=== PATIENT | female | born 1940 | race Caucasian/White ===

== ENCOUNTER 2023-06-13 03:48 | Inpatient (IN) | payer OTHER, SELFPAY ==
[2023-06-12 20:32] VITALS: BMI 25.7
[2023-06-12 20:34] VITALS: BP 147/79
[2023-06-12 20:51] LABS: % Basophils 0.3 % (0-2); % Eosinophils 1.3 % (0-6); % Immature Granulocytes 0.2 % (0-0.5); % Lymphocytes 9.2 % (20.5-51.1); % Monocytes 7.3 % (1.7-9.3); % Neutrophils 81.7 % (42.2-75.2); Absolute Eosinophils 0.1 10^3/uL (0-0.7); Absolute Lymphocytes 0.9 10^3/uL (1.2-3.4); Absolute Monocytes 0.7 10^3/uL (0.1-0.6); Hematocrit 37.9 % (37.0-47.0); Mean Corp Hgb Conc. 34.3 g/dL (33.0-37.0); Mean Corpuscular Hgb 33.5 pg (27.0-31.0); Mean Corpuscular Volume 97.7 fL (81.0-99.0); Mean Platelet Volume 9.1 fL (7.4-10.4); Nucleated Red Blood Cells % 0 %; Platelet Count 308 10^3/uL (130-400); Red Blood Cell Count 3.88 10^6/uL (4.20-5.40); Red Cell Dist. Width 12.4 % (11.5-14.5); White Blood Cell Count 9.8 10^3/uL (4.8-10.8)
[2023-06-12 21:00] VITALS: BP 136/70
[2023-06-12 21:01] LABS: ALT (SGPT) 20 U/L (0-35); AST (SGOT) 23 U/L (14-36); Albumin 4.3 g/dl (3.5-5.0); Alkaline Phosphatase 85 U/L (38-126); Blood Urea Nitrogen 34 mg/dl (7-17); Calcium 9.4 mg/dl (8.4-10.2); Carbon Dioxide 25 mmol/L (22-30); Chloride 106 mmol/L (98-107); Estimated Creatinine Clearance 24 ml/min; Glucose 109 mg/dl (70-99); Potassium 4.4 mmol/L (3.5-5.1); Sodium 137 mmol/L (135-145); Total Bilirubin 0.4 mg/dl (0.2-1.3); Total Protein 7.1 g/dl (6.3-8.2); eGFR 40.55
--- NOTE | 2023-06-12 21:01 | ED.GENMED ---
History of Present Illness
General
Chief Complaint: Rectal Bleeding
Source: patient and records
Time Seen by Provider: 06/12/23 20:31
Nursing documentation reviewed up to this point in time: agreed with
Travel History
Have you had any contact with someone who has COVID-19?: No
Do you have any symptoms of coronavirus? Fever > 100 degrees, chills, cough, shortness of breath, sore throat, loss of taste or smell, muscle aches, or headache?: No
History of Present Illness
History of Present Illness:
83-year-old female presents with rectal bleeding onset earlier today she had intermittent bleeding previously from hemorrhoids told she was not a surgical candidate she takes Eliquis twice a day she had a prior stroke apparently has had A-fib, she
has no abdominal pain no hematuria, feels scared but no weakness no syncope
Past History
Past History
ED Past Medical History: CVA, HTN, Hypercholesterolemia, Psychiatric (Depression/anxiety) and Other (DVT, spinal stenosis)
ED Past Surgical History: None
Social History
Tobacco: Non-smoker
Alcohol: Occasional
Drug: None
Personal:
Living: other (Independent living [place])
Employment: Retired
Family History
Family History: CAD and Other (Stroke)
Review of Systems
Review of Systems
All Other Systems: Not applicable
Constitutional: Denies fatigue
EENT: Reports no symptoms
Respiratory: Reports no symptoms
Cardiac: Reports no symptoms
ABD/GI: Reports bloody stools (Blood clots); Denies pain
Musculoskeletal: Reports no symptoms
Skin: Reports no symptoms
Hematologic/Lymphatic: Reports no symptoms
Psychiatric: Reports no symptoms
Phy Exam
Physical Exam
Physical Exam:
Physical Exam
General: no apparent distress, not acutely ill
Neck: No jaundice
Heart: Regular
Lungs: no acute respiratory distress.
Abdomen: Nontender
Rectal, excoriated red external hemorrhoids no obvious active bleeding
Neuro: alert and oriented. Left arm greater than leg weakness
Skin: no rash
Psychiatric: cooperative
Extremities: no edema.
Course
Orders/Labs/Results
Orders:
Orders
06/12/23 20:31
IV Insert/Care/Rem.- Treatment PRN
06/12/23 20:37
Comprehensive Metabolic Panel Urgent
PTT Urgent
Prothrombin Time Urgent
06/12/23 20:38
Type+Screen Urgent
Complete Blood Count/With Diff Urgent
06/12/23 20:52
Electrocardiogram (*1) Urgent
Reason for Study: Atrial Fibrillation
EKG- Treatment ONCE
06/12/23 21:03
Phenyleph/Pramoxin/Glycr/W.pet [Preparation H Max Strength Pain Relief Cream] See Dose Instructions RECTAL NOW STA
06/12/23 22:18
CT Abd/pelvis W Iv Cont Urgent
Comment:
Reason For Exam: pain bloody stools
06/12/23 22:19
STOOL [C difficile Antigen & Toxins] Urgent
ECDRIC Source: Feces/Stool
Specimen Description:
Stool Culture Urgent
CEDRIC Source: Feces/Stool
Specimen Description:
0.9% Sodium Chloride 1000 ml [Nss] 1,000 ml IV BOLUS
Morphine Sulfate 2 mg IV NOW STA
06/12/23 23:40
Urinalysis Reflex To Culture Urgent
Date Specimen was Collected: 06/13/23
Time Specimen was Collected: 00:31
06/13/23 00:08
Straight cath- Treatment ONCE
Morphine Sulfate 2 mg IV NOW STA
06/13/23 01:02
Urine Microscopic Reflex Cult Urgent
Urine Culture Urgent
CEDRIC Source: U
Specimen Description:
Date Specimen was Collected: 06/13/23
Time Specimen was Collected: 00:31
01/17/24 01:48
Aztreonam [Azactam] 2,000 mg IV NOW STA
Abnormal Lab Results
06/12/23 06/12/23 06/13/23
20:37 20:38 01:02
RBC 3.88 L 10^6/uL
(4.20-5.40)
MCH 33.5 H pg
(27.0-31.0)
Absolute Neuts (auto) 8.0 H 10^3/uL
(1.4-6.5)
Absolute Lymphs (auto) 0.9 L 10^3/uL
(1.2-3.4)
Absolute Monos (auto) 0.7 H 10^3/uL
(0.1-0.6)
Neutrophils % 81.7 H %
(42.2-75.2)
Lymphocytes % 9.2 L %
(20.5-51.1)
BUN 34 H mg/dl
(7-17)
Creatinine 1.3 H mg/dL
(0.6-1.0)
Glucose 109 H mg/dl
(70-99)
Ur Occult Blood Reflex 4+ A
(Negative)
Urine Nitrite (Reflex) Positive A
(Negative)
Leukocyte Esterase Rfl 2+ A
(Negative)
Urine RBC >100 A /HPF
(0-2)
Urine WBC (Reflex) >100 A /HPF
(0-5)
Urine Bacteria (Reflex) Many A
(Negative)
06/12/23 20:38
06/12/23 20:37
Vital Signs
Initial and Last Documented VS:
Initial Vital Signs
Temp Pulse Resp Pulse Ox
98.2 F 87 16 97
06/12/23 20:32 06/12/23 20:32 06/12/23 20:32 06/12/23 20:32
Last Documented Vital Signs
Temp Pulse Resp BP Pulse Ox
98.6 F 90 22 149/71 96
06/13/23 00:50 06/13/23 01:15 06/13/23 01:15 06/13/23 01:00 06/13/23 01:15
MDM/Problems Addressed
Differential Diagnosis Includes:
Hemorrhoidal bleeding anemia diverticulosis malignancy
MDM/Problems Addressed:
Rectal bleeding
Chronic conditions affecting care:
A-fib anticoagulated
Acute Exacerbation and/or Progression of Chronic Illness:
A-fib anticoagulated
*Pulse Oximetry
Patient hypoxic: no
*Critical Care Note
Total Time (30-74mins, 75-104mins- exclusive of procedures): Not Applicable
Update Note
Update Note:
9:10 PM bleeding appears to have slowed down to my exam but she did have a lot of blood on her garment vital signs are stable however situation she has had a stroke not a great candidate to stop her anticoagulant
Will check H&H start some local therapies that her hemorrhoids check EKG
9:57 PM H&H noted
10:15 PM patient has lower abdominal cramping we will check stool studies CT scan prior CT noted start on fluids
1150pm---Ct noted, will check Ua
1:49 AM urinalysis noted culture pending allergies noted patient requiring multiple doses of pain meds, also has some painless rectal bleeding earlier we will admit
ED Attending Note
-
Portions of this chart may have been created with voice recognition software.� Occasional wrong word or��sound alike� substitutions may have occurred due to the inherent limitations of voice recognition software.
Discharge Plan
Departure
Patient Disposition: Admit
Date of Disposition: 06/13/23
Time of Disposition: 01:49
Admit to: Med/Surg
Presentation/result/management discussed w/ accepting MD/DO: Hospitalist
Patient with high blood pressure during this ER visit?: No
Condition: Fair
Discharge Problem:
Painless rectal bleeding, Urinary tract infection
Prescriptions:
No Action
tramadol 50 mg Tablet
50 mg PO DAILY PRN (Reason: mild pain)
lorazepam 0.5 mg Tablet
0.5 mg PO [id number] MDD 2 tab/24 hr PRN (Reason: Anxiety)
bisacodyl 10 mg Suppository
10 mg CA DAILY PRN (Reason: constipation)
polyethylene glycol 3350 [Miralax] 17 gram/dose Powder
25.5 g PO DAILY
olopatadine 0.2 % Drops
1 drp BOTH EYES DAILYPRN PRN (Reason: conjunctivitis)
Repatha SureClick 140 mg/mL Pen Injector
140 mg SC MONTHLY@2200
Rx Instructions:
06/12/2023, administer on the 1st of every month.
acetaminophen 325 MG tablet
650 mg PO BIDPRN PRN (Reason: mild pain)
citalopram 10 MG tablet
10 mg PO HS
Rx Instructions:
06/12/2023, take with 40 mg for a total of 50 mg.
citalopram 40 mg Tablet
40 mg PO HS
Rx Instructions:
06/12/2023, take with 10 mg for a total of 50 mg.
docusate sodium 100 MG capsule
100 mg PO HS
Metamucil Packet
1 packet PO DAILY
acetaminophen 500 mg Tablet
1,000 mg PO Q8HPRN PRN (Reason: mild pain)
pantoprazole [Protonix] 40 mg Tablet,Delayed Release (Dr/Ec)
40 mg PO DAILY
Biofreeze 0.2-3.5 % Gel
1 applic TOPICAL QIDPRN PRN (Reason: mild pain)
Myrbetriq 25 mg Tablet Extended Release 24 Hr
25 mg PO QPM
sennosides [senna] 8.6 mg Tablet
8.6 mg PO HS PRN (Reason: constipation)
Preparation H Suppository
1 supp CA DAILYPRN PRN (Reason: pruritis)
nystatin 100,000 unit/gram Powder
1 applic TOPICAL BID PRN (Reason: vulvovaginal candidiasis/yeast infection)
fluticasone propionate 50 mcg/actuation [place],Suspension
2 spray INTRANASAL DAILY PRN (Reason: allergic rhinitis)
Centrum Silver Tablet
1 tab PO DAILY
Salonpas Adhesive Patch,Medicated
1 patch TOPICAL [id number] PRN (Reason: apply to back and/or knees)
Preparation H Cream
1 applic topical DAILYPRN PRN (Reason: inflamed hemorrhoids)
Balmex (petrolatum) 51.1 % Ointment
1 applic TOPICAL DAILY PRN (Reason: skin irritation)
Desitin Daily Defense 13 % Cream
1 applic TOPICAL TIDPRN PRN (Reason: rectal area pain)
Calmol-4 76-10 % Suppository
1 supp CA HS
Boost 0.04 gram- 1 kcal/mL Liquid
1 ea PO DAILY
Benadryl Itch Stopping Cream
1 applic topical Q8HPRN PRN (Reason: skin rash)
Eliquis 2.5 MG tablet
2.5 mg PO BID Qty: 60 0RF
Referrals:
Dorothea Asencio CRNP [Family Provider] -
Interventions
Interventions:
*Risk Screen - Suicide Last Done: 06/12/23 20:32
*General Assessment Last Done: 06/12/23 20:32
*Neglect/Abuse Screening Last Done: 06/12/23 20:32
ED- Fall Risk Assessment Last Done: 06/12/23 20:32
*ED COVID-19 Vaccine History Last Done: 06/12/23 20:32
FT-Jsyois-Oznjnvcqpd Assessment Last Done: 06/12/23 20:32
ED- Cardiac Assessment Last Done: 06/12/23 20:32
ED- Pulmonary Assessment Last Done: 06/12/23 20:32
[2023-06-12 21:02] LABS: APTT 29.3 Sec (23.4-35.0); INR 1.09; PT 14.4 Sec (11.4-14.6)
[2023-06-12] MEDS: PREPARATION H MAX STRENGTH PAIN RELIEF CREAM 1 APPLIC RECTAL (21:29)
[2023-06-12 22:00] VITALS: BP 133/68
[2023-06-12] MEDS: NSS 1000 IV (22:30)
[2023-06-12] MEDS: MORPHINE SULFATE 2 MG IV (22:31)
[2023-06-13] VITALS (30 sets, daily range): BP systolic 82–149; BP diastolic 47–103; PULSE 79–80; O2SAT 96–97
[2023-06-13 01:13] LABS: Urine Albumin Trace (Neg - Trace); Urine Bilirubin Negative (Negative); Urine Color Yellow; Urine Glucose Negative (Negative); Urine Ketone Negative (Negative); Urine Leukocyte 2+ (Negative); Urine Nitrite Positive (Negative); Urine Occult Blood 4+ (Negative); Urine Specific Gravity 1.005 (<1.030); Urine Urobilinogen Negative (Neg - 1+)
[2023-06-13 01:14] LABS: Urine Character Cloudy (Clear)
[2023-06-13] MEDS: MORPHINE SULFATE 2 MG IV (01:16)
[2023-06-13 01:28] LABS: Urine Amorphous Seen; Urine Bacteria Many (Negative); Urine Red Blood Cell >100 /HPF (0-2); Urine Squamous Cell >30 /LPF (Few); Urine Urothelial Cell >30 /LPF (FEW); Urine White Cell >100 /HPF (0-5)
[2023-06-13] MEDS: AZACTAM 2000 MG IV (02:06)
[2023-06-13] MEDS: ZOFRAN 4 MG IV (02:14)
[2023-06-13] MEDS: OFIRMEV 100 IV (02:15)
--- NOTE | 2023-06-13 03:18 | HPS.HSE ---
Family Physician
-
Family Physician: Dorothea Asencio
Chief Complaint
-
'Side Pain', Rectal Bleeding
History of Present Illness
Patient is an 83y F with PMH significant for multiple prior strokes, dyslipidemia and internal hemorrhoids who presents to ED complaining of rectal bleeding and lower back / side pain. Patient states that she has noted BRBPR on multiple
occasions today. She has discomfort / burning in the rectal area. She also complains of pain / discomfort on her L and R iliac areas. This pain radiates across her back. No radiation into the legs. Patient had some nausea here in the ED, but no
emesis. She denies any fevers or chills. She denies any urinary complaints and states that she has had UTIs in the past and knows when she has one.
Patient had been evaluated previously for hemorrhoid surgery; however, she states that she was told she was prohibitive risk for surgery.
She takes Eliquis for her history of recurrent / multiple CVAs; although, it does not appear that she has ever been noted to have A-Fib.
Medical History
Past Medical History
Past Medical History: Reports Other
Additional Past Medical History:
ASCVD / Multiple Prior CVAs
Dyslipidemia
Hemorrhoids (External and Internal)
Spinal Stenosis / Chronic Back Pain
Hypervascular Bladder Lesion
Left Renal Cystic Lesion
History of LLE DVT (post-CVA)
Large Hiatal Hernia / GERD
Statin Intolerance
Past Surgical History: Reports Other
Additional Past Surgical History:
T&A
RLE Vein Stripping
Social History
Tobacco: Non-smoker
Alcohol: None
Drug: None
Living: Jail
Family History
Family History: Other (Mother: Longevity, CVA Father: CAD Sister: CVA, HTN)
Allergies / Home Medications
Allergies reflects when Allergies were last updated in [facility].
Home Medications with original date entered in [facility]
Allergy/Medication List:
Allergies
Allergy/AdvReac Type Severity Reaction Status Date / Time
aspirin [From Aggrenox] Allergy Nausea / Verified 04/16/23 14:22
Vomiting
Cephalosporins Allergy Unknown Verified 04/16/23 14:22
dipyridamole [From Aggrenox] Allergy Nausea / Verified 04/16/23 10:28
Vomiting
loratadine Allergy Unknown Verified 04/16/23 14:22
Penicillins Allergy Unknown Verified 04/16/23 10:28
potassium Allergy Unknown Verified 04/16/23 14:22
Sdggtvw-QTU-SzD Reductase Allergy Unknown Verified 04/16/23 14:22
Inhibitor
Sulfa (Sulfonamide Allergy Unknown Verified 04/16/23 10:28
Antibiotics)
Home Medications
apixaban 2.5 mg tablet (Eliquis) 2.5 mg PO BID #60 tabs 03/08/21
acetaminophen 325 mg tablet 650 mg PO BIDPRN PRN mild pain 11/19/22
bisacodyl 10 mg rectal suppository [address] DAILY PRN constipation 11/19/22
citalopram 10 mg tablet 10 mg PO HS 11/19/22
evolocumab 140 mg/mL subcutaneous pen injector (Repatha SureClick) 140 mg SC MONTHLY@2200 11/19/22
lorazepam 0.5 mg tablet 0.5 mg PO [id number] PRN Anxiety 11/19/22
olopatadine 0.2 % eye drops 1 drp BOTH EYES DAILYPRN PRN conjunctivitis 11/19/22
polyethylene glycol 3350 17 gram/dose oral powder (Miralax) 25.5 g PO DAILY 11/19/22
tramadol 50 mg tablet 50 mg PO DAILY PRN mild pain 11/19/22
acetaminophen 500 mg tablet 1,000 mg PO Q8HPRN PRN mild pain 04/16/23
camphor-menthol 0.2 %-3.5 % topical gel 1 applic topical QIDPRN PRN mild pain 04/16/23
citalopram 40 mg tablet 40 mg PO HS 04/16/23
docusate sodium 100 mg capsule 100 mg PO HS 04/16/23
mirabegron 25 mg tablet,extended release 24 hr (Myrbetriq) 25 mg PO QPM 04/16/23
pantoprazole 40 mg tablet,delayed release (Protonix) 40 mg PO DAILY 04/16/23
psyllium 1 packet PO DAILY 04/16/23
Benadryl Itch Stopping Cream 1 applic topical Q8HPRN PRN skin rash 06/12/23
camphor-methyl salicylate-menthol topical patch 1 patch topical [id number] PRN apply to back and/or knees 06/12/23
cocoa butter-shark liver oil rectal suppository [address] DAILYPRN PRN pruritis 06/12/23
cocoa butter-zinc oxide 76 %-10 % rectal suppository (Calmol-4) [address] HS 06/12/23
fluticasone propionate 50 mcg/actuation nasal spray,suspension 2 spray intranasal DAILY PRN allergic rhinitis 06/12/23
food supplemt, lactose-reduced 0.04 gram-1 kcal/mL oral liquid (Boost) 1 ea PO DAILY 06/12/23
oxkjzxbbuejl-degrperl-liiyuo tablet 1 tab PO DAILY 06/12/23
nystatin 100,000 unit/gram topical powder 1 applic topical BID PRN vulvovaginal candidiasis/yeast infection 06/12/23
phenyleph-shark liver ixk-qcdzje-itd rectal cream 1 applic topical DAILYPRN PRN inflamed hemorrhoids 06/12/23
sennosides 8.6 mg tablet (senna) 8.6 mg PO HS PRN constipation 06/12/23
white petrolatum 51.1 % topical ointment (Balmex (petrolatum)) 1 applic topical DAILY PRN skin irritation 06/12/23
zinc oxide 13 % topical cream (Desitin Daily Defense) 1 applic topical TIDPRN PRN rectal area pain 06/12/23
Review of Systems
-
History Source: Patient
A 12 point ROS was completed and negative except as noted: Yes
Constitutional: Denies Fever or Chills
Respiratory: Denies Cough or Trouble Breathing
Cardiac: Denies Chest Pain or Palpitations
Abdomen/GI: Reports Abdominal Pain, Nausea and Other (Rectal bleeding / burning.); Denies Vomiting, Diarrhea or Constipated
: Reports Frequency; Denies Dysuria or Flank Pain
Musculoskeletal: Reports Other (Back Pain.)
Neurological: Denies Dizzy or Headache
Psych: Denies Depression or Anxiety
Physical Exam
Vital Signs
Vital Signs
Temp Pulse Resp BP Pulse Ox
98.6 F 95 21 147/81 93
06/13/23 00:50 06/13/23 02:15 06/13/23 02:15 06/13/23 02:01 06/13/23 02:15
Physical Exam
General: Other (83y F in no acute distress.)
HEENT: Moist mucous membranes and PERRLA
Respiratory: Clear; No Wheezes, Rales or Rhonchi
Cardiac: S1/S2, Regular Rhythm and Murmur (II/ MARNI)
GI: Soft, Non Distended, Normal Bowel Sounds and Other (Mildly / diffusely tender. Pos BS. No rebound or guarding.)
Musculoskeletal: No Clubbing, No Cyanosis and No Edema
Neuro: AO x 3
Laboratory Results
-
06/12/23 20:38
06/12/23 20:37
Laboratory Results
PT 14.4 Sec (11.4-14.6) 06/12/23 20:37
INR 1.09 06/12/23 20:37
APTT 29.3 Sec (23.4-35.0) 06/12/23 20:37
Total Bilirubin 0.4 mg/dl (0.2-1.3) 06/12/23 20:37
AST 23 U/L (14-36) 06/12/23 20:37
ALT 20 U/L (0-35) 06/12/23 20:37
Alkaline Phosphatase 85 U/L (38-126) 06/12/23 20:37
Impression/Plan
-
A/P: Patient is an 83y F with PMH significant for priro strokes and known hemorrhoids who presents to ED complaining of rectal bleeding.
Rectal Bleeding
Internal / External Hemorrhoids
- Admit for further evaluation and treatment.
- Seems very likely that hemorrhoids are source of bleeding; though, with complain of abdominal discomfort will rule out other causes.
- Hgb is stable / somewhat higher than prior baseline.
- Follow for recurrent bleeding.
- Hold Eliquis (see below).
- GI evaluation.
- Monitor for any new symptoms, BP changes, etc.
- Patient previously set for hemorrhoid surgery, but states that she was told she was not a candidate.
- Continue bowel regimen to avoid straining / constipation.
Pain Syndrome
Spinal Stenosis
- Unclear if pain 'on both sides' as patient describes it is at all related to rectal bleeding.
- Patient with known chronic pain issues and spinal stenosis as well.
- Follow for any new / worsening symptoms.
- Lidoderm +/- tramadol as needed for pain control.
- PT / OT evaluations.
Questionable UTI
- UA is contaminated and not useful in diagnosis.
- CT findings noted and appear to be chronic based on prior imaging studies.
- Patient adamant that she has no symptoms c/w UTI.
- Will observe off of further abx for now.
- Follow-up culture data and monitor for any new symptoms.
ASCVD
- Patient with history of multiple prior CVAs; though, no documented arrhythmia / A-Fib.
- It is not entirely clear why she is on Eliquis in lieu of more traditional antiplatelet regimen.
- Will hold Eliquis acutely given bleeding.
- ? remain off of this if patient can tolerates ASA +/- Plavix.
- No recent / new focal neurologic symptoms.
- On Repatha as she has verified statin intolerance.
Hiatal Hernia / GERD
- Stable. Continue PPI.
Renal / Bladder Abnormalities
- CT scan shows L renal lesion (probably cystic lesion noted on prior studies) and bladder thickening (vascular lesions appreciated on prior studies as well).
- Neither seems acutely relevant.
- Follow-up as an outpatient with comparison / additional imaging if desired.
History of LLE DVT
DVT Prophylaxis
- Prior DVT occurred post-stroke, presumably due to hospitalization / immobility.
- Holding Eliquis given acute bleeding as noted above.
- SCDs for now.
Code Status: Full
[2023-06-13] MEDS: NSS 500 IV (04:33)
[2023-06-13 04:37] LABS: Hematocrit 30.9 % (37.0-47.0); Hemoglobin 10.6 g/dL (12.0-16.0); Mean Corp Hgb Conc. 34.3 g/dL (33.0-37.0); Mean Corpuscular Hgb 33.1 pg (27.0-31.0); Mean Corpuscular Volume 96.6 fL (81.0-99.0); Platelet Count 230 10^3/uL (130-400); Red Cell Dist. Width 12.3 % (11.5-14.5); White Blood Cell Count 10.2 10^3/uL (4.8-10.8)
[2023-06-13 04:50] LABS: Blood Urea Nitrogen 32 mg/dl (7-17); Calcium 8.5 mg/dl (8.4-10.2); Carbon Dioxide 21 mmol/L (22-30); Chloride 106 mmol/L (98-107); Estimated Creatinine Clearance 29 ml/min; Glucose 115 mg/dl (70-99); Potassium 4.2 mmol/L (3.5-5.1); Sodium 134 mmol/L (135-145); eGFR 49.55
[2023-06-13] MEDS: NSS 1000 IV (05:58)
--- NOTE | 2023-06-13 07:41 | W.PN.HOSP.TC ---
Today's Communication/Plan
-
see plan
Assessment / Plan
Assessment / Plan
A/P:� Patient is an 83y F with PMH significant for prior strokes and known hemorrhoids who presents to ED complaining of rectal bleeding.
Rectal Bleeding
Internal / External Hemorrhoids
�- Seems very likely that hemorrhoids are source of bleeding; though, with complain of abdominal discomfort will rule out other causes.
�- Hgb drop overnight from 13 to 10.6, no reported bleeding overnight (13 outlier?) Repeat at 10AM. --> blood consent signed
�- Hold Eliquis (see below).
�- GI evaluation.
�- Patient previously set for hemorrhoid surgery, but states that she was told she was not a candidate.
�- Continue bowel regimen to avoid straining / constipation.
Pain Syndrome
Spinal Stenosis
�- Patient with known chronic pain issues and spinal stenosis as well, likely MSK as exacerbated by movement
�- trial of K pad
�- Lidoderm +/- tramadol as needed for pain control.
�- PT / OT evaluations.
Questionable UTI
�- UA is contaminated and not useful in diagnosis.
�- CT findings noted and appear to be chronic based on prior imaging studies.
�- Patient adamant that she has no symptoms c/w UTI.
�- Will observe off of further abx for now.
�- Follow-up culture data and monitor for any new symptoms.
ASCVD
�- Patient with history of multiple prior CVAs; though, no documented arrhythmia / A-Fib.
�- It is not entirely clear why she is on Eliquis in lieu of more traditional antiplatelet regimen.
�- per Dr. Mcrae's note 03/08/21: '�Patient refused to take aspirin and was fine starting Eliquis.' after acute left occipital infarct and 'Patient considering going back on aspirin and stopping Eliquis.'
- consider switching to aspirin on DC once acute bleeding resolved - will discuss with PCP as there is also dx DVT in chart (although patient denies?)
�- On Repatha as she has verified statin intolerance.
Hiatal Hernia / GERD
�- Stable.� Continue PPI.
Renal / Bladder Abnormalities
�- CT scan shows L renal lesion (probably cystic lesion noted on prior studies) and bladder thickening (vascular lesions appreciated on prior studies as well).
�- Neither seems acutely relevant.
�- Follow-up as an outpatient with comparison / additional imaging if desired.
History of LLE DVT
DVT Prophylaxis
�- Prior DVT occurred post-stroke, presumably due to hospitalization / immobility.
�- Holding Eliquis given acute bleeding as noted above.
�- SCDs for now.
Code Status:� Full
Anticipated Discharge: 24 - 48 hours
Subjective/Interval History
-
Date of Service: June 13, 2023
no bleeding overnight confirmed by RN report
patient reporting pain in her sides, particularly left she states she has had it for a while and she's given exercises and that can aggravate pain
Objective Data
-
Labs:
Laboratory Results
06/12/23 06/12/23 06/13/23
20:37 20:38 04:31
WBC 9.8 10.2
Hgb 13.0 10.6 L
Hct 37.9 30.9 L
Plt Count 308 230 D
PT 14.4
INR 1.09
APTT 29.3
Sodium 137 134 L
Potassium 4.4 4.2
Chloride 106 106
Carbon Dioxide 25 21 L
BUN 34 H 32 H
Creatinine 1.3 H 1.1 H
Glucose 109 H 115 H
Calcium 9.4 8.5
Total Bilirubin 0.4
AST 23
ALT 20
Alkaline Phosphatase 85
06/13/23
10:00
WBC
Hgb Pending
Hct Pending
Plt Count
PT
INR
APTT
Sodium
Potassium
Chloride
Carbon Dioxide
BUN
Creatinine
Glucose
Calcium
Total Bilirubin
AST
ALT
Alkaline Phosphatase
Vital Signs:
Vital Signs
Temp Pulse Resp BP Pulse Ox
98.6 F 87 17 115/60 96
06/13/23 00:50 06/13/23 06:45 06/13/23 06:45 06/13/23 06:30 06/13/23 06:45
Review of Systems
-
History Source: Patient
All other systems: Reviewed and negative
Physical Exam
-
General: No Apparent Distress and Appears Chronically Ill
HEENT: PERRLA
Respiratory: Clear to Auscultation; Negative Wheezes
Cardiac: S1/S2
GI: Other (tenderness b/l upper abdomen below rib cage )
Musculoskeletal: No Clubbing, No Cyanosis and No Edema
Neuro: AO x 3
Psych: Anxious
Data Reviewed
-
Diagnostic Radiology: Report Reviewed by me
Labs: Labs Reviewed by me
[2023-06-13] MEDS: MIRALAX 17 GRAMS PO (07:45)
[2023-06-13] MEDS: TYLENOL 1000 MG PO ×3 (07:45→21:44)
[2023-06-13] MEDS: PROTONIX 40 MG PO (07:45)
[2023-06-13] MEDS: LIDOCAINE 4% PATCH 1 PATCH TOPICAL (07:46)
[2023-06-13] MEDS: COLACE 100 MG PO ×2 (07:46→20:36)
--- NOTE | 2023-06-13 10:09 | CON.GI ---
Addendum entered and electronically signed by Billy Burciaga MD 06/13/23 12:21:
I saw and examined the patient.
The HEAD OF ADVERTISING or PA's note was reviewed and I agree with the note.
Comment: 83yo female presents with rectal bleeding. She has hx hemorrhoids and was set up for surgery March but changed mind. She has had constipation treated with miralax and suppository. She is on Eliquis for hx DVT and CVA. Last
colonoscopy was years ago, in [place]. She had deferred colonoscopy in past. Now her Hgb was 13 on admission, down to 10 on repeat. She took Eliquis today
REC:
Pt states she is agreeable to colonoscopy now
Will hold eliquis, took a dose today
Prep for colonoscopy after washout
Trend Hgb
Possible causes hemorrhoids, diverticular, ectasia, malignancy
Original Note:
Consultation
-
Date/Time Consultation Requested: 06/13/236
Date/Time Consultation Performed: 06/13/23 0945
Requesting Provider: Dr. Rodriguez
Performing Provider: Dr. Burciaga/VANESSA Cervantes
Reason for Consultation: rectal bleeding
Medical History
Chief Complaint / HPI
Chief Complaint: rectal bleeding
History of Present Illness:
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
grade 4 hemorrh[address] has seen Dr[address] Torres and Dr. Chester in the past. Patient was supposed to have hemorrhoidal surgery in March 2023 however canceled the surgery. The patient decided to pursue medical management. The patient states that
she had not had a bowel movement for 5 days leading up to her admission. She states that she was given a suppository every day and MiraLAX was increased and the on the fifth day she had a bowel movement. She states that she had rectal bleeding
every day however the night prior to admission she started having increased rectal bleeding with some clots which prompted her evaluation in the ER. The patient is on Eliquis given her history of DVT and multiple CVAs. The patient has had no
further signs of bleeding since arrival in the emergency room per patient and RN. The patient did have some mild nausea prior to arrival in the emergency room. She is tolerating a clear liquid diet. She also does complain of bilateral hip pain.
She denies any fevers, chills, vomiting, melena, dysphagia or odynophagia.
Past Medical History
Past Medical History: CVA, Hypercholesterolemia and Other (Chronic back pain, spinal stenosis, hemorrhoids, hypervascular bladder lesion, left renal cystic lesion, left lower extremity DVT, large hiatal hernia, GERD, grade 4 hemorrhoids)
Past Surgical History: Tonsilectomy and Other (Right lower extremity vein stripping)
Social History
Tobacco: Non-Smoker
Alcohol: None
Drug: None
Living: Prison
Family History
Family History: Other (No family history of gastrointestinal malignancy or inflammatory bowel disease)
Allergies / Home Medications
Allergy/AdvReac Type Severity Reaction Status Date / Time
aspirin [From Aggrenox] Allergy Nausea / Verified 04/16/23 14:22
Vomiting
Cephalosporins Allergy Unknown Verified 04/16/23 14:22
dipyridamole [From Aggrenox] Allergy Nausea / Verified 04/16/23 10:28
Vomiting
loratadine Allergy Unknown Verified 04/16/23 14:22
Penicillins Allergy Unknown Verified 04/16/23 10:28
potassium Allergy Unknown Verified 04/16/23 14:22
Sjqgwlk-SOB-KeK Reductase Allergy Unknown Verified 04/16/23 14:22
Inhibitor
Sulfa (Sulfonamide Allergy Unknown Verified 04/16/23 10:28
Antibiotics)
Medication Instructions Recorded
apixaban 2.5 mg tablet (Eliquis) 2.5 mg PO BID #60 tabs 03/08/21
acetaminophen 325 mg tablet 650 mg PO BIDPRN PRN mild pain 11/19/22
bisacodyl 10 mg rectal suppository 10 mg SD DAILY PRN constipation 11/19/22
citalopram 10 mg tablet 10 mg PO HS Mental Health 11/19/22
evolocumab 140 mg/mL subcutaneous 140 mg SC MONTHLY@2200 High 11/19/22
pen injector (Dion Lala) Cholesterol
lorazepam 0.5 mg tablet 0.5 mg PO [id number] PRN Anxiety 11/19/22
olopatadine 0.2 % eye drops 1 drp BOTH EYES DAILYPRN PRN 11/19/22
conjunctivitis
polyethylene glycol 3350 17 25.5 g PO DAILY 11/19/22
gram/dose oral powder (Miralax)
tramadol 50 mg tablet 50 mg PO DAILY PRN mild pain 11/19/22
acetaminophen 500 mg tablet 1,000 mg PO Q8HPRN PRN mild pain 04/16/23
camphor-menthol 0.2 %-3.5 % 1 applic topical QIDPRN PRN mild 04/16/23
topical gel pain
citalopram 40 mg tablet 40 mg PO HS Mental Health 04/16/23
docusate sodium 100 mg capsule 100 mg PO HS Constipation 04/16/23
mirabegron 25 mg tablet,extended 25 mg PO QPM Urinary Issue 04/16/23
release 24 hr (Myrbetriq)
pantoprazole 40 mg tablet,delayed 40 mg PO DAILY 04/16/23
release (Protonix)
psyllium 1 packet PO DAILY 04/16/23
Benadryl Itch Stopping Cream 1 applic topical Q8HPRN PRN skin 06/12/23
rash
camphor-methyl salicylate-menthol 1 patch topical [id number] PRN apply 06/12/23
topical patch to back and/or knees
cocoa butter-shark liver oil 1 supp SD DAILYPRN PRN pruritis 06/12/23
rectal suppository
cocoa butter-zinc oxide 76 %-10 % 1 supp SD HS Skin Issues 06/12/23
rectal suppository (Calmol-4)
fluticasone propionate 50 2 spray intranasal DAILY PRN 06/12/23
mcg/actuation nasal allergic rhinitis
spray,suspension
food supplemt, lactose-reduced 1 ea PO DAILY nutrition 06/12/23
0.04 gram-1 kcal/mL oral liquid
(Boost)
vibcqoeceabg-kidonyce-ajeacu tablet 1 tab PO DAILY Supplement 06/12/23
nystatin 100,000 unit/gram topical 1 applic topical BID PRN 06/12/23
powder vulvovaginal candidiasis/yeast
infection
phenyleph-shark liver 1 applic topical DAILYPRN PRN 06/12/23
fid-fctoew-iys rectal cream inflamed hemorrhoids
sennosides 8.6 mg tablet (senna) 8.6 mg PO HS PRN constipation 06/12/23
white petrolatum 51.1 % topical 1 applic topical DAILY PRN skin 06/12/23
ointment (Balmex (petrolatum)) irritation
zinc oxide 13 % topical cream 1 applic topical TIDPRN PRN rectal 06/12/23
(Desitin Daily Defense) area pain
Review of Systems
-
All other systems: A 12 pt ROS was Negative except as stated above in HPI
Vital Signs
Temp Pulse Resp BP Pulse Ox
98.1 F 88 16 113/53 95
06/13/23 07:51 06/13/23 07:51 06/13/23 07:51 06/13/23 07:51 06/13/23 07:51
Physical Exam
Exam
General: No Apparent Distress
HEENT: Normocephalic
Respiratory: Clear (Anterior)
Cardiac: Regular Rhythm (Tachy at 109)
GI: Soft, Non Tender, Non Distended and Normal Bowel Sounds
Musculoskeletal: No Edema
Skin: Warm and Dry
Neuro: AO x 3
Psych: Calm
Results
WBC 10.2 10^3/uL (4.8-10.8) 06/13/23 04:31
Hgb 10.6 g/dL (12.0-16.0) L 06/13/23 04:31
Hct 30.9 % (37.0-47.0) L 06/13/23 04:31
MCV 96.6 fL (81.0-99.0) 06/13/23 04:31
Plt Count 230 10^3/uL (130-400) D 06/13/23 04:31
Absolute Neuts (auto) 8.0 10^3/uL (1.4-6.5) H 06/12/23 20:38
PT 14.4 Sec (11.4-14.6) 06/12/23 20:37
INR 1.09 06/12/23 20:37
APTT 29.3 Sec (23.4-35.0) 06/12/23 20:37
Sodium 134 mmol/L (135-145) L 06/13/23 04:31
Potassium 4.2 mmol/L (3.5-5.1) 06/13/23 04:31
Chloride 106 mmol/L (98-107) 06/13/23 04:31
Carbon Dioxide 21 mmol/L (22-30) L 06/13/23 04:31
BUN 32 mg/dl (7-17) H 06/13/23 04:31
Creatinine 1.1 mg/dL (0.6-1.0) H 06/13/23 04:31
Calcium 8.5 mg/dl (8.4-10.2) 06/13/23 04:31
Total Bilirubin 0.4 mg/dl (0.2-1.3) 06/12/23 20:37
AST 23 U/L (14-36) 06/12/23 20:37
ALT 20 U/L (0-35) 06/12/23 20:37
Alkaline Phosphatase 85 U/L (38-126) 06/12/23 20:37
Diagnostic Image Results:
CT Abd/Pelvis with IV contrast:
IMPRESSION:
1. There is thickening of the bladder wall which suggest possible cystitis. There is air in the bladder. Has there been recent catheterization?
2. There are fluid-filled loops of small bowel but no distended small bowel to suggest obstruction.
3. There is thinning of the renal cortices suggesting chronic renal disease. There are bilateral renal cysts. There is a probable complicated cyst on the left which is stable over an 18 month interval.
4. There is a large hiatal hernia.
5. There is severe multilevel degenerative disc disease
Preliminary report provided by [facility].
Electronically signed by Yash Daniels MD 06/13/2023 8:26 AM
Prior GI Procedures:
EGD: declined
Colonoscopy: colonoscopy about 9 years ago when she was in [facility], no polyps. That was the first and only colonoscopy she had.
08/30/22 VCE: nomal
Assessment / Plan
-
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
grade 4 hemorrhoids [address] has seen Dr[address] Torres and Dr. Chester in the past. Patient was supposed to have hemorrhoidal surgery in March 2023 however canceled the surgery. The patient decided to pursue medical management. The patient states that
she had not had a bowel movement for 5 days leading up to her admission. She states that she was given a suppository every day and MiraLAX was increased and the on the fifth day she had a bowel movement. She states that she had rectal bleeding
every day however the night prior to admission she started having increased rectal bleeding with some clots which prompted her evaluation in the ER. Patient initially presents with hemoglobin of 13.0 now down to 10.6. Patient with chronic rectal
bleeding which she states is little amounts every day with increase day prior to arrival in the ER with clots. CT findings showing air and stool in the colon. Fluid-filled loops of small bowel which are not dilated. Patient is on Eliquis for
history of prior CVAs/left lower extremity DVT.
Impression:
Rectal bleeding, chronic. With recent worsening
Anemia
Bilateral hip pain
Chronic anticoagulation
Large hiatal hernia
Plan:
-Eliquis currently on hold
-Trend hemoglobin
-Continue bowel regimen
-Discussion had with patient to possibly consider colonoscopy versus flexible sigmoidoscopy to evaluate lower portion of colon at least. Last colonoscopy approximately 9 years ago in [place]. Patient has refused endoscopic evaluations in the past.
-Transfuse if needed
Data Reviewed
-
CT Scan: Report Reviewed by me
Old Records: Reviewed
-
-
Thank you for consultation and allowing me to participate in the patient's care. Please call the [facility] during the after hours with any questions or concerns.
[2023-06-13 10:17] LABS: Hematocrit 31.8 % (37.0-47.0); Hemoglobin 10.7 g/dL (12.0-16.0)
--- NOTE | 2023-06-13 10:22 | CM ---
CM reviewed medical records. CM met with patient in room. Patient confirmed that she lives a [facility]. 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 She also received medical assistance. Patient reports that she has PT but did not
confirm that she is currently on service with them. Patient has been to [facility] in the past. Patient would be agreeable to VN or SNF as needed. CM will await PT recommendations for further discharge planning efforts.
PLAN: [facility] with VN vs. SNF
--- NOTE | 2023-06-13 14:31 | PTCARENOTE ---
Rec'd Pt from ED in bed to Room 432, 4 West. Pt is AOOx3, oriented to room with call montes in place.
--- NOTE | 2023-06-13 15:47 | W.PN.UPDATE ---
Update Note
Progress Note Update
reached out to PCP who clarified that patient has hx right MCA and lacunar infarcts, DVT 2013. She was on Eliquis from prior MD in [place] given possible intolerance of aspirin and plavix (versus failure?). Linq monitor has been discussed in
cardiology clinic in past.
[2023-06-13] MEDS: MYRBETRIQ EXTENDED RELEASE 25 MG PO (17:17)
[2023-06-13] MEDS: ULTRAM 25 MG PO (19:07)
[2023-06-13 20:15] LABS: Hemoglobin 10.2 g/dL (12.0-16.0)
[2023-06-13] MEDS: CELEXA 50 MG PO (21:42)
[2023-06-13] MEDS: SENOKOT 17.1999999999999993 MG PO (21:44)
[2023-06-14 03:27] VITALS: BP 105/57
[2023-06-14] MEDS: TYLENOL 1000 MG PO ×3 (07:33→21:37)
[2023-06-14] MEDS: LIDOCAINE 4% PATCH 1 PATCH TOPICAL (07:33)
[2023-06-14] MEDS: PROTONIX 40 MG PO (07:34)
[2023-06-14] MEDS: ULTRAM 25 MG PO (07:34)
[2023-06-14] MEDS: COLACE 100 MG PO ×2 (07:34→19:49)
[2023-06-14] MEDS: MIRALAX 17 GRAMS PO (07:36)
[2023-06-14 08:15] VITALS: BP 157/83
[2023-06-14 08:45] LABS: Hematocrit 35.3 % (37.0-47.0); Hemoglobin 11.6 g/dL (12.0-16.0); Mean Corp Hgb Conc. 32.9 g/dL (33.0-37.0); Mean Corpuscular Hgb 33.1 pg (27.0-31.0); Mean Corpuscular Volume 100.9 fL (81.0-99.0); Mean Platelet Volume 9.2 fL (7.4-10.4); Platelet Count 214 10^3/uL (130-400); Red Cell Dist. Width 12.5 % (11.5-14.5); White Blood Cell Count 5.4 10^3/uL (4.8-10.8)
[2023-06-14 09:20] LABS: Blood Urea Nitrogen 20 mg/dl (7-17); Calcium 8.6 mg/dl (8.4-10.2); Carbon Dioxide 25 mmol/L (22-30); Chloride 109 mmol/L (98-107); Estimated Creatinine Clearance 26 ml/min; Glucose 77 mg/dl (70-99); Potassium 4.2 mmol/L (3.5-5.1); Sodium 135 mmol/L (135-145); eGFR 44.64
--- NOTE | 2023-06-14 09:36 | W.PN.HOSP.TC ---
Addendum entered and electronically signed by Michael Barton MD 06/20/23 18:08:
Acute blood loss anemia noted sec to rectal bleeding.
Original Note:
Today's Communication/Plan
-
Await [place]
Follow HH
Holding Eliquis for colo
Assessment / Plan
Assessment / Plan
A/P:� Patient is an 83y F with PMH significant for prior strokes and known hemorrhoids who presents to ED complaining of rectal bleeding.
Rectal Bleeding
Internal / External Hemorrhoids
�- Seems very likely that hemorrhoids are source of bleeding; though, with complain of abdominal discomfort will rule out other causes.
�- Hgb drop overnight from 13 to 10.6, no reported bleeding overnight (13 outlier?) Repeat shows stability . --> blood consent signed
�- Hold Eliquis (see below).
�- [place] after Eliquis washout per GI.
�- Patient previously set for hemorrhoid surgery, but states that she was told she was not a candidate.
�- Continue bowel regimen to avoid straining / constipation.
Pain Syndrome
Spinal Stenosis
�- Patient with known chronic pain issues and spinal stenosis as well, likely MSK as exacerbated by movement
�- trial of K pad
�- Lidoderm +/- tramadol as needed for pain control.
�- PT / OT evaluations.
Questionable UTI
�- UA is contaminated and not useful in diagnosis.
�- CT findings noted and appear to be chronic based on prior imaging studies.
�- Patient adamant that she has no symptoms c/w UTI.
�- Will observe off of further abx for now.
�- Follow-up culture data and monitor for any new symptoms.
ASCVD
�- Patient with history of multiple prior CVAs; though, no documented arrhythmia / A-Fib.
�- It is not entirely clear why she is on Eliquis in lieu of more traditional antiplatelet regimen.
�- per Dr. Mcrae's note 03/08/21: '�Patient refused to take aspirin and was fine starting Eliquis.' after acute left occipital infarct and 'Patient considering going back on aspirin and stopping Eliquis.'
- Dr Stephens reached out to PCP 06/13 who clarified that patient has hx right MCA and lacunar infarcts, DVT 2013.� She was on Eliquis from prior MD in [place] given possible intolerance of aspirin and plavix (versus failure?).� Linq monitor has been
discussed in cardiology clinic in past. �
�- On Repatha as she has verified statin intolerance.
Hiatal Hernia / GERD
�- Stable.� Continue PPI.
Renal / Bladder Abnormalities
�- CT scan shows L renal lesion (probably cystic lesion noted on prior studies) and bladder thickening (vascular lesions appreciated on prior studies as well).
�- Neither seems acutely relevant.
�- Follow-up as an outpatient with comparison / additional imaging if desired.
History of LLE DVT
DVT Prophylaxis
�- Prior DVT occurred post-stroke, presumably due to hospitalization / immobility.
�- Holding Eliquis given acute bleeding as noted above.
�- SCDs for now.
Code Status:� Full
Anticipated Discharge: 24 - 48 hours
Subjective/Interval History
-
Date of Service: June 14, 2023
No rectal bleeding today
Back pain is chronic for her
Objective Data
-
Labs:
Laboratory Results
06/14/23
08:17
WBC 5.4
Hgb 11.6 L
Hct 35.3 L
Plt Count 214
Sodium 135
Potassium 4.2
Chloride 109 H
Carbon Dioxide 25
BUN 20 H
Creatinine 1.2 H
Glucose 77
Calcium 8.6
Vital Signs:
Vital Signs
Temp Pulse Resp BP Pulse Ox
98.8 F 76 20 157/83 93
06/14/23 08:15 06/14/23 08:15 06/14/23 08:15 06/14/23 08:15 06/14/23 08:15
I&O
06/13/23 06/14/23 06/15/23
06:59 06:59 06:59
Intake Total 700 / 700
Balance 700 / 700
Review of Systems
-
Constitutional: Denies Fever
EENT: Denies Sore Throat
Respiratory: Denies Cough or Trouble Breathing
Cardiac: Denies Chest Pain
Abdomen/GI: Denies Abdominal Pain, Nausea or Vomiting
Neuro: Denies Dizzy
Physical Exam
-
General: No Apparent Distress
HEENT: Moist Mucous Membranes
Respiratory: Clear to Auscultation
Cardiac: Regular Rhythm and S1/S2
GI: Soft and Nontender
Neuro: AO x 3
Psych: Calm; Negative Confused
Data Reviewed
-
Labs: Labs Reviewed by me
--- NOTE | 2023-06-14 10:02 | PN.CDI ---
CDI
- -
CDI:
Physician Documentation Request
Admit Date: 06/13/23 03:48
Dear Doctor Mick,
Patient admitted with rectal bleeding.
06/14 PN, 'Seems very likely that hemorrhoids are source of bleeding....Hgb drop overnight from 13 to 10.6, no reported bleeding overnight (13 outlier?)....Repeat shows stability . --> blood consent signed
Based on the above, please clarify, in your progress note, which of the following is the most likely diagnosis you are evaluating, monitoring and/or treating?
Acute blood loss anemia
Insignificant abnormal bleeding
Other
Use of terms such as suspected, likely, concern for, or probable (associated with a specific diagnosis that is being evaluated, monitored, or treated as if it exists) are acceptable and can be coded in the inpatient setting, when documented at the
time of discharge.
Thank you,
Harleen HERNANDEZ,RN,CCDS
CDI Specialist
Available via tiger text
Please use your independent medical judgment in providing your response.
--- NOTE | 2023-06-14 10:04 | CM ---
Reviewed chart and PT notes. Per PT/medical staff, patient would benefit from some skilled rehab prior to returning back to her apartment. Referral sent to [facility] for review. Will await determination regarding bed availability.
Plan: Case management will continue to follow and assist with discharge planning. Indication is for patient to receive some skilled rehab prior to returning home to her SNF. Faxed referral to [facility] through [facility]. Will await determination.
--- NOTE | 2023-06-14 11:36 | W.PN.GI.CBS2 ---
Addendum entered and electronically signed by Billy Burciaga MD 06/14/23 15:03:
I saw and examined the patient.
The EMISSIONS INSPECTOR or PA's note was reviewed and I agree with the note.
Comment: Denies complaints. No further bleeding
REC:
Hgb stable
Pt agreeable to colonoscopy. Prep for tomorrow
Hold Eliiquis
Could be hemorrhoidal but last colonoscopy was 8 yrs ago in [place]
Original Note:
Today's Communication / Plan
-
etiology of bleeding related to hemorrhoids, diverticular, ectasia, malignancy
for colonoscopy tomorrow
will give additional miralax now and colyte later today
cont Eliquis hold last dose 06/13
cont clear diet NPO in AM
hbg improved to 11.7 today
Assessment / Plan
-
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
grade 4 hemorrhoids [address] has seen Dr. Torres and Dr. Chester in the past. Patient was supposed to have hemorrhoidal surgery in March 2023 however canceled the surgery. The patient decided to pursue medical management. The patient states that
she had not had a bowel movement for 5 days leading up to her admission. She states that she was given a suppository every day and MiraLAX was increased and the on the fifth day she had a bowel movement. She states that she had rectal bleeding
every day however the night prior to admission she started having increased rectal bleeding with some clots which prompted her evaluation in the ER. Patient initially presents with hemoglobin of 13.0 now down to 10.6 after admission. Patient
with chronic rectal bleeding which she states is little amounts every day with increase day prior to arrival in the ER with clots. CT findings showing air and stool in the colon. Fluid-filled loops of small bowel which are not dilated. Patient is
on Eliquis for history of prior CVAs/left lower extremity DVT.
Impression:
Rectal bleeding, chronic. With recent worsening
Anemia
Bilateral hip pain
Chronic anticoagulation
Large hiatal hernia
hx CVA/DVT on Eliquis
Plan:
etiology of bleeding related to hemorrhoids, diverticular, ectasia, malignancy
for colonoscopy tomorrow
will give additional miralax now and colyte later today
cont Eliquis hold last dose 06/13
cont clear diet NPO in AM
hbg improved to 11.7 today
Subjective
Subjective
Date of Service: June 14, 2023
clear diet no stools some fullness but no bleeding
Objective
Data Reviewed
Laboratory Data:
Laboratory Results
06/14/23 08:17
06/14/23 08:17
Laboratory Results
PT 14.4 Sec (11.4-14.6) 06/12/23 20:37
INR 1.09 06/12/23 20:37
APTT 29.3 Sec (23.4-35.0) 06/12/23 20:37
Magnesium 2.0 mg/dl (1.6-2.3) 06/14/23 08:17
Total Bilirubin 0.4 mg/dl (0.2-1.3) 06/12/23 20:37
AST 23 U/L (14-36) 06/12/23 20:37
ALT 20 U/L (0-35) 06/12/23 20:37
Alkaline Phosphatase 85 U/L (38-126) 06/12/23 20:37
Vital Signs and I&O:
Vital Signs
Temp Pulse Resp BP Pulse Ox
98.8 F 76 20 157/83 93
06/14/23 08:15 06/14/23 08:15 06/14/23 08:15 06/14/23 08:15 06/14/23 08:15
I&O
06/13/23 06/14/23 06/15/23
06:59 06:59 06:59
Intake Total 700 / 700
Balance 700 / 700
Physical Exam
Physical Exam
HEENT: Anicteric and Moist mucous membranes
Cardiology: Normal Sinus Rhythm
Pulmonary: Clear
GI: Soft, Non Distended and Tender (mild upper abdominal tenderness )
Neuro: Non Focal
[2023-06-14 12:00] VITALS: BP 123/69
[2023-06-14] MEDS: MIRALAX 51 GRAMS PO (12:59)
[2023-06-14 16:00] VITALS: BP 115/88
[2023-06-14] MEDS: NULYTELY SOLUTION 4 LITERS PO (16:20)
[2023-06-14] MEDS: MYRBETRIQ EXTENDED RELEASE 25 MG PO (17:35)
[2023-06-14 19:35] VITALS: BP 118/62
--- NOTE | 2023-06-14 20:43 | PTCARENOTE ---
Addendum entered by Izabella Benz RN 06/15/23 05:42:
Since patient did drink a small amount of prep yesterday afternoon, she did have a few liquid BMs. BMs were mostly liquid but burgundy in the toilet and bright red blood was present when wiping patient.
Original Note:
Instructed patient that she will need to drink the 4L Colyte tonight in prep for colonoscopy tomorrow. Patient working on first cup but states she will not be able to complete entire prep as it is too much fluid for her to take in. Dr. Acuna notified
and states that patient will need to complete prep or colonoscopy will be canceled. Informed both patient and daughter. Patient will not complete prep tonight, Dr. Acuna aware.
[2023-06-14] MEDS: CELEXA 50 MG PO (21:33)
[2023-06-14] MEDS: SENOKOT 17.1999999999999993 MG PO (21:33)
[2023-06-14 23:37] VITALS: BP 136/69
[2023-06-15] VITALS (8 sets, daily range): BP systolic 124–152; BP diastolic 68–89; PULSE 91
[2023-06-15 08:20] LABS: Hematocrit 32.3 % (37.0-47.0); Hemoglobin 11.1 g/dL (12.0-16.0); Mean Corp Hgb Conc. 34.4 g/dL (33.0-37.0); Mean Corpuscular Hgb 32.7 pg (27.0-31.0); Mean Corpuscular Volume 95.3 fL (81.0-99.0); Mean Platelet Volume 9.2 fL (7.4-10.4); Platelet Count 221 10^3/uL (130-400); Red Blood Cell Count 3.39 10^6/uL (4.20-5.40); Red Cell Dist. Width 12.1 % (11.5-14.5); White Blood Cell Count 3.5 10^3/uL (4.8-10.8)
[2023-06-15 09:08] LABS: Blood Urea Nitrogen 17 mg/dl (7-17); Calcium 8.8 mg/dl (8.4-10.2); Carbon Dioxide 22 mmol/L (22-30); Chloride 106 mmol/L (98-107); Estimated Creatinine Clearance 32 ml/min; Glucose 79 mg/dl (70-99); Sodium 135 mmol/L (135-145); eGFR 55.55
--- NOTE | 2023-06-15 09:50 | W.PN.GI.CBS2 ---
Addendum entered and electronically signed by Beth Rose Do, MD 06/15/23 11:03:
I saw and examined the patient.
The TAXI DRIVER SUPERVISOR's note was reviewed and I agree with the note.
Comment: Patient continues to decline prep and colonoscopy. Colonoscopy scheduled for today cancelled. She also declined flex sigm. Exam with Vitals stable. NTTP. Labs reviewed and H/H is stable at 11. Last Cscope is >10yrs ago
Impression
- Intermittent chronic BRBPR
ddx includes hemorrhoids, ulcer or polyp
- Chronic constipation
- Anemia
- Large hiatal hernia
- Chronic anticoagulation
- h/o CVA
- H/o DVT
Recommendations
- H/H stable
- Added anusol suppository QHS
- C/w bowel regimen (important to continue upon d/c back to [facility])
- At this juncture colonoscopy cancelled as she refuses prep. Also refuses flex sigm. Risk/benefits discussed.
- GI will update daughter today
At this juncture no new GI rec will sign off please call for questions
She can FU with her OP GI/Dr Torres
Original Note:
Today's Communication / Plan
-
Bowel regimen
Assessment / Plan
-
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
grade [address] has seen Dr[address] Torres and Dr. Chester in the past. Patient was supposed to have hemorrhoidal surgery in March 2023 however canceled the surgery. The patient decided to pursue medical management. The patient states that
she had not had a bowel movement for 5 days leading up to her admission. She states that she was given a suppository every day and MiraLAX was increased and the on the fifth day she had a bowel movement. She states that she had rectal bleeding
every day however the night prior to admission she started having increased rectal bleeding with some clots which prompted her evaluation in the ER. Patient initially presents with hemoglobin of 13.0 now down to 10.6 after admission. Patient
with chronic rectal bleeding which she states is little amounts every day with increase day prior to arrival in the ER with clots. CT findings showing air and stool in the colon. Fluid-filled loops of small bowel which are not dilated. Patient is
on Eliquis for history of prior CVAs/left lower extremity DVT.
Impression:
Rectal bleeding, chronic. With recent worsening.
Anemia
Bilateral hip pain
Chronic anticoagulation
Large hiatal hernia
hx CVA/DVT on Eliquis
Plan:
etiology of bleeding related to hemorrhoids, diverticular, ectasia, malignancy. Patient did not drink prep. Unsure if she wants to proceed with any kind of endoscopic evaluation. Even discussed possible sigmoidoscopy.
Patient does need chronic bowel regimen at least. Continue senna at bedtime, Colace twice daily, MiraLAX twice daily.
Subjective
Subjective
Date of Service: June 15, 2023
Did not prep for colonoscopy. States she only took a cup or 2 of the GoLytely. Hemoglobin currently stable 11.1 down from 11.6. Patient with a large brown bowel movement with some streaks of blood x 3 this morning. Complains of left lower
quadrant tenderness.
Objective
Data Reviewed
Laboratory Data:
Laboratory Results
06/15/23 07:21
06/15/23 07:21
Laboratory Results
PT 14.4 Sec (11.4-14.6) 06/12/23 20:37
INR 1.09 06/12/23 20:37
APTT 29.3 Sec (23.4-35.0) 06/12/23 20:37
Magnesium 2.0 mg/dl (1.6-2.3) 06/14/23 08:17
Total Bilirubin 0.4 mg/dl (0.2-1.3) 06/12/23 20:37
AST 23 U/L (14-36) 06/12/23 20:37
ALT 20 U/L (0-35) 06/12/23 20:37
Alkaline Phosphatase 85 U/L (38-126) 06/12/23 20:37
Vital Signs and I&O:
Vital Signs
Temp Pulse Resp BP Pulse Ox
98.7 F 70 17 152/89 95
06/15/23 08:00 06/15/23 08:00 06/15/23 08:00 06/15/23 08:00 06/15/23 08:00
I&O
06/14/23 06/15/23 06/16/23
06:59 06:59 06:59
Intake Total 700 / 700
Balance 700 / 700
Physical Exam
Physical Exam
HEENT: Anicteric
Cardiology: Normal Sinus Rhythm
Pulmonary: Clear
GI: Soft, Non Distended, Tender (Left lower quadrant) and Normal Bowel Sounds
Neuro: Non Focal
--- NOTE | 2023-06-15 10:25 | CM ---
Addendum entered by Yaima Chino 06/15/23 16:10:
Call placed to [facility] [phone]
Addendum entered by Yaima Chino 06/15/23 14:18:
Chart reviewed and plan is for skilled placement at [facility] [place] when stable, patient will need updated physical therapy notes to submit to insurance for Auth, NPI for [facility] [place] [id number], Dr Jasmine [phone].
Plan; Need update PT/OT for Auth
Original Note:
manager physical reviewed patient's chart and patient is from [facility], per physical therapy recommendation is for skilled placement, referral was sent to [facility] [place] skilled.
Plan; Skilled placement at [facility] [place] when stable.
[2023-06-15] MEDS: LIDOCAINE 4% PATCH 1 PATCH TOPICAL (10:41)
[2023-06-15] MEDS: PROTONIX 40 MG PO (10:42)
[2023-06-15] MEDS: COLACE 100 MG PO ×2 (10:42→22:13)
[2023-06-15] MEDS: TYLENOL 1000 MG PO ×3 (10:42→22:09)
--- NOTE | 2023-06-15 15:37 | W.PN.HOSP.TC ---
Today's Communication/Plan
-
All discussed with the patient
Discussed with the daughter over the phone
Discussed with the md do resident urgent care and the nurse
Plan to transfer and of greater to senior living from her personal assist.
Otherwise pending placement and clearance from GI to restart Eliquis
Assessment / Plan
Assessment / Plan
Physical exam:
General: Pleasant and mildly confused but awake, alert and oriented x3, not in distress and holds appropriate conversation.
HEENT: No active discharge, ecchymosis or bruising, moist lips, tongue and mucous membrane.
Eyes: No discharge or red conjunctiva, no nystagmus, pupils are reactive and equal
Neck:Supple, no JVD no bruit no goiter.
Respiratory: Normal AP contour and diameter, normal chest wall movement, normal respiratory effort, no respiratory distress,
Lungs: Good air entry bilaterally, no wheezing or rhonchi, no rales or crackles
Heart: S1, S2 regular, normal rate, no added sound.
Gastrointestinal: Positive bowel sounds, soft, nontender, no guarding or rigidity or organomegaly
Musculoskeletal: , no chest wall abnormality or tenderness. All joints and extremities have good range of motion, no muscle tenderness or any joint swelling or tenderness.
Extremities: No pitting edema, good peripheral pulses, good range of motion
Skin: Warm and dry, no ulceration, normal color.
Neurological: Awake, alert and oriented x3, mild degree of cognitive dysfunction and decline appreciated, speech clear and comprehensive, good muscle tone, moves extremities.
A/P:� Patient is an 83y F with PMH significant for prior strokes and known hemorrhoids who presents to ED complaining of rectal bleeding.
Rectal Bleeding
Internal / External Hemorrhoids versus diverticular.
�- Seems very likely that hemorrhoids are source of bleeding; though, with complain of abdominal discomfort will rule out other causes.
�- Hgb drop overnight from 13 to 10.6, and now been in 11 and stable at 11. blood consent signed
�- Hold Eliquis (see below).
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
hospital systems administrator Candelaria Givens aware and I spoke to her personally and she is okay for discharge back to the senior living which takes workup from the md do resident urgent care from changing from personal assist to senior living.
�- Patient previously set for hemorrhoid surgery, but states that she was told she was not a candidate.
-Restarting, Eliquis will defer to GI
Pain Syndrome
Spinal Stenosis
�- Patient with known chronic pain issues and spinal stenosis as well, likely MSK as exacerbated by movement
�- trial of K pad
�- Lidoderm +/- tramadol as needed for pain control.
�- PT / OT evaluations.
Questionable UTI
�- UA is contaminated and not useful in diagnosis.
-
�- CT findings noted and appear to be chronic based on prior imaging studies.
�- Patient adamant that she has no symptoms c/w UTI.
�- Will observe off of further abx for now.
�- Follow-up culture data and monitor for any new symptoms.
ASCVD
�- Patient with history of multiple prior CVAs; though, no documented arrhythmia / A-Fib.
�- It is not entirely clear why she is on Eliquis in lieu of more traditional antiplatelet regimen.
�- per Dr. Mcrae's note 03/08/21: '�Patient refused to take aspirin and was fine starting Eliquis.' after acute left occipital infarct and 'Patient considering going back on aspirin and stopping Eliquis.'
- Dr Stephens reached out to PCP 06/13 who clarified that patient has hx right MCA and lacunar infarcts, DVT 2013.� She was on Eliquis from prior MD in [place] given possible intolerance of aspirin and plavix (versus failure?).� Linq monitor has been
discussed in cardiology clinic in past. �
�- On Repatha as she has verified statin intolerance.
Hiatal Hernia / GERD
�- Stable.� Continue PPI.
Renal / Bladder Abnormalities
�- CT scan shows L renal lesion (probably cystic lesion noted on prior studies) and bladder thickening (vascular lesions appreciated on prior studies as well).
�- Neither seems acutely relevant.
�- Follow-up as an outpatient with comparison / additional imaging if desired.
History of LLE DVT
DVT Prophylaxis
�- Prior DVT occurred post-stroke, presumably due to hospitalization / immobility.
�- Holding Eliquis given acute bleeding as noted above.
�- SCDs for now.
Code Status:� Full
Anticipated Discharge: 24 - 48 hours
Subjective/Interval History
-
Date of Service: June 15, 2023
Seen and examined, awake and alert, not in distress, look like colonoscopy was not done and initial information we get that she says she was not able to complete the bowel prep, but later on she told the nurse and GI and according to the daughter
that she does want to have colonoscopy done. Mimi on and off rectal bleed minimum, but hemoglobin is stable, complain of lower abdominal discomfort but no pain, no nausea or vomiting or any hematemesis hematuria.
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
Objective Data
-
Labs:
Laboratory Results
06/15/23
07:21
WBC 3.5 L
Hgb 11.1 L
Hct 32.3 L
Plt Count 221
Sodium 135
Potassium 4.0
Chloride 106
Carbon Dioxide 22
BUN 17
Creatinine 1.0
Glucose 79
Calcium 8.8
Vital Signs:
Vital Signs
Temp Pulse Resp BP Pulse Ox
98.1 F 78 18 128/70 94
06/15/23 15:15 06/15/23 15:15 06/15/23 15:15 06/15/23 15:15 06/15/23 15:15
I&O
06/14/23 06/15/23 06/16/23
07:59 07:59 07:59
Intake Total 700 / 700
Balance 700 / 700
Review of Systems
-
All other systems: Reviewed and negative
--- NOTE | 2023-06-15 15:54 | CM ---
TC to daughter Candelaria, okay to add her brother Khang Jimenez [phone] as a contact as she is out of town.
Admissions contacted and added additional camera person.
[2023-06-15] MEDS: MYRBETRIQ EXTENDED RELEASE 25 MG PO (17:05)
[2023-06-15] MEDS: TUMS 1 TABLET PO (18:23)
[2023-06-15] MEDS: CELEXA 50 MG PO (22:09)
[2023-06-15] MEDS: MIRALAX 17 GRAMS PO (22:09)
[2023-06-15] MEDS: SENOKOT 17.1999999999999993 MG PO (22:09)
[2023-06-15] MEDS: ANUSOL HC 25 MG RECTAL (22:10)
[2023-06-15] MEDS: ULTRAM 25 MG PO (22:10)
[2023-06-16 03:45] VITALS: BP 132/71
[2023-06-16 07:00] VITALS: BP 156/81
[2023-06-16] MEDS: COLACE 100 MG PO (09:33)
[2023-06-16] MEDS: TYLENOL 1000 MG PO ×3 (09:34→20:24)
[2023-06-16] MEDS: PROTONIX 40 MG PO (09:34)
[2023-06-16] MEDS: MIRALAX 17 GRAMS PO ×2 (09:35→20:24)
[2023-06-16] MEDS: LIDOCAINE 4% PATCH TOPICAL (09:35)
[2023-06-16 11:00] VITALS: BP 148/82
--- NOTE | 2023-06-16 13:43 | CM ---
Addendum entered by Stephany Beard 06/16/23 13:59:
clinical information faxed to , attempted to call automated system but insurance information not accepted. CM await call back.
Original Note:
Patient accepted for [facility] will need auth from [facility] . Awaiting response.
--- NOTE | 2023-06-16 14:13 | W.PN.HOSP.TC ---
Today's Communication/Plan
-
if no bleeding, hgb stable - casn trial eliquis louann if ok by pt
pending placement
Assessment / Plan
Assessment / Plan
Physical exam:
General: Pleasant and mildly confused but awake, alert and oriented x3, not in distress and holds appropriate conversation.
HEENT: No active discharge, ecchymosis or bruising, moist lips, tongue and mucous membrane.
Eyes: No discharge or red conjunctiva, no nystagmus, pupils are reactive and equal
Neck:Supple, no JVD no bruit no goiter.
Respiratory: Normal AP contour and diameter, normal chest wall movement, normal respiratory effort, no respiratory distress,
Lungs: Good air entry bilaterally, no wheezing or rhonchi, no rales or crackles
Heart: S1, S2 regular, normal rate, no added sound.
Gastrointestinal: Positive bowel sounds, soft, nontender, no guarding or rigidity or organomegaly
Musculoskeletal: , no chest wall abnormality or tenderness. All joints and extremities have good range of motion, no muscle tenderness or any joint swelling or tenderness.
Extremities: No pitting edema, good peripheral pulses, good range of motion
Skin: Warm and dry, no ulceration, normal color.
Neurological: Awake, alert and oriented x3, mild degree of cognitive dysfunction and decline appreciated, speech clear and comprehensive, good muscle tone, moves extremities.
A/P:� Patient is an 83y F with PMH significant for prior strokes and known hemorrhoids who presents to ED complaining of rectal bleeding.
Rectal Bleeding
Internal / External Hemorrhoids versus diverticular.
�- Seems very likely that hemorrhoids are source of bleeding; though, with complain of abdominal discomfort will rule out other causes.
�- Hgb drop overnight from 13 to 10.6, and now been in 11 and stable at 11. blood consent signed
�- Hold Eliquis (see below).
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
hospital administrator pesticide Candelaria Givens aware and I spoke to her personally and she is okay for discharge back to the half-way which takes workup from the cattle care worker from changing from personal assist to half-way.
�- Patient previously set for hemorrhoid surgery, but states that she was told she was not a candidate.
-Restarting, Eliquis will defer to GI
Pain Syndrome
Spinal Stenosis
�- Patient with known chronic pain issues and spinal stenosis as well, likely MSK as exacerbated by movement
�- trial of K pad
�- Lidoderm +/- tramadol as needed for pain control.
�- PT / OT evaluations.
Questionable UTI
�- UA is contaminated and not useful in diagnosis.
�- CT findings noted and appear to be chronic based on prior imaging studies.
�- Patient adamant that she has no symptoms c/w UTI.
�- Will observe off of further abx for now.
�- Follow-up culture data and monitor for any new symptoms.
ASCVD
�- Patient with history of multiple prior CVAs; though, no documented arrhythmia / A-Fib.
�- It is not entirely clear why she is on Eliquis in lieu of more traditional antiplatelet regimen.
�- per Dr. Mcrae's note 03/08/21: '�Patient refused to take aspirin and was fine starting Eliquis.' after acute left occipital infarct and 'Patient considering going back on aspirin and stopping Eliquis.'
- Dr Stephens reached out to PCP 06/13 who clarified that patient has hx right MCA and lacunar infarcts, DVT 2013.� She was on Eliquis from prior MD in [place] given possible intolerance of aspirin and plavix (versus failure?).� Linq monitor has been
discussed in cardiology clinic in past. �
�- On Repatha as she has verified statin intolerance.
Hiatal Hernia / GERD
�- Stable.� Continue PPI.
Renal / Bladder Abnormalities
�- CT scan shows L renal lesion (probably cystic lesion noted on prior studies) and bladder thickening (vascular lesions appreciated on prior studies as well).
�- Neither seems acutely relevant.
�- Follow-up as an outpatient with comparison / additional imaging if desired.
History of LLE DVT
DVT Prophylaxis
�- Prior DVT occurred post-stroke, presumably due to hospitalization / immobility.
�- Holding Eliquis given acute bleeding as noted above, deferring to gi
�- SCDs for now.
Code Status:� Full
Anticipated Discharge: Today
Subjective/Interval History
-
Date of Service: June 16, 2023
no acute events overnight
Objective Data
-
Vital Signs:
Vital Signs
Temp Pulse Resp BP Pulse Ox
98.2 F 69 18 148/82 95
06/16/23 11:00 06/16/23 11:00 06/16/23 11:00 06/16/23 11:00 06/16/23 11:00
I&O
06/15/23 06/16/23 06/17/23
06:59 06:59 06:59
Intake Total 540 / 540
Balance 540 / 540
Review of Systems
-
History Source: Patient
All other systems: Not reviewed unless documented
Data Reviewed
-
CT Scan: Image personally visualized and interpreted and Report Reviewed by me
Labs: Labs Reviewed by me
[2023-06-16 15:00] VITALS: BP 139/73
--- NOTE | 2023-06-16 15:20 | PTCARENOTE ---
Assumed care of pt from previous nurse. Pt denies pain. pt refusing SCD's despite education. MD made aware. Pt call montes is within reach, pt rings akshat. will cont to monitor.
[2023-06-16] MEDS: ULTRAM 25 MG PO (16:22)
[2023-06-16] MEDS: MYRBETRIQ EXTENDED RELEASE 25 MG PO (18:15)
[2023-06-16] MEDS: ANUSOL HC 25 MG RECTAL (20:23)
[2023-06-16] MEDS: CELEXA 50 MG PO (20:23)
[2023-06-16] MEDS: COLACE PO (20:25)
[2023-06-16] MEDS: SENOKOT PO (20:25)
[2023-06-16 23:55] VITALS: BP 127/72
[2023-06-17] MEDS: ULTRAM 25 MG PO ×2 (02:55→23:26)
[2023-06-17 07:26] LABS: Hematocrit 34.9 % (37.0-47.0); Hemoglobin 11.8 g/dL (12.0-16.0); Mean Corp Hgb Conc. 33.8 g/dL (33.0-37.0); Mean Corpuscular Hgb 32.6 pg (27.0-31.0); Mean Corpuscular Volume 96.4 fL (81.0-99.0); Mean Platelet Volume 9.2 fL (7.4-10.4); Platelet Count 281 10^3/uL (130-400); Red Blood Cell Count 3.62 10^6/uL (4.20-5.40); White Blood Cell Count 5.2 10^3/uL (4.8-10.8)
[2023-06-17] MEDS: LIDOCAINE 4% PATCH 1 PATCH TOPICAL (07:46)
[2023-06-17] MEDS: PROTONIX 40 MG PO (07:46)
[2023-06-17] MEDS: TYLENOL 1000 MG PO ×3 (07:46→23:24)
[2023-06-17] MEDS: COLACE 100 MG PO ×2 (07:47→19:42)
[2023-06-17] MEDS: MIRALAX 17 GRAMS PO ×2 (07:47→19:42)
[2023-06-17 07:55] VITALS: BP 151/83
[2023-06-17 07:58] LABS: Blood Urea Nitrogen 17 mg/dl (7-17); Calcium 9.1 mg/dl (8.4-10.2); Carbon Dioxide 22 mmol/L (22-30); Chloride 107 mmol/L (98-107); Estimated Creatinine Clearance 32 ml/min; Glucose 109 mg/dl (70-99); Sodium 137 mmol/L (135-145); eGFR 55.55
--- NOTE | 2023-06-17 13:47 | W.PN.HOSP.TC ---
Today's Communication/Plan
-
Trial back Eliquis
DC ready, CM aware
Assessment / Plan
Assessment / Plan
Physical exam:
General: Pleasant and mildly confused but awake, alert and oriented x3, not in distress and holds appropriate conversation.
HEENT: No active discharge, ecchymosis or bruising, moist lips, tongue and mucous membrane.
Eyes: No discharge or red conjunctiva, no nystagmus, pupils are reactive and equal
Neck:Supple, no JVD no bruit no goiter.
Respiratory: Normal AP contour and diameter, normal chest wall movement, normal respiratory effort, no respiratory distress,
Lungs: Good air entry bilaterally, no wheezing or rhonchi, no rales or crackles
Heart: S1, S2 regular, normal rate, no added sound.
Gastrointestinal: Positive bowel sounds, soft, nontender, no guarding or rigidity or organomegaly
Musculoskeletal: , no chest wall abnormality or tenderness. All joints and extremities have good range of motion, no muscle tenderness or any joint swelling or tenderness.
Extremities: No pitting edema, good peripheral pulses, good range of motion
Skin: Warm and dry, no ulceration, normal color.
Neurological: Awake, alert and oriented x3, mild degree of cognitive dysfunction and decline appreciated, speech clear and comprehensive, good muscle tone, moves extremities.
A/P:� Patient is an 83y F with PMH significant for prior strokes and known hemorrhoids who presents to ED complaining of rectal bleeding.
Rectal Bleeding
Internal / External Hemorrhoids versus diverticular.
�- Seems very likely that hemorrhoids are source of bleeding; though, with complain of abdominal discomfort will rule out other causes.
�- Hgb drop overnight from 13 to 10.6, and now been in 11 and stable at 11. blood consent signed
�- Hold Eliquis (see below).
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
hospital route process administrator Candelaria Givens aware and I spoke to her personally and she is okay for discharge back to the residential which takes workup from the family day carer from changing from personal assist to residential.
�- Patient previously set for hemorrhoid surgery, but states that she was told she was not a candidate.
-Restarting, Eliquis and monitor - understands risks since there was no intervention/C-Scope performed
Pain Syndrome
Spinal Stenosis
�- Patient with known chronic pain issues and spinal stenosis as well, likely MSK as exacerbated by movement
�- trial of K pad
�- Lidoderm +/- tramadol as needed for pain control.
�- PT / OT evaluations.
CT Findings of possible Cystitis
�- UA is contaminated and not useful in diagnosis.
�- CT findings noted and appear to be chronic based on prior imaging studies.
�- Patient adamant that she has no symptoms c/w UTI.
�- Will observe off of further abx for now.
�- Follow-up culture data and monitor for any new symptoms.
ASCVD
�- Patient with history of multiple prior CVAs; though, no documented arrhythmia / A-Fib.
�- It is not entirely clear why she is on Eliquis in lieu of more traditional antiplatelet regimen.
�- per Dr. Mcrae's note 03/08/21: '�Patient refused to take aspirin and was fine starting Eliquis.' after acute left occipital infarct and 'Patient considering going back on aspirin and stopping Eliquis.'
- Dr Stephens reached out to PCP 06/13 who clarified that patient has hx right MCA and lacunar infarcts, DVT 2013.� She was on Eliquis from prior MD in [place] given possible intolerance of aspirin and plavix (versus failure?).� Linq monitor has been
discussed in cardiology clinic in past. �
�- On Repatha as she has verified statin intolerance.
Hiatal Hernia / GERD
�- Stable.� Continue PPI.
Renal / Bladder Abnormalities
�- CT scan shows L renal lesion (probably cystic lesion noted on prior studies) and bladder thickening (vascular lesions appreciated on prior studies as well).
�- Neither seems acutely relevant.
�- Follow-up as an outpatient with comparison / additional imaging if desired.
History of LLE DVT
DVT Prophylaxis
�- Prior DVT occurred post-stroke, presumably due to hospitalization / immobility.
�- Trial Eliquis again
Code Status:� Full
Medically Clear - CM aware
Anticipated Discharge: Within 24 hours
Subjective/Interval History
-
Date of Service: June 17, 2023
no bleeding, resume eliquis and monitor
Objective Data
-
Labs:
Laboratory Results
06/17/23
06:58
WBC 5.2
Hgb 11.8 L
Hct 34.9 L
Plt Count 281 D
Sodium 137
Potassium 4.0
Chloride 107
Carbon Dioxide 22
BUN 17
Creatinine 1.0
Glucose 109 H
Calcium 9.1
Vital Signs:
Vital Signs
Temp Pulse Resp BP Pulse Ox
97.6 F 66 12 151/83 98
06/17/23 07:55 06/17/23 07:55 06/17/23 07:55 06/17/23 07:55 06/17/23 07:55
I&O
06/16/23 06/17/23 06/18/23
06:59 06:59 06:59
Intake Total 540 / 540 480 / 480
Balance 540 / 540 480 / 480
Review of Systems
-
History Source: Patient
All other systems: Not reviewed unless documented
Physical Exam
-
General: No Apparent Distress
HEENT: Moist Mucous Membranes
Respiratory: Clear to Auscultation
Cardiac: Regular Rhythm and S1/S2
GI: Soft and Nontender
Neuro: AO x 3
Psych: Calm; Negative Confused
Data Reviewed
-
CT Scan: Image personally visualized and interpreted and Report Reviewed by me
Labs: Labs Reviewed by me
[2023-06-17 15:55] VITALS: BP 148/85
[2023-06-17] MEDS: MYRBETRIQ EXTENDED RELEASE 25 MG PO (16:35)
[2023-06-17] MEDS: ELIQUIS 2.5 MG PO (19:42)
[2023-06-17] MEDS: SENOKOT 17.1999999999999993 MG PO (23:24)
[2023-06-17] MEDS: ANUSOL HC 25 MG RECTAL (23:24)
[2023-06-17] MEDS: CELEXA 50 MG PO (23:24)
[2023-06-17 23:27] VITALS: BP 132/72
[2023-06-18 07:37] LABS: Hematocrit 35.9 % (37.0-47.0); Hemoglobin 12.4 g/dL (12.0-16.0); Mean Corp Hgb Conc. 34.5 g/dL (33.0-37.0); Mean Corpuscular Volume 95.5 fL (81.0-99.0); Mean Platelet Volume 9.1 fL (7.4-10.4); Platelet Count 291 10^3/uL (130-400); Red Blood Cell Count 3.76 10^6/uL (4.20-5.40)
[2023-06-18 07:55] VITALS: BP 151/78
[2023-06-18] MEDS: MIRALAX 17 GRAMS PO ×2 (08:05→20:07)
[2023-06-18] MEDS: ELIQUIS 2.5 MG PO ×2 (08:06→20:07)
[2023-06-18] MEDS: TYLENOL 1000 MG PO ×3 (08:06→22:06)
[2023-06-18] MEDS: PROTONIX 40 MG PO (08:07)
[2023-06-18] MEDS: COLACE 100 MG PO ×2 (08:07→20:07)
[2023-06-18] MEDS: LIDOCAINE 4% PATCH 1 PATCH TOPICAL (08:10)
--- NOTE | 2023-06-18 10:11 | W.DS.TRANS ---
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
-
Discharge Instructions:
Discharge Diagnosis/Procedures Internal/external hemorrhoids with rectal
bleeding
CT scan with questionable left renal lesion
cystic by prior studies and bladder thickening.
History of left lower extremity DVT/placed back
on Eliquis
Diet As tolerated
Activity As tolerated
Driving Restrictions As prior to admission
Instructions:
Stand-Alone Forms:
Changes to Home Medications: Yes
Discharge Medications:
DC Medications w/original date entered in [employer]
apixaban 2.5 mg tablet (Eliquis) 2.5 mg PO BID #60 tabs 03/08/21
acetaminophen 325 mg tablet 650 mg PO BIDPRN PRN mild pain 11/19/22
bisacodyl 10 mg rectal suppository 10 mg HI DAILY PRN constipation 11/19/22
citalopram 10 mg tablet 10 mg PO HS Mental Health 11/19/22
evolocumab 140 mg/mL subcutaneous pen injector (Repatha SureClick) 140 mg SC MONTHLY@2200 High Cholesterol 11/19/22
lorazepam 0.5 mg tablet 0.5 mg PO [id number] PRN Anxiety 11/19/22
olopatadine 0.2 % eye drops 1 drp BOTH EYES DAILYPRN PRN conjunctivitis 11/19/22
polyethylene glycol 3350 17 gram/dose oral powder (Miralax) 25.5 g PO DAILY Constipation 11/19/22
tramadol 50 mg tablet 50 mg PO DAILY PRN mild pain 11/19/22
acetaminophen 500 mg tablet 1,000 mg PO Q8HPRN PRN mild pain 04/16/23
camphor-menthol 0.2 %-3.5 % topical gel 1 applic topical QIDPRN PRN mild pain 04/16/23
citalopram 40 mg tablet 40 mg PO HS Mental Health 04/16/23
docusate sodium 100 mg capsule 100 mg PO HS Constipation 04/16/23
mirabegron 25 mg tablet,extended release 24 hr (Myrbetriq) 25 mg PO QPM Urinary Issue 04/16/23
pantoprazole 40 mg tablet,delayed release (Protonix) 40 mg PO DAILY Gastrointestinal Issue 04/16/23
psyllium 1 packet PO DAILY Constipation 04/16/23
Benadryl Itch Stopping Cream 1 applic topical Q8HPRN PRN skin rash 06/12/23
camphor-methyl salicylate-menthol topical patch 1 patch topical [id number] PRN apply to back and/or knees 06/12/23
cocoa butter-shark liver oil rectal suppository 1 supp HI DAILYPRN PRN pruritis 06/12/23
cocoa butter-zinc oxide 76 %-10 % rectal suppository (Calmol-4) 1 supp HI HS Skin Issues 06/12/23
fluticasone propionate 50 mcg/actuation nasal spray,suspension 2 spray intranasal DAILY PRN allergic rhinitis 06/12/23
food supplemt, lactose-reduced 0.04 gram-1 kcal/mL oral liquid (Boost) 1 ea PO DAILY nutrition 06/12/23
zoadbxvgbuyo-omjkmccz-dnbrto tablet 1 tab PO DAILY Supplement 06/12/23
nystatin 100,000 unit/gram topical powder 1 applic topical BID PRN vulvovaginal candidiasis/yeast infection 06/12/23
phenyleph-shark liver mjq-krdxro-gpv rectal cream 1 applic topical DAILYPRN PRN inflamed hemorrhoids 06/12/23
sennosides 8.6 mg tablet (senna) 8.6 mg PO HS PRN constipation 06/12/23
white petrolatum 51.1 % topical ointment (Balmex (petrolatum)) 1 applic topical DAILY PRN skin irritation 06/12/23
zinc oxide 13 % topical cream (Desitin Daily Defense) 1 applic topical TIDPRN PRN rectal area pain 06/12/23
hydrocortisone acetate 25 mg rectal suppository 25 mg HI HS #10 ea 06/18/23
lidocaine 4 % topical patch 1 patch topical DAILY #10 ea 06/18/23
polyethylene glycol 3350 17 gram oral powder packet (HealthyLax) 17 g PO BID #10 ea 06/18/23
Home Medication Changes
hydrocortisone acetate 25 mg rectal suppository 25 mg HI HS #06/18/23
lidocaine 4 % topical patch 1 patch topical DAILY #06/18/23
polyethylene glycol 3350 17 gram oral powder packet (HealthyLax) 17 g PO BID #06/18/23
Pending Results: No
Total time spent discharging patient (in min): 38
--- NOTE | 2023-06-18 10:25 | CM ---
on site manager reviewed patient's chart and reached out to patient's insurance and spoke with Zohaib [phone], and per Zohaib manager case will need to fax PT/OT update notes to [employer] . on site manager spoke with
physical therapy and both physical therapy and occupational therapy will see patient today.
Plan; Skilled placement at [facility] pending Auth, patient's daughter Candelaria and physician updated this am.
--- NOTE | 2023-06-18 10:28 | W.PN.UPDATE ---
Update Note
Progress Note Update
Patient seen and examined on this date
Patient is stable for discharge to rehab facility awaiting repeat PT assessment update and authorization per case management
She has had no further rectal bleeding after being started back on Eliquis remains weak on her left side and requires assistance
H&H and hemodynamics remained stable
[2023-06-18 10:48] VITALS: BP 141/86; PULSE 70; O2SAT 94
--- NOTE | 2023-06-18 14:10 | PTCARENOTE ---
Patient received awake and alert , able to make needs known . Out of bed to chair with 1 assist, gait slow and steady. Appetite good , denies any pain or discomfort. In chair with call montes .
[2023-06-18] MEDS: MYRBETRIQ EXTENDED RELEASE 25 MG PO (15:49)
[2023-06-18 16:00] VITALS: BP 132/81
[2023-06-18] MEDS: ANUSOL HC 25 MG RECTAL (22:05)
[2023-06-18] MEDS: SENOKOT 17.1999999999999993 MG PO (22:05)
[2023-06-18] MEDS: CELEXA 50 MG PO (22:05)
[2023-06-18] MEDS: ULTRAM 25 MG PO (22:06)
[2023-06-19] VITALS: BP 121/72
[2023-06-19 07:00] VITALS: BP 141/75
[2023-06-19] MEDS: LIDOCAINE 4% PATCH 1 PATCH TOPICAL (08:24)
[2023-06-19] MEDS: MIRALAX 17 GRAMS PO (08:24)
[2023-06-19] MEDS: TYLENOL 1000 MG PO ×2 (08:25→15:06)
[2023-06-19] MEDS: PROTONIX 40 MG PO (08:26)
[2023-06-19] MEDS: COLACE 100 MG PO (08:26)
[2023-06-19] MEDS: ELIQUIS 2.5 MG PO (08:26)
--- NOTE | 2023-06-19 10:02 | W.PN.UPDATE ---
Update Note
Progress Note Update
Again seen on morning rounds and patient remained stable without evidence of active bleed tolerating diet
On review of PT and OT assessment she continues to require physical assistance with transfers and ambulation limited by generalized weakness in left upper and lower extremity and parents and would benefit from skilled rehab
Awaiting insurance authorization for subacute nursing facility
--- NOTE | 2023-06-19 10:27 | CM ---
Addendum entered by Yaima Chino 06/19/23 11:58:
education and training manager spoke with patient's property loss insurance claim adjuster Vanessa and patient was approved for 7 days skilled 06/18 to 06/25, Auth [id number], patient will go by w/c van with a 4pm sheepskin pickler.
[facility]
Report [phone]

Original Note:
education and training manager is waiting on Auth from insurance, case picker will reach out to insurance this morning.
Plan; Waiting on Auth for skilled placement.
--- NOTE | 2023-07-05 12:00 | W.DCSUMMARY ---
Discharge Summary
Discharge Data
Date of Admission: 06/13/23
Date of Discharge: 06/19/23
Total time spent discharging patient (in min): 2
-
Pending Results: No
Hospital Course
A/P:� Patient is an 83y F with PMH significant for prior strokes and known hemorrhoids who presents to ED complaining of rectal bleeding.
Rectal Bleeding
Internal / External Hemorrhoids versus diverticular.
�- Seems very likely that hemorrhoids are source of bleeding; though, with complain of abdominal discomfort will rule out other causes.
�- Hgb drop overnight from 13 to 10.6, and now been in 11 and stable at 11. � blood consent signed
�- Hold Eliquis (see below).
�-Colonoscopy was not done as patient did not do the bowel prep, and show so she can able to drink and then later on last turner to be she does not want any interventional colonoscopy with family especially the daughter who is one of the [facility]
inside sales administrator Candelaria Givens aware and Dr. Lopez spoke to her personally and she is okay for discharge back to the assisted which takes workup from the healthcare sales representative from changing from personal assist to assisted.
�- Patient previously set for hemorrhoid surgery, but states that she was told she was not a candidate.
�-Restarting, Eliquis and monitor - understands risks since there was no intervention/C-Scope performed
Again seen on morning rounds and patient remained stable without evidence of active bleed tolerating diet
On review of PT and OT assessment she continues to require physical assistance with transfers and ambulation limited by generalized weakness in left upper and lower extremity and parents and would benefit from skilled rehab
Awaiting insurance authorization for subacute nursing facility
Discharge Plan
-
Patient Disposition: Intermediate/SNF
Discharge Diagnosis/Procedures: Internal/external hemorrhoids with rectal bleeding
CT scan with questionable left renal lesion cystic by prior studies and bladder thickening.
History of left lower extremity DVT/placed back on Eliquis
Diet: As tolerated
Activity: As tolerated
Driving Restrictions: As prior to admission
Referrals:
Dorothea Asencio CRNP [Family Provider] - in less than 1 week
Prescriptions:
New
lidocaine 4 % Adhesive Patch,Medicated
1 patch topical DAILY Qty: 10 0RF
polyethylene glycol 3350 [HealthyLax] 17 gram Powder In Packet
17 g PO BID Qty: 10 0RF
hydrocortisone acetate 25 mg Suppository
25 mg VA HS Qty: 10 0RF
Continued
bisacodyl 10 mg Suppository
10 mg VA DAILY PRN (Reason: constipation)
olopatadine 0.2 % Drops
1 drp BOTH EYES DAILY PRN (Reason: conjunctivitis)
Repatha SureClick 140 mg/mL Pen Injector
140 mg SC MONTHLY
Rx Instructions:
06/12/2023, administer on the 1st of every month.
acetaminophen 325 MG tablet
650 mg PO Q4H PRN (Reason: mild pain/fever>100)
citalopram 10 MG tablet
10 mg PO HS
Rx Instructions:
take w/ 40mg = 50mg
citalopram 40 mg Tablet
40 mg PO HS
Rx Instructions:
take w/ 10mg = 50mg
docusate sodium 100 MG capsule
100 mg PO HS
pantoprazole [Protonix] 40 mg Tablet,Delayed Release (Dr/Ec)
40 mg PO DAILY
Myrbetriq 25 mg Tablet Extended Release 24 Hr
25 mg PO QPM
sennosides [senna] 8.6 mg Tablet
8.6 mg PO HS PRN (Reason: constipation)
diphenhydramine-zinc acetate 1-0.1 % Cream
1 applic TOPICAL Q8H PRN (Reason: itching) Qty: 0
fluticasone propionate 50 mcg/actuation Bypro,Suspension
2 spray INTRANASAL DAILY PRN (Reason: allergic rhinitis)
Eliquis 2.5 MG tablet
2.5 mg PO BID Qty: 60 0RF
No Action
magnesium hydroxide [Milk of Magnesia] 400 mg/5 mL Suspension
30 ml PO DAILY PRN (Reason: if no bm x 4 days)
Fleet Enema 19-7 gram/118 mL Enema
118 ml VA DAILY PRN (Reason: constipation)
naloxone [Narcan] 4 mg/actuation Bypro,Non-Aerosol
4 mg INTRANASAL Q3M PRN (Reason: opioid suspected overdose)
ciprofloxacin HCl 250 mg Tablet
250 mg PO BID Qty: 0 0RF
Rx Instructions:
Last dose will be July 01, 2023.
loratadine 10 mg Tablet
10 mg PO DAILY Qty: 0 0RF
Eliquis 2.5 mg Tablet
2.5 mg PO BID Qty: 0 0RF
Discharge Orders:
Discharge Patient (As Directed); Ordered 06/19/23
Ordered By: Joe Riggs
Discharge Date and Time
Discharge Date/Time: 06/19/23 16:17
== END 2023-06-19 16:17 | DRG 813 ==
LOC: 4 WEST ACU 03:48
PROVIDERS: Internal Medicine; Student in an Organized Health Care Education/Training Program; ADMITTING PHYSICIAN Hospitalist; ATTENDING PHYSICIAN Internal Medicine; CONSULT PHYSICIAN Specialist; EMERGENCY PHYSICIAN Emergency Medicine; FAMILY PHYSICIAN Nurse Practitioner Adult Health
DX: D68.32 Hemorrhagic disorder due to extrinsic circulating anticoagulants (principal); K62.5 Hemorrhage of anus and rectum; D62 Acute posthemorrhagic anemia; K64.3 Fourth degree hemorrhoids; Z86.73 Personal history of transient ischemic attack (TIA), and cerebral infarction without residual deficits; E78.00 Pure hypercholesterolemia, unspecified; I25.10 Atherosclerotic heart disease of native coronary artery without angina pectoris; Z86.718 Personal history of other venous thrombosis and embolism; K21.9 Gastro-esophageal reflux disease without esophagitis; Z79.01 Long term (current) use of anticoagulants; I10 Essential (primary) hypertension; D64.9 Anemia, unspecified; K59.09 Other constipation; K44.9 Diaphragmatic hernia without obstruction or gangrene
CPT/HCPCS: 51701; 74177; 80048; 80053; 81003; 81015; 83735; 85014; 85018; 85025; 85027; 85610; 85730; 86850; 86900; 86901; 87077; 87086; 87186; 93005; 96361; 96374; 96375; 96376; 97116; 97163; 97530; 97535; 99285; Q9967

== ENCOUNTER → 2023-07-18 12:09 | Outpatient (REF) | payer OTHER, SELFPAY ==
[2023-07-18 12:27] LABS: % Basophils 0.4 % (0-2); % Eosinophils 1.5 % (0-6); % Immature Granulocytes 0.4 % (0-0.5); % Lymphocytes 9.4 % (20.5-51.1); % Monocytes 13.5 % (1.7-9.3); % Neutrophils 74.8 % (42.2-75.2); Absolute Eosinophils 0.1 10^3/uL (0-0.7); Absolute Lymphocytes 0.8 10^3/uL (1.2-3.4); Absolute Monocytes 1.1 10^3/uL (0.1-0.6); Hematocrit 33.2 % (37.0-47.0); Hemoglobin 11.1 g/dL (12.0-16.0); Mean Corp Hgb Conc. 33.4 g/dL (33.0-37.0); Mean Corpuscular Hgb 32.6 pg (27.0-31.0); Mean Corpuscular Volume 97.4 fL (81.0-99.0); Mean Platelet Volume 9.7 fL (7.4-10.4); Nucleated Red Blood Cells % 0 %; Platelet Count 287 10^3/uL (130-400); Red Blood Cell Count 3.41 10^6/uL (4.20-5.40); Red Cell Dist. Width 12.6 % (11.5-14.5); White Blood Cell Count 8.1 10^3/uL (4.8-10.8)
[2023-07-18 12:52] LABS: ALT (SGPT) < 10 U/L (0-35); AST (SGOT) 16 U/L (14-36); Alkaline Phosphatase 81 U/L (38-126); Blood Urea Nitrogen 23 mg/dl (7-17); Calcium 8.8 mg/dl (8.4-10.2); Carbon Dioxide 23 mmol/L (22-30); Chloride 104 mmol/L (98-107); Glucose 103 mg/dl (70-99); Iron 34 ug/dl (37-170); Potassium 4.3 mmol/L (3.5-5.1); Sodium 134 mmol/L (135-145); Total Bilirubin 0.5 mg/dl (0.2-1.3); Total Protein 5.6 g/dl (6.3-8.2); eGFR 44.64
[2023-07-18 13:01] LABS: Percent Saturation 16 % (20-50); Total Iron Binding Capacity 207 ug/dl (265-497)
== END ==
LOC: OLABPV 12:09
PROVIDERS: ATTENDING PHYSICIAN Nurse Practitioner Adult Health
DX: I10 Essential (primary) hypertension (principal); Z86.73 Personal history of transient ischemic attack (TIA), and cerebral infarction without residual deficits
CPT/HCPCS: 36415; 80053; 83540; 83550; 85025

== ENCOUNTER → 2023-10-12 12:04 | Outpatient (REF) | payer OTHER, SELFPAY ==
[2023-10-12 12:45] LABS: % Basophils 0.4 % (0-2); % Eosinophils 1.6 % (0-6); % Immature Granulocytes 0.3 % (0-0.5); % Lymphocytes 9.1 % (20.5-51.1); % Monocytes 7.7 % (1.7-9.3); % Neutrophils 80.9 % (42.2-75.2); Absolute Eosinophils 0.2 10^3/uL (0-0.7); Absolute Lymphocytes 0.9 10^3/uL (1.2-3.4); Absolute Monocytes 0.8 10^3/uL (0.1-0.6); Absolute Neutrophils 8.4 10^3/uL (1.4-6.5); Hematocrit 40.6 % (37.0-47.0); Hemoglobin 13.3 g/dL (12.0-16.0); Mean Corp Hgb Conc. 32.8 g/dL (33.0-37.0); Mean Corpuscular Hgb 32.4 pg (27.0-31.0); Mean Corpuscular Volume 98.8 fL (81.0-99.0); Mean Platelet Volume 9.7 fL (7.4-10.4); Nucleated Red Blood Cells % 0 %; Platelet Count 341 10^3/uL (130-400); Red Blood Cell Count 4.11 10^6/uL (4.20-5.40); Red Cell Dist. Width 13.3 % (11.5-14.5); White Blood Cell Count 10.4 10^3/uL (4.8-10.8)
[2023-10-12 12:48] LABS: ALT (SGPT) 19 U/L (0-35); AST (SGOT) 28 U/L (14-36); Albumin 4.3 g/dl (3.5-5.0); Alkaline Phosphatase 75 U/L (38-126); Blood Urea Nitrogen 36 mg/dl (7-17); Calcium 10.1 mg/dl (8.4-10.2); Carbon Dioxide 19 mmol/L (22-30); Chloride 110 mmol/L (98-107); Glucose 78 mg/dl (70-99); Iron 78 ug/dl (37-170); Potassium 4.9 mmol/L (3.5-5.1); Sodium 141 mmol/L (135-145); Total Bilirubin 0.4 mg/dl (0.2-1.3); Total Protein 7.2 g/dl (6.3-8.2); eGFR 49.55
[2023-10-12 12:58] LABS: Percent Saturation 29 % (20-50); Total Iron Binding Capacity 261 ug/dl (265-497)
== END ==
LOC: OLABLV 12:04
PROVIDERS: ATTENDING PHYSICIAN Nurse Practitioner Adult Health
DX: E78.5 Hyperlipidemia, unspecified (principal); I10 Essential (primary) hypertension; D50.9 Iron deficiency anemia, unspecified
CPT/HCPCS: 36415; 80053; 82728; 83540; 83550; 85025

== ENCOUNTER → 2023-10-17 15:32 | Outpatient (REF) | payer OTHER, SELFPAY ==
[2023-10-17 16:59] LABS: % Basophils 0.6 % (0-2); % Eosinophils 4.2 % (0-6); % Immature Granulocytes 0.2 % (0-0.5); % Lymphocytes 18.9 % (20.5-51.1); % Monocytes 13.3 % (1.7-9.3); % Neutrophils 62.8 % (42.2-75.2); Absolute Eosinophils 0.2 10^3/uL (0-0.7); Absolute Monocytes 0.7 10^3/uL (0.1-0.6); Absolute Neutrophils 3.3 10^3/uL (1.4-6.5); Hematocrit 32.4 % (37.0-47.0); Hemoglobin 10.5 g/dL (12.0-16.0); Mean Corp Hgb Conc. 32.4 g/dL (33.0-37.0); Mean Corpuscular Hgb 32.1 pg (27.0-31.0); Mean Corpuscular Volume 99.1 fL (81.0-99.0); Mean Platelet Volume 9.6 fL (7.4-10.4); Nucleated Red Blood Cells % 0 %; Platelet Count 297 10^3/uL (130-400); Red Blood Cell Count 3.27 10^6/uL (4.20-5.40); Red Cell Dist. Width 13.7 % (11.5-14.5); White Blood Cell Count 5.2 10^3/uL (4.8-10.8)
[2023-10-17 17:22] LABS: ALT (SGPT) 20 U/L (0-35); AST (SGOT) 21 U/L (14-36); Albumin 3.3 g/dl (3.5-5.0); Alkaline Phosphatase 64 U/L (38-126); Blood Urea Nitrogen 39 mg/dl (7-17); Calcium 9.2 mg/dl (8.4-10.2); Carbon Dioxide 20 mmol/L (22-30); Chloride 112 mmol/L (98-107); Glucose 88 mg/dl (70-99); Iron 58 ug/dl (37-170); Potassium 4.6 mmol/L (3.5-5.1); Sodium 139 mmol/L (135-145); Total Bilirubin 0.2 mg/dl (0.2-1.3); Total Protein 5.7 g/dl (6.3-8.2); eGFR 49.55
[2023-10-17 17:30] LABS: Percent Saturation 24 % (20-50); Total Iron Binding Capacity 234 ug/dl (265-497)
== END ==
LOC: OLABLV 15:32
PROVIDERS: ATTENDING PHYSICIAN Nurse Practitioner Adult Health
DX: E78.5 Hyperlipidemia, unspecified (principal); I10 Essential (primary) hypertension; D50.9 Iron deficiency anemia, unspecified
CPT/HCPCS: 36415; 80053; 82728; 83540; 83550; 85025

== ENCOUNTER → 2023-10-29 18:00 | Outpatient (REF) | payer OTHER, SELFPAY ==
[2023-10-30 14:06] LABS: Urine Albumin Trace (Neg - Trace); Urine Bilirubin Negative (Negative); Urine Character Slightly Cloudy (Clear); Urine Color Yellow; Urine Glucose Negative (Negative); Urine Ketone Negative (Negative); Urine Leukocyte 2+ (Negative); Urine Nitrite Negative (Negative); Urine Occult Blood 2+ (Negative); Urine Urobilinogen Negative (Neg - 1+)
[2023-10-30 15:09] LABS: Urine Mucus Few
[2023-10-30 15:11] LABS: Urine White Cell 80-90 /HPF (0-5)
== END ==
LOC: OLABLV 18:00
PROVIDERS: ATTENDING PHYSICIAN Nurse Practitioner Adult Health
DX: N39.0 Urinary tract infection, site not specified (principal)
CPT/HCPCS: 81003; 81015; 87086

== ENCOUNTER 2023-11-01 02:59 | Inpatient (IN) | payer OTHER, SELFPAY ==
[2023-10-31 21:25] VITALS: BP 109/78; BMI 25.8
[2023-10-31 21:28] VITALS: BP 109/78
[2023-10-31] MEDS: TYLENOL/FEVERALL 650 MG RECTAL (21:57)
[2023-10-31] MEDS: NSS 2000 IV (21:57)
[2023-10-31 22:00] VITALS: BP 90/67
[2023-10-31 22:03] LABS: Urine Albumin 1+ (Neg - Trace); Urine Bilirubin Negative (Negative); Urine Character Slightly Cloudy (Clear); Urine Color Yellow; Urine Glucose Negative (Negative); Urine Ketone Negative (Negative); Urine Leukocyte 2+ (Negative); Urine Nitrite Positive (Negative); Urine Occult Blood 2+ (Negative); Urine Urobilinogen Negative (Neg - 1+)
[2023-10-31 22:04] LABS: % Basophils 0.2 % (0-2); % Eosinophils 0.1 % (0-6); % Immature Granulocytes 0.4 % (0-0.5); % Lymphocytes 3.4 % (20.5-51.1); % Monocytes 8.1 % (1.7-9.3); % Neutrophils 87.8 % (42.2-75.2); Absolute Immature Granulocytes 0.1 10^3/uL (0-0.05); Absolute Lymphocytes 0.6 10^3/uL (1.2-3.4); Absolute Monocytes 1.5 10^3/uL (0.1-0.6); Hematocrit 35.8 % (37.0-47.0); Hemoglobin 12.3 g/dL (12.0-16.0); Mean Corp Hgb Conc. 34.4 g/dL (33.0-37.0); Mean Corpuscular Hgb 32.7 pg (27.0-31.0); Mean Corpuscular Volume 95.2 fL (81.0-99.0); Mean Platelet Volume 9.2 fL (7.4-10.4); Nucleated Red Blood Cells % 0 %; Platelet Count 291 10^3/uL (130-400); Red Blood Cell Count 3.76 10^6/uL (4.20-5.40); Red Cell Dist. Width 13.2 % (11.5-14.5); White Blood Cell Count 18.2 10^3/uL (4.8-10.8)
[2023-10-31 22:11] LABS: Lactic Acid 1.4 mmol/L (0.7-2.0)
[2023-10-31 22:13] LABS: ALT (SGPT) 44 U/L (0-35); AST (SGOT) 74 U/L (14-36); Albumin 3.6 g/dl (3.5-5.0); Alkaline Phosphatase 130 U/L (38-126); Blood Urea Nitrogen 28 mg/dl (7-17); Carbon Dioxide 18 mmol/L (22-30); Chloride 107 mmol/L (98-107); Estimated Creatinine Clearance 26 ml/min; Glucose 130 mg/dl (70-99); Potassium 3.8 mmol/L (3.5-5.1); Sodium 137 mmol/L (135-145); Total Bilirubin 0.5 mg/dl (0.2-1.3); Total Protein 6.4 g/dl (6.3-8.2); eGFR 44.64
[2023-10-31 22:21] LABS: Urine White Cell >100 /HPF (0-5)
[2023-10-31 22:22] LABS: Urine Bacteria Moderate (Negative)
[2023-10-31 22:42] VITALS: BP 105/59
[2023-10-31 23:00] VITALS: BP 113/61
[2023-10-31] MEDS: LEVAQUIN 100 IV (23:21)
[2023-10-31 23:30] VITALS: BP 111/59
--- NOTE | 2023-10-31 23:30 | ED.GENMED ---
Addendum entered and electronically signed by Erwin Garza MD 11/01/23 00:45:
CT scan shows hiatal hernia. Bladder wall thickening. No other significant abnormalities. Symptoms most consistent with urosepsis. SVT on arrival that resolved.
Original Note:
History of Present Illness
<Erwin Garza MD - Last Filed: 10/31/23 23:32>
General
Chief Complaint: Abdominal Pain
Time Seen by Provider: 10/31/23 21:24
Travel History
Have you had any contact with someone who has COVID-19?: No
Do you have any symptoms of coronavirus? Fever > 100 degrees, chills, cough, shortness of breath, sore throat, loss of taste or smell, muscle aches, or headache?: No
<Alen Yousif PA-C - Last Filed: 10/31/23 23:41>
History of Present Illness
History of Present Illness:
83-year-old female with history of hypertension, hyperlipidemia, and prior stroke with resultant left-sided weakness presents to the emergency department from [facility] for evaluation of lower abdominal pain with vomiting as well as burning with
urination that began yesterday. She apparently had a urinalysis obtained yesterday but was not started on any antibiotics. Mental status declined this evening and she was sent to the emergency department. On arrival the patient was lethargic but
is able to arouse to voice and answers all questions appropriately. She did not have any antipyretics today.
Past History
<Erwin Garza MD - Last Filed: 10/31/23 23:32>
Past History
ED Past Medical History: CVA (Left sided weakess), HTN, Hypercholesterolemia, Psychiatric (Depression/anxiety) and Other (DVT, spinal stenosis, UTI, Anemia, )
ED Past Surgical History: None and Other (Vein Ligation, )
Social History
Tobacco: Non-smoker
Alcohol: None
Drug: None
Personal: ( has Alzheimer's in [facility]. )
Living: alone (Independent living [facility])
Employment: Retired
Family History
Family History: CAD and Other (Stroke)
Review of Systems
<Alen Yousif PA-C - Last Filed: 10/31/23 23:41>
Review of Systems
Allergies reviewed?: Yes
All Other Systems: ROS reviewed and negative except as documented in HPI and ROS
Phy Exam
<Alen Yousif PA-C - Last Filed: 10/31/23 23:41>
Physical Exam
Physical Exam:
GEN: Toxic appearing, somnolent, arouses to voice
Eyes: PERRLA, EOMs intact, no scleral icterus
HENT: NCAT, oral mucosa dry
Lungs: CTAB, no wheezes, rales, rhonchi, normal chest wall excursion
Cardiac: Tachycardic, regular
Abdomen: Soft, mild tenderness to the suprapubic space, no rigidity
Neuro: Somnolent but arouses to voice, oriented to baseline. Left upper extremity weakness and contracture at baseline
MSK: No gross deformity or ecchymosis. No edema. No digital clubbing
Skin: Warm and diaphoretic
Psych: Calm, cooperative, proper hygiene
Course
<Erwin Garza MD - Last Filed: 10/31/23 23:32>
Orders/Labs/Results
Orders:
Orders
10/31/23 21:25
Electrocardiogram (*1) Urgent
Reason for Study: Other
Other Reason for Exam: Possible Sepsis
Cardiac Monitoring- Treatment ONCE
EKG- Treatment ONCE
IV Insert/Care/Rem.- Treatment PRN
Straight cath- Treatment ONCE
O2 Therapy [RESP] Urgent
Titrate/Wean O2 to maintain O2 sat greater than (%): 93
Special Instructions: TO MAINTAIN CONTINUOUS O2 SATS > OR = 93%
Pulse Ox/cont/shift [RESP] Urgent
Quantity: 1
Special Instructions: CONTINUOUS
10/31/23 21:32
Acetaminophen [Tylenol/Feverall] 650 mg RECTAL NOW STA
10/31/23 21:33
Acetaminophen [Tylenol/Feverall] 650 mg .ROUTE .STK-MED ONE
10/31/23 21:35
Complete Blood Count/With Diff Urgent
Comprehensive Metabolic Panel Urgent
Lactic Acid Q4H
Comment: ON ICE, CANCEL 2ND ORDER IF FIRST LACTIC ACID LEVEL <2
Blood Culture Q30M
CEDRIC Source: Blood/Venous
Specimen Description:
Comment: FROM 2 SEPARATE SITES
10/31/23 21:39
0.9% Sodium Chloride 1000 ml [Nss] 2,000 ml IV BOLUS
10/31/23 21:52
Urinalysis Reflex To Culture Urgent
Date Specimen was Collected: 10/31/23
Time Specimen was Collected: 21:25
Urine Microscopic Reflex Cult Urgent
Blood Culture Q30M
CEDRIC Source: Blood/Venous
Specimen Description:
Comment: FROM 2 SEPARATE SITES
Urine Culture Urgent
CEDRIC Source: U
Specimen Description:
Date Specimen was Collected: 10/31/23
Time Specimen was Collected: 21:25
10/31/23 22:20
LevoFLOXacin 500 MG/100 ML [Levaquin] 500 mg in 100 ml IV NOW
10/31/23 22:44
CT Abd/pel Without Iv Or Oral Urgent
Comment:
Reason For Exam: sepsis/UTI eval for obstruction
Abnormal Lab Results
10/31/23 10/31/23
21:35 21:52
WBC 18.2 H 10^3/uL
(4.8-10.8)
RBC 3.76 L 10^6/uL
(4.20-5.40)
Hct 35.8 L %
(37.0-47.0)
MCH 32.7 H pg
(27.0-31.0)
Abs Immat Gran (auto) 0.1 H 10^3/uL
(0-0.05)
Absolute Neuts (auto) 16.0 H 10^3/uL
(1.4-6.5)
Absolute Lymphs (auto) 0.6 L 10^3/uL
(1.2-3.4)
Absolute Monos (auto) 1.5 H 10^3/uL
(0.1-0.6)
Neutrophils % 87.8 H %
(42.2-75.2)
Lymphocytes % 3.4 L %
(20.5-51.1)
Carbon Dioxide 18 L mmol/L
(22-30)
BUN 28 H mg/dl
(7-17)
Creatinine 1.2 H mg/dL
(0.6-1.0)
Glucose 130 H mg/dl
(70-99)
AST 74 H U/L
(14-36)
ALT 44 H U/L
(0-35)
Alkaline Phosphatase 130 H U/L
(38-126)
Ur Occult Blood Reflex 2+ A
(Negative)
Urine Nitrite (Reflex) Positive A
(Negative)
Leukocyte Esterase Rfl 2+ A
(Negative)
Urine RBC 3-6 A /HPF
(0-2)
Urine WBC (Reflex) >100 A /HPF
(0-5)
Urine Bacteria (Reflex) Moderate A
(Negative)
Urine Albumin (Reflex) 1+ A
(Neg - Trace)
10/31/23 21:35
10/31/23 21:35
Vital Signs
Initial and Last Documented VS:
Initial Vital Signs
Temp Pulse Resp BP Pulse Ox
102.5 F H 144 25 109/78 93
10/31/23 21:25 10/31/23 21:25 10/31/23 21:25 10/31/23 21:25 10/31/23 21:25
Last Documented Vital Signs
Temp Pulse Resp BP Pulse Ox
102.5 F H 86 21 113/61 92
10/31/23 21:25 10/31/23 23:00 10/31/23 23:00 10/31/23 23:00 10/31/23 23:00
<Alen Yousif PA-C - Last Filed: 10/31/23 23:41>
Orders/Labs/Results
Orders:
Orders
10/31/23 21:25
Electrocardiogram (*1) Urgent
Reason for Study: Other
Other Reason for Exam: Possible Sepsis
Cardiac Monitoring- Treatment ONCE
EKG- Treatment ONCE
IV Insert/Care/Rem.- Treatment PRN
Straight cath- Treatment ONCE
O2 Therapy [RESP] Urgent
Titrate/Wean O2 to maintain O2 sat greater than (%): 93
Special Instructions: TO MAINTAIN CONTINUOUS O2 SATS > OR = 93%
Pulse Ox/cont/shift [RESP] Urgent
Quantity: 1
Special Instructions: CONTINUOUS
10/31/23 21:32
Acetaminophen [Tylenol/Feverall] 650 mg RECTAL NOW STA
10/31/23 21:33
Acetaminophen [Tylenol/Feverall] 650 mg .ROUTE .STK-MED ONE
10/31/23 21:35
Complete Blood Count/With Diff Urgent
Comprehensive Metabolic Panel Urgent
Lactic Acid Q4H
Comment: ON ICE, CANCEL 2ND ORDER IF FIRST LACTIC ACID LEVEL <2
Blood Culture Q30M
CEDRIC Source: Blood/Venous
Specimen Description:
Comment: FROM 2 SEPARATE SITES
10/31/23 21:39
0.9% Sodium Chloride 1000 ml [Nss] 2,000 ml IV BOLUS
10/31/23 21:52
Urinalysis Reflex To Culture Urgent
Date Specimen was Collected: 10/31/23
Time Specimen was Collected: 21:25
Urine Microscopic Reflex Cult Urgent
Blood Culture Q30M
CEDRIC Source: Blood/Venous
Specimen Description:
Comment: FROM 2 SEPARATE SITES
Urine Culture Urgent
CEDRIC Source: U
Specimen Description:
Date Specimen was Collected: 10/31/23
Time Specimen was Collected: 21:25
10/31/23 22:20
LevoFLOXacin 500 MG/100 ML [Levaquin] 500 mg in 100 ml IV NOW
10/31/23 22:44
CT Abd/pel Without Iv Or Oral Urgent
Comment:
Reason For Exam: sepsis/UTI eval for obstruction
Abnormal Lab Results
10/31/23 10/31/23
21:35 21:52
WBC 18.2 H 10^3/uL
(4.8-10.8)
RBC 3.76 L 10^6/uL
(4.20-5.40)
Hct 35.8 L %
(37.0-47.0)
MCH 32.7 H pg
(27.0-31.0)
Abs Immat Gran (auto) 0.1 H 10^3/uL
(0-0.05)
Absolute Neuts (auto) 16.0 H 10^3/uL
(1.4-6.5)
Absolute Lymphs (auto) 0.6 L 10^3/uL
(1.2-3.4)
Absolute Monos (auto) 1.5 H 10^3/uL
(0.1-0.6)
Neutrophils % 87.8 H %
(42.2-75.2)
Lymphocytes % 3.4 L %
(20.5-51.1)
Carbon Dioxide 18 L mmol/L
(22-30)
BUN 28 H mg/dl
(7-17)
Creatinine 1.2 H mg/dL
(0.6-1.0)
Glucose 130 H mg/dl
(70-99)
AST 74 H U/L
(14-36)
ALT 44 H U/L
(0-35)
Alkaline Phosphatase 130 H U/L
(38-126)
Ur Occult Blood Reflex 2+ A
(Negative)
Urine Nitrite (Reflex) Positive A
(Negative)
Leukocyte Esterase Rfl 2+ A
(Negative)
Urine RBC 3-6 A /HPF
(0-2)
Urine WBC (Reflex) >100 A /HPF
(0-5)
Urine Bacteria (Reflex) Moderate A
(Negative)
Urine Albumin (Reflex) 1+ A
(Neg - Trace)
10/31/23 21:35
10/31/23 21:35
Vital Signs
Initial and Last Documented VS:
Initial Vital Signs
Temp Pulse Resp BP Pulse Ox
102.5 F H 144 25 109/78 93
10/31/23 21:25 10/31/23 21:25 10/31/23 21:25 10/31/23 21:25 10/31/23 21:25
Last Documented Vital Signs
Temp Pulse Resp BP Pulse Ox
102.5 F H 86 21 113/61 92
10/31/23 21:25 10/31/23 23:00 10/31/23 23:00 10/31/23 23:00 10/31/23 23:00
<Alen Yousif PA-C - Last Filed: 10/31/23 23:41>
MDM/Problems Addressed
MDM/Problems Addressed:
83-year-old female presents with acute sepsis likely due to UTI. On arrival she was noted to be in a narrow complex tachycardia that abruptly broke during IV fluid resuscitation likely indicating SVT versus 2-1 atrial flutter. No rate control was
needed for this. She was given IV fluids, broad-spectrum IV antibiotics, and antipyretics and will be admitted to the hospitalist service. CT ordered to assess for potential urologic obstruction, pending at time of admission, will sign out to
Greg pending CT read
<Alen Yousif PA-C - Last Filed: 10/31/23 23:41>
*Critical Care Note
Total Time (30-74mins, 75-104mins- exclusive of procedures): Not Applicable
ED Attending Note
<Erwin Garza MD - Last Filed: 10/31/23 23:32>
ED Attending Note
Patient seen and examined by attending physician: Yes
I performed the substantive portion of visit, reviewed & personally made and approve the management plan that is documented in note by myself or BARRIE.: Yes
ED Attending Note:
83-year-old female nausea vomiting some left lower abdominal pain. Started treated for UTI yesterday. Did not know she had a fever. Has had this intermittently in the past.
On exam patient is elderly and frail chronically ill-appearing. Hypotensive. No pain with hip rotation. Left leg is slightly shorter. Abdomen is soft and nontender. No respiratory distress.
Previous testing reviewed. Leukocytosis. Positive urine. Hypotensive. Fluids antibiotics CT scan and admission. Initial EKG
-
Portions of this chart may have been created with voice recognition software.� Occasional wrong word or��sound alike� substitutions may have occurred due to the inherent limitations of voice recognition software.
Discharge Plan
Departure
Patient Disposition: Admit
Date of Disposition: 10/31/23
Time of Disposition: 23:34
Presentation/result/management discussed w/ accepting MD/DO: Hospitalist
Discharge Problem:
Urinary tract infection, Sepsis, Nonsustained supraventricular tachycardia
Prescriptions:
No Action
bisacodyl 10 mg Suppository
10 mg MS DAILY PRN (Reason: constipation)
olopatadine 0.2 % Drops
1 drp BOTH EYES DAILY PRN (Reason: conjunctivitis)
Repatha SureClick 140 mg/mL Pen Injector
140 mg SC MONTHLY
Rx Instructions:
06/12/2023, administer on the 1st of every month.
acetaminophen 325 MG tablet
650 mg PO Q4H PRN (Reason: mild pain/fever>100)
docusate sodium 100 MG capsule
100 mg PO HS
pantoprazole [Protonix] 40 mg Tablet,Delayed Release (Dr/Ec)
40 mg PO DAILY
sennosides [senna] 8.6 mg Tablet
8.6 mg PO HS PRN (Reason: constipation)
diphenhydramine-zinc acetate 1-0.1 % Cream
1 applic TOPICAL Q8H PRN (Reason: itching) Qty: 0
fluticasone propionate 50 mcg/actuation [place],Suspension
2 spray INTRANASAL DAILY PRN (Reason: allergic rhinitis)
lidocaine 4 % Adhesive Patch,Medicated
1 patch topical DAILY Qty: 10 0RF
polyethylene glycol 3350 [HealthyLax] 17 gram Powder In Packet
17 g PO BID Qty: 10 0RF
Eliquis 2.5 mg Tablet
2.5 mg PO BID Qty: 0 0RF
lorazepam 0.5 mg Tablet
0.5 mg PO HS PRN (Reason: sleep/anxiety)
Orajel Maximum Strength 20 % Gel
1 applic MUCOUS MEMBRANE TID PRN (Reason: mouth pain)
Referrals:
Angel Junior CRNP [Family Provider] -
Interventions
Interventions:
*Risk Screen - Suicide Last Done: 10/31/23 21:25
*General Assessment Last Done: 10/31/23 21:25
*Neglect/Abuse Screening Last Done: 10/31/23 21:25
*ED COVID-19 Vaccine History Last Done: 10/31/23 21:25
QU-Sowytw-Xumcyyzjpj Assessment Last Done: 10/31/23 21:37
Discharge Date and Time
Print Language: NAMIBIAN
[2023-11-01] VITALS (20 sets, daily range): BP systolic 95–146; BP diastolic 49–97; PULSE 80; O2SAT 93; BMI 25.8
--- NOTE | 2023-11-01 01:09 | HPS.HSE ---
Family Physician
-
Family Physician: VANESSA Finney
Chief Complaint
-
Dysuria, abd pain, fatigue
History of Present Illness
Patient is an 83y F with PMH significant for ASCVD, spinal stenosis and history of DVT who presents to ED complaining of urinary symptoms and fatigue x 1 week. Patient states that she developed burning with urination about one week ago. Her
symptoms have persisted and she has become more fatigued. Today she developed nausea and had a single episode of emesis. She presented to the ED for evaluation and was noted to have fever to 102.5.
Patient denies any cough, diarrhea, etc.
Patient reports prior history of recurrent UTIs.
Medical History
Past Medical History
Past Medical History: Reports Other
Additional Past Medical History:
ASCVD / Multiple Prior CVAs
Dyslipidemia
Hemorrhoids (External and Internal)
Spinal Stenosis / Chronic Back Pain
Hypervascular Bladder Lesion
Left Renal Cystic Lesion
History of LLE DVT (post-CVA)
Large Hiatal Hernia / GERD
Statin Intolerance
Past Surgical History: Reports Other
Additional Past Surgical History:
T&A
RLE Vein Stripping
Social History
Tobacco: Non-smoker
Alcohol: None
Drug: None
Living: [facility]pc
Family History
Family History: Other (Mother: Longevity, CVA Father: CAD Sister: CVA, HTN)
Allergies / Home Medications
Allergies reflects when Allergies were last updated in [employer].
Home Medications with original date entered in [employer]
Allergy/Medication List:
Allergies
Allergy/AdvReac Type Severity Reaction Status Date / Time
aspirin [From Aggrenox] Allergy Nausea / Verified 04/16/23 14:22
Vomiting
Cephalosporins Allergy Unknown Verified 04/16/23 14:22
dipyridamole [From Aggrenox] Allergy Nausea / Verified 04/16/23 10:28
Vomiting
loratadine Allergy Unknown Verified 04/16/23 14:22
Penicillins Allergy Unknown Verified 04/16/23 10:28
potassium Allergy Unknown Verified 04/16/23 14:22
Ycrjyee-CHP-SwN Reductase Allergy Unknown Verified 04/16/23 14:22
Inhibitor
Sulfa (Sulfonamide Allergy Unknown Verified 04/16/23 10:28
Antibiotics)
Home Medications
acetaminophen 325 mg tablet 650 mg PO Q4H PRN mild pain/fever>100 11/19/22
bisacodyl 10 mg rectal suppository 10 mg IN DAILY PRN constipation 11/19/22
evolocumab 140 mg/mL subcutaneous pen injector (Repatha SureClick) 140 mg SC MONTHLY High Cholesterol 11/19/22
olopatadine 0.2 % eye drops 1 drp BOTH EYES DAILY PRN conjunctivitis 11/19/22
docusate sodium 100 mg capsule 100 mg PO HS Constipation 04/16/23
pantoprazole 40 mg tablet,delayed release (Protonix) 40 mg PO DAILY Gastrointestinal Issue 04/16/23
diphenhydramine-zinc acetate 1 %-0.1 % topical cream 1 applic topical Q8H PRN itching ##0 06/12/23
fluticasone propionate 50 mcg/actuation nasal spray,suspension 2 spray intranasal DAILY PRN allergic rhinitis 06/12/23
sennosides 8.6 mg tablet (senna) 8.6 mg PO HS PRN constipation 06/12/23
lidocaine 4 % topical patch 1 patch topical DAILY #10 ea 06/18/23
polyethylene glycol 3350 17 gram oral powder packet (HealthyLax) 17 g PO BID #10 ea 06/18/23
apixaban 2.5 mg tablet (Eliquis) 2.5 mg PO BID #0 tabs 06/24/23
benzocaine 20 % mucosal gel 1 applic mucous membrane TID PRN mouth pain 10/31/23
lorazepam 0.5 mg tablet 0.5 mg PO HS PRN sleep/anxiety 10/31/23
Review of Systems
-
History Source: Patient
A 12 point ROS was completed and negative except as noted: Yes
Constitutional: Reports Fatigue and Chills
EENT: Denies Sore Throat
Respiratory: Denies Cough or Trouble Breathing
Cardiac: Denies Chest Pain or Palpitations
Abdomen/GI: Reports Abdominal Pain, Nausea and Vomiting; Denies Diarrhea or Bloody Stools
: Reports Dysuria and Frequency; Denies Flank Pain
Neurological: Denies Dizzy or Headache
Psych: Denies Depression or Anxiety
Physical Exam
Vital Signs
Vital Signs
Temp Pulse Resp BP Pulse Ox
102.5 F H 87 32 98/59 94
10/31/23 21:25 11/01/23 01:00 11/01/23 01:00 11/01/23 01:00 11/01/23 01:00
Physical Exam
General: Other (83y F in no acute distress.)
HEENT: Moist mucous membranes and PERRLA
Respiratory: Clear; No Wheezes, Rales or Rhonchi
Cardiac: S1/S2, Regular Rhythm and Murmur (II/ MARNI)
GI: Soft, Non Distended and Normal Bowel Sounds
Genito-urinary: No costovertebral tender and Other (Pos suprapubic tenderness.)
Musculoskeletal: No Clubbing, No Cyanosis and No Edema
Neuro: AO x 3 and Other (LUE contracture / paresis, mild facial droop / dysarthria - chronic. No new focal deficits.)
Psych: No Anxious or Depressed
Laboratory Results
-
10/31/23 21:35
10/31/23 21:35
Laboratory Results
Lactic Acid 1.4 mmol/L (0.7-2.0) 10/31/23 21:35
Total Bilirubin 0.5 mg/dl (0.2-1.3) 10/31/23 21:35
AST 74 U/L (14-36) H 10/31/23 21:35
ALT 44 U/L (0-35) H 10/31/23 21:35
Alkaline Phosphatase 130 U/L (38-126) H 10/31/23 21:35
Impression/Plan
-
A/P: Patient is an 83y F with PMH significant for ASCVD / prior strokes who presents to ED complaining of one week of urinary symptoms and fatigue.
UTI
Sepsis secondary to the above
- Admit for further evaluation and treatment.
- Patient presents with fever, leukocytosis and tachycardia with urinary symptoms and UA suggestive of infection.
- IV abx (levofloxacin given multiple drug allergies).
- Follow-up culture data and adjust meds as able.
- Supportive care with IVFs, antipyretics, etc.
- Follow for clinical improvement.
SVT
- Patient noted to be in SVT on initial presentation with regular rhythm and rate in the 130-140 range.
- This spontaneously converted in the ED - now in sinus in the 70s.
- Monitor on telemetry or any recurrence.
- Consider Cardiology eval if recurrent SVT.
Abnormal LFTs
- Question secondary to acute illness / sepsis.
- No upper abdominal pain. Had N/V x 1 today.
- CT was unremarkable in this regard.
- Follow for improvement. Consider US, etc if abnormality persists.
ASCVD
- History of multiple CVAs and residual deficits.
- Continue current CV med regimen including Eliquis.
- Follow for any new symptoms / complaints.
Hiatal Hernia / GERD
- Stable. Continue daily PPI.
DVT Prophylaxis: On Eliquis
Code Status: Full
[2023-11-01] MEDS: LR 1000 IV ×2 (03:15→15:39)
[2023-11-01] MEDS: MIRALAX PO ×2 (08:15→19:48)
[2023-11-01] MEDS: TYLENOL 650 MG PO ×2 (08:17→17:27)
[2023-11-01] MEDS: PROTONIX 40 MG PO (08:18)
[2023-11-01] MEDS: ELIQUIS 2.5 MG PO ×2 (08:18→19:48)
--- NOTE | 2023-11-01 09:57 | W.PN.HOSP.TC ---
Today's Communication/Plan
-
await culture data
cont levaquin
Assessment / Plan
Assessment / Plan
pt is an 83 year old female
sepsis due to UTI--Patient presents with fever, leukocytosis and tachycardia with urinary symptoms and UA suggestive of infection--PO abx (levofloxacin given multiple drug allergies and same bioavailability as IV)--Follow-up culture data and adjust
meds as able--Supportive care with IVFs, antipyretics, etc.
SVT-- Patient noted to be in SVT on initial presentation with regular rhythm and rate in the 130-140 range--This spontaneously converted in the ED - now in sinus in the 70s--Monitor on telemetry or any recurrence--Consider Cardiology eval if
recurrent SVT.
Abnormal LFTs--Question secondary to acute illness/sepsis--No upper abdominal pain. Had N/V x 1 today---CT was unremarkable in this regard--Follow for improvement. Consider US, etc if abnormality persists.
ASCVD--History of multiple CVAs and residual deficits--Continue current CV med regimen including Eliquis--Follow for any new symptoms / complaints.
Hiatal Hernia/GERD--Stable. Continue daily PPI.
DVT Prophylaxis: On Eliquis
Code Status: Full
Anticipated Discharge: 24 - 48 hours
Subjective/Interval History
-
Date of Service: November 01, 2023
pt c/o soreness from vomiting, headache
Objective Data
-
Labs:
Laboratory Results
10/31/23 11/01/23
21:35 06:00
WBC 18.2 H Pending
Hgb 12.3 Pending
Hct 35.8 L Pending
Plt Count 291 Pending
Sodium 137 Pending
Potassium 3.8 Pending
Chloride 107 Pending
Carbon Dioxide 18 L Pending
BUN 28 H Pending
Creatinine 1.2 H Pending
Glucose 130 H Pending
Calcium 9.0 Pending
Total Bilirubin 0.5
AST 74 H
ALT 44 H
Alkaline Phosphatase 130 H
Vital Signs:
max temp for 24 hours
10/31/23
21:25
Temp 102.5 F H
Vital Signs
Temp Pulse Resp BP Pulse Ox
101.5 F H 91 20 143/60 92
11/01/23 08:13 11/01/23 08:13 11/01/23 08:13 11/01/23 08:13 11/01/23 08:13
Review of Systems
-
All other systems: Reviewed and negative
Neuro: Reports Headache
Physical Exam
-
General: Well Developed, Well Nourished and No Apparent Distress
HEENT: Normocephalic and Atraumatic; Negative Oxygen
Respiratory: Clear to Auscultation; Negative Wheezes or Rhonchi
Cardiac: Regular Rhythm, S1/S2 and Murmur
GI: Soft, Nontender, Nondistended and Normal Bowel Sounds
Musculoskeletal: No Clubbing, No Cyanosis and No Edema
Neuro: Awake
Psych: Calm
--- NOTE | 2023-11-01 09:58 | CM ---
Addendum entered by Stephany Beard 11/01/23 10:10:
CM spoke with Trinity from [facility], Pending PT/OT assessment. Per [facility] lately patient has needed more help, walks with walker with encouragement. Per [facility] stated that patient one arm is constricted, has assistance in bathroom. CM will
continue to follow for discharge planning needs.
Original Note:
Patient seen at bedside with physician. Patient is from [facility] and states that her daughter Candelaria Pascual ex [phone] is her daughter and helps her with paperwork. CM will call to [facility] to follow for clarification of level of care needs and
functionality. CM called to admissions at [facility], VM left. CM will continue to follow for discharge planning needs.
Plan; return to [facility]; pending medical treatment plan
[2023-11-01 10:22] LABS: Hemoglobin 10.2 g/dL (12.0-16.0); Mean Corpuscular Hgb 32.2 pg (27.0-31.0); Mean Corpuscular Volume 94.6 fL (81.0-99.0); Platelet Count 248 10^3/uL (130-400); Red Blood Cell Count 3.17 10^6/uL (4.20-5.40); Red Cell Dist. Width 13.2 % (11.5-14.5); White Blood Cell Count 13.9 10^3/uL (4.8-10.8)
[2023-11-01 10:33] LABS: Blood Urea Nitrogen 23 mg/dl (7-17); Calcium 8.4 mg/dl (8.4-10.2); Carbon Dioxide 21 mmol/L (22-30); Chloride 111 mmol/L (98-107); Estimated Creatinine Clearance 29 ml/min; Glucose 96 mg/dl (70-99); Sodium 136 mmol/L (135-145); eGFR 49.55
--- NOTE | 2023-11-01 23:45 | PTCARENOTE ---
Pt reports history of hemorrhoids and requesting hemorrhoid cream; pt takes diphenhydramine-zinc acetate at home. House [employer]OR Mitul Goddard notified, order for PRN diphenhydramine-zinc acetate received by this RN and is in pending status until pt
brings in her own medication. This RN applied calazime lotion to hemorrhoids and explained to pt that she would need to bring in her hemorrhoid cream from home.
[2023-11-02] MEDS: TYLENOL 650 MG PO (00:59)
[2023-11-02 03:21] VITALS: BP 138/81
[2023-11-02] MEDS: LR 1000 IV (03:47)
[2023-11-02 05:30] VITALS: BMI 25.7
[2023-11-02 07:58] VITALS: BP 147/84
[2023-11-02 08:29] LABS: Hematocrit 30.5 % (37.0-47.0); Hemoglobin 10.1 g/dL (12.0-16.0); Mean Corp Hgb Conc. 33.1 g/dL (33.0-37.0); Mean Corpuscular Hgb 32.3 pg (27.0-31.0); Mean Corpuscular Volume 97.4 fL (81.0-99.0); Mean Platelet Volume 9.3 fL (7.4-10.4); Platelet Count 243 10^3/uL (130-400); Red Blood Cell Count 3.13 10^6/uL (4.20-5.40); Red Cell Dist. Width 13.1 % (11.5-14.5); White Blood Cell Count 8.2 10^3/uL (4.8-10.8)
[2023-11-02] MEDS: PROTONIX 40 MG PO (08:52)
[2023-11-02] MEDS: LEVAQUIN 250 MG PO (08:52)
[2023-11-02] MEDS: ELIQUIS 2.5 MG PO ×2 (08:52→19:51)
[2023-11-02] MEDS: MIRALAX 17 GRAMS PO (08:52)
[2023-11-02] MEDS: LIDOCAINE 4% PATCH 1 PATCH TOPICAL (08:53)
[2023-11-02 09:18] LABS: ALT (SGPT) 30 U/L (0-35); AST (SGOT) 30 U/L (14-36); Albumin 2.9 g/dl (3.5-5.0); Alkaline Phosphatase 94 U/L (38-126); Blood Urea Nitrogen 19 mg/dl (7-17); Calcium 8.9 mg/dl (8.4-10.2); Carbon Dioxide 20 mmol/L (22-30); Chloride 109 mmol/L (98-107); Estimated Creatinine Clearance 32 ml/min; Glucose 88 mg/dl (70-99); Potassium 3.8 mmol/L (3.5-5.1); Sodium 137 mmol/L (135-145); Total Bilirubin 0.4 mg/dl (0.2-1.3); Total Protein 5.5 g/dl (6.3-8.2); eGFR 55.55
--- NOTE | 2023-11-02 10:29 | W.PN.HOSP.TC ---
Today's Communication/Plan
-
await identification of bacteria in urine
cont levaquin for now
stop IVF
transfer to med/surg
Assessment / Plan
Assessment / Plan
pt is an 83 year old female
sepsis due to gm neg UTI--PO abx (levofloxacin given multiple drug allergies and same bioavailability as IV)--Follow-up culture data and adjust meds as able--stop IVFs, antipyretics, etc.
SVT-- Patient noted to be in SVT on initial presentation with regular rhythm and rate in the 130-140 range--This spontaneously converted in the ED - now in sinus in the 70s--Monitor on telemetry or any recurrence--Consider Cardiology eval if
recurrent SVT.
Abnormal LFTs--Question secondary to acute illness/sepsis--No upper abdominal pain. Had N/V x 1 today---CT was unremarkable in this regard--Follow for improvement. Consider US, etc if abnormality persists.
ASCVD--History of multiple CVAs and residual deficits--Continue current CV med regimen including Eliquis--Follow for any new symptoms / complaints.
Hiatal Hernia/GERD--Stable. Continue daily PPI.
DVT Prophylaxis: On Eliquis
Code Status: Full
Anticipated Discharge: Within 24 hours
Subjective/Interval History
-
Date of Service: November 02, 2023
pt without c/o
Objective Data
-
Labs:
Laboratory Results
11/02/23
07:45
WBC 8.2
Hgb 10.1 L
Hct 30.5 L
Plt Count 243
Sodium 137
Potassium 3.8
Chloride 109 H
Carbon Dioxide 20 L
BUN 19 H
Creatinine 1.0
Glucose 88
Calcium 8.9
Total Bilirubin 0.4
AST 30
ALT 30
Alkaline Phosphatase 94
Vital Signs:
max temp for 24 hours
11/02/23
03:21
Temp 100.8 F H
Vital Signs
Temp Pulse Resp BP Pulse Ox
97.8 F 71 18 147/84 95
11/02/23 07:58 11/02/23 07:58 11/02/23 07:58 11/02/23 07:58 11/02/23 07:58
I&O
11/01/23 11/02/23 11/03/23
06:59 06:59 06:59
Intake Total 1800 / 1800
Balance 1800 / 1800
Review of Systems
-
All other systems: Reviewed and negative
Physical Exam
-
General: Well Developed, Well Nourished and No Apparent Distress
HEENT: Normocephalic and Atraumatic
Respiratory: Clear to Auscultation; Negative Wheezes or Rhonchi
Cardiac: Regular Rhythm and S1/S2; Negative Murmur
GI: Soft, Nontender, Nondistended and Normal Bowel Sounds
Musculoskeletal: No Clubbing, No Cyanosis and No Edema
Neuro: Awake and Alert
Psych: Calm
--- NOTE | 2023-11-02 10:31 | CM ---
Addendum entered by Stephany Beard 11/02/23 16:39:
auth submitted with clinical information, awaiting response from [facility]. Patient daughter aware and to talk to [facility] about possible private pay pending auth. Patient daughter would like patient to go tomorrow. awaiting confirmation from
[facility].
Addendum entered by Stephany Beard 11/02/23 14:09:
[facility] now stating that patient needs to go to SNF at [facility], Carmen from [facility] spoke with patient and confirmed plan. Alba from [facility] stated that she can accept patient for transfer on sunday but patient will need Auth. CM will call to start auth.
Addendum entered by Stephany Beard 11/02/23 10:37:
Patient daughter spoke with physician. Awaiting assessment by PT/OT and will review with patient daughter of possibility of PT/OT at [facility]. CM spoke with daughter and she is aware of the IMM and would like [facility]. CM sent tt to
liaison for [facility] and called to [facility] to update about possible discharge tomorrow. CM will continue to follow for discharge planning needs.
Plan; [facility] pending acceptance
Original Note:
Patient seen at bedside with physician. Patient from [facility] and plan is for discharge to [facility] pending pt/ot assessment. CM reviewed IMM and and signed form placed on chart. Also called to patient daughter to review, no response will call back.
CM will continue to follow for discharge planning needs.
Plan; return to [facility].pending pt/ot assessment
--- NOTE | 2023-11-02 12:33 | VNURNOTE ---
Home Health Liaison met with patient at 1130 to discuss [facility] nurse/therapy, visits, schedule and homebound status. Patient is agreeable and understands that visits at home will be 2-3 x per week to assess and teach medical management. Daughter
Candelaria came in at end of discussion but all information reviewed.
[facility] brochure provided with contact information. Patient is aware that [facility] will contact her for start of care in 1-2 days after discharge from .
[facility] referral completed in [facility].
[2023-11-02 15:36] VITALS: BP 141/75
[2023-11-02] MEDS: MIRALAX PO (19:51)
[2023-11-02 23:10] VITALS: BP 141/75
[2023-11-03 06:00] VITALS: BMI 24.8
[2023-11-03 07:00] VITALS: BP 133/92
[2023-11-03 07:40] VITALS: BP 143/75
[2023-11-03] MEDS: PROTONIX 40 MG PO (09:43)
[2023-11-03] MEDS: LEVAQUIN 250 MG PO (09:43)
[2023-11-03] MEDS: ELIQUIS 2.5 MG PO ×2 (09:44→19:40)
[2023-11-03] MEDS: MIRALAX 17 GRAMS PO (09:44)
[2023-11-03] MEDS: LIDOCAINE 4% PATCH 1 PATCH TOPICAL (09:44)
[2023-11-03 10:13] VITALS: BP 130/79; PULSE 77; O2SAT 94
[2023-11-03 10:14] VITALS: BP 132/79; PULSE 78; O2SAT 94
--- NOTE | 2023-11-03 12:26 | W.PN.HOSP.TC ---
Today's Communication/Plan
-
change ABX to low dose keflex
Assessment / Plan
Assessment / Plan
pt is an 83 year old female
sepsis due to E. coli UTI--PO abx (resistant to levofloxacin so need to stop)--change to keflex, low dose--Follow-up culture data and adjust meds as able--stop IVFs, antipyretics, etc.
SVT-- Patient noted to be in SVT on initial presentation with regular rhythm and rate in the 130-140 range--This spontaneously converted in the ED -Consider Cardiology eval if recurrent SVT.
Abnormal LFTs--Question secondary to acute illness/sepsis--No upper abdominal pain. Had N/V x 1 today---CT was unremarkable in this regard--Follow for improvement. Consider US, etc if abnormality persists.
ASCVD--History of multiple CVAs and residual deficits--Continue current CV med regimen including Eliquis--Follow for any new symptoms / complaints.
Hiatal Hernia/GERD--Stable. Continue daily PPI.
DVT Prophylaxis: On Eliquis
Code Status: Full
Anticipated Discharge: > 48 hours
Subjective/Interval History
-
Date of Service: November 03, 2023
pt without c/o
Objective Data
-
Vital Signs:
max temp for 24 hours
11/02/23
15:36
Temp 98.4 F
Vital Signs
Temp Pulse Resp BP Pulse Ox
97.9 F 76 18 143/75 95
11/03/23 07:40 11/03/23 07:40 11/03/23 07:40 11/03/23 07:40 11/03/23 07:40
I&O
11/02/23 11/03/23 11/04/23
06:59 06:59 06:59
Intake Total 1800 / 1800 600 / 600
Balance 1800 / 1800 600 / 600
Review of Systems
-
All other systems: Reviewed and negative
Physical Exam
-
General: Well Developed, Well Nourished and No Apparent Distress
HEENT: Normocephalic and Atraumatic
Respiratory: Clear to Auscultation; Negative Wheezes or Rhonchi
Cardiac: Regular Rhythm and S1/S2; Negative Murmur
GI: Soft, Nontender, Nondistended and Normal Bowel Sounds
Musculoskeletal: No Clubbing, No Cyanosis and No Edema
[2023-11-03] MEDS: KEFLEX 250 MG PO ×2 (13:01→22:51)
[2023-11-03] MEDS: TYLENOL 650 MG PO (14:11)
[2023-11-03 15:35] VITALS: BP 135/75
[2023-11-03] MEDS: MIRALAX PO (19:39)
[2023-11-03 23:15] VITALS: BP 131/66
[2023-11-04 06:00] VITALS: BMI 24.6
[2023-11-04 07:00] VITALS: BP 133/92
[2023-11-04 08:16] LABS: Hematocrit 33.7 % (37.0-47.0); Hemoglobin 11.1 g/dL (12.0-16.0); Mean Corp Hgb Conc. 32.9 g/dL (33.0-37.0); Mean Corpuscular Volume 97.1 fL (81.0-99.0); Mean Platelet Volume 9.4 fL (7.4-10.4); Platelet Count 297 10^3/uL (130-400); Red Blood Cell Count 3.47 10^6/uL (4.20-5.40); Red Cell Dist. Width 12.8 % (11.5-14.5); White Blood Cell Count 6.6 10^3/uL (4.8-10.8)
[2023-11-04 08:28] LABS: Blood Urea Nitrogen 20 mg/dl (7-17); Calcium 8.8 mg/dl (8.4-10.2); Carbon Dioxide 24 mmol/L (22-30); Chloride 106 mmol/L (98-107); Estimated Creatinine Clearance 32 ml/min; Glucose 99 mg/dl (70-99); Potassium 3.9 mmol/L (3.5-5.1); Sodium 139 mmol/L (135-145); eGFR 55.55
[2023-11-04] MEDS: ELIQUIS 2.5 MG PO ×2 (09:55→20:00)
[2023-11-04] MEDS: KEFLEX 250 MG PO ×2 (09:55→20:00)
[2023-11-04] MEDS: PROTONIX 40 MG PO (09:55)
[2023-11-04] MEDS: MIRALAX PO ×2 (09:56→20:01)
[2023-11-04] MEDS: LIDOCAINE 4% PATCH 1 PATCH TOPICAL (09:56)
--- NOTE | 2023-11-04 10:20 | CM ---
TC to [facility] , per message need to call during business hours M-F.
Plan: bed available at [facility], await insurance authorization.
--- NOTE | 2023-11-04 10:32 | W.PN.HOSP.TC ---
Today's Communication/Plan
-
waiting for insurance auth for d/c
Assessment / Plan
Assessment / Plan
pt is an 83 year old female
sepsis due to E. coli UTI--PO abx (resistant to levofloxacin so need to stop)--change to keflex, low dose--Follow-up culture data and adjust meds as able--stop IVFs, antipyretics, etc--uncomplicated UTI, would treat for 3 days total
SVT-- Patient noted to be in SVT on initial presentation with regular rhythm and rate in the 130-140 range--This spontaneously converted in the ED--was due to sepsis
Abnormal LFTs--Question secondary to acute illness/sepsis--No upper abdominal pain. Had N/V x 1 today---CT was unremarkable in this regard--Follow for improvement. Consider US, etc if abnormality persists.
ASCVD--History of multiple CVAs and residual deficits--Continue current CV med regimen including Eliquis--Follow for any new symptoms / complaints.
Hiatal Hernia/GERD--Stable. Continue daily PPI.
DVT Prophylaxis: On Eliquis
Code Status: Full
Anticipated Discharge: 24 - 48 hours
Subjective/Interval History
-
Date of Service: November 04, 2023
pt c/o diarrhea with Keflex
Objective Data
-
Labs:
Laboratory Results
11/04/23
07:19
WBC 6.6
Hgb 11.1 L
Hct 33.7 L
Plt Count 297 D
Sodium 139
Potassium 3.9
Chloride 106
Carbon Dioxide 24
BUN 20 H
Creatinine 1.0
Glucose 99
Calcium 8.8
Vital Signs:
max temp for 24 hours
11/03/23
15:35
Temp 98.3 F
Vital Signs
Temp Pulse Resp BP Pulse Ox
97.7 F 79 18 133/92 98
11/04/23 07:00 11/04/23 07:00 11/04/23 07:00 11/04/23 07:00 11/04/23 07:00
I&O
11/03/23 11/04/23 11/05/23
06:59 06:59 06:59
Intake Total 600 / 600 720 / 720
Balance 600 / 600 720 / 720
Review of Systems
-
All other systems: Reviewed and negative
Abdomen/GI: Reports Diarrhea
Physical Exam
-
General: Well Developed, Well Nourished and No Apparent Distress
HEENT: Normocephalic and Atraumatic
Respiratory: Clear to Auscultation; Negative Wheezes or Rhonchi
Cardiac: Regular Rhythm and S1/S2; Negative Murmur
GI: Soft, Nontender, Nondistended and Normal Bowel Sounds
Musculoskeletal: No Clubbing, No Cyanosis and No Edema
Skin: Warm
Neuro: Awake
Psych: Calm
[2023-11-04 15:00] VITALS: BP 109/79
--- NOTE | 2023-11-04 16:01 | PTCARENOTE ---
Patient OOB to chair with mod assist x1. Patient tolerated sitting in chair for 2 hours. Patient's heel are red, blanchable and boggy. B/L heel foams placed for protections. Heels on air cushion when back in bed. Call montes in reach.
[2023-11-04 23:20] VITALS: BP 146/93
[2023-11-05 06:00] VITALS: BMI 24.7
[2023-11-05 07:00] VITALS: BP 150/83
[2023-11-05] MEDS: PROTONIX 40 MG PO (08:26)
[2023-11-05] MEDS: KEFLEX 250 MG PO ×2 (08:26→19:33)
[2023-11-05] MEDS: ELIQUIS 2.5 MG PO ×2 (08:26→19:33)
[2023-11-05] MEDS: LIDOCAINE 4% PATCH 1 PATCH TOPICAL (08:26)
[2023-11-05] MEDS: MIRALAX PO (08:26)
[2023-11-05] MEDS: MIRALAX 17 GRAMS PO ×2 (08:29→19:33)
[2023-11-05 09:42] LABS: Hematocrit 34.1 % (37.0-47.0); Hemoglobin 11.6 g/dL (12.0-16.0); Mean Corpuscular Hgb 32.4 pg (27.0-31.0); Mean Corpuscular Volume 95.3 fL (81.0-99.0); Mean Platelet Volume 9.2 fL (7.4-10.4); Platelet Count 351 10^3/uL (130-400); Red Blood Cell Count 3.58 10^6/uL (4.20-5.40); Red Cell Dist. Width 12.5 % (11.5-14.5); White Blood Cell Count 6.2 10^3/uL (4.8-10.8)
[2023-11-05 09:43] LABS: ALT (SGPT) 22 U/L (0-35); AST (SGOT) 21 U/L (14-36); Albumin 3.2 g/dl (3.5-5.0); Alkaline Phosphatase 102 U/L (38-126); Blood Urea Nitrogen 20 mg/dl (7-17); Calcium 9.3 mg/dl (8.4-10.2); Carbon Dioxide 21 mmol/L (22-30); Chloride 108 mmol/L (98-107); Estimated Creatinine Clearance 35 ml/min; Glucose 102 mg/dl (70-99); Magnesium 2.1 mg/dl (1.6-2.3); Potassium 3.8 mmol/L (3.5-5.1); Sodium 137 mmol/L (135-145); Total Bilirubin 0.5 mg/dl (0.2-1.3); Total Protein 6.1 g/dl (6.3-8.2); eGFR > 60.00
--- NOTE | 2023-11-05 09:54 | CM ---
Addendum entered by Kendra Barton 11/05/23 17:13:
Fax from [facility] saying only 2 pages of referral received.
Refaxed to same number from different fax machine.
(referral originally faxed today at 2:50 pm with confirmation receipt of 27 pages, refaxed 5:15 pm with confirmation of 27 pages)
Addendum entered by Kendra Barton 11/05/23 10:37:
await updated PT/OT notes to fax with referral.
Original Note:
TC to [facility], spoke with brewery representative. P# [phone]
They did not receive the skilled rehab request faxed on Sunday.
Await fax cover sheet from [facility] to send with request and fax clinicals to [phone].
TC from [facility], bed available pending insurance authorization.
Plan: skilled rehab at [facility] once insurance auth obtained.
[2023-11-05 11:19] VITALS: BP 125/86; PULSE 88; O2SAT 91
[2023-11-05] MEDS: TYLENOL 650 MG PO (12:21)
--- NOTE | 2023-11-05 13:50 | W.PN.HOSP.TC ---
Today's Communication/Plan
-
.
Assessment / Plan
Assessment / Plan
Physical Exam
-
General: Well Developed, Well Nourished and No Apparent Distress
HEENT: Normocephalic and Atraumatic
Respiratory: Clear to Auscultation; Negative Wheezes or Rhonchi
Cardiac: Regular Rhythm and S1/S2; Negative Murmur
GI: Soft, Nontender, Nondistended and Normal Bowel Sounds
Musculoskeletal: No Clubbing, No Cyanosis and No Edema
Skin: Warm
Neuro: Awake
Psych: Calm
pt is an 83 year old female
sepsis due to E. coli UTI--PO abx (resistant to levofloxacin so need to stop)--changed to Keflex, low dose--
Stopped IVFs, antipyretics, complicated UTI due to sepsis , would treat for 7 days total
# KAMARI, resolved.
SVT-- Patient noted to be in SVT on initial presentation with regular rhythm and rate in the 130-140 range-was due to sepsis
Abnormal LFTs--Question secondary to acute illness/sepsis--No upper abdominal pain. Had N/V x 1 today---CT was unremarkable in this regard-- LFT went back to normal.
ASCVD--History of multiple CVAs and residual deficits--Continue current CV med regimen including Eliquis--Followed commands.
Hiatal Hernia/GERD--Stable. Continue daily PPI.
DVT Prophylaxis: On Eliquis
Code Status: Full
Total time spent to see the patient, examine the patient on the floor, review data and lab results, discuss treatment plan with patient, daughter, nursing staff around 55 minutes
Anticipated Discharge: Within 24 hours
Subjective/Interval History
-
Date of Service: November 05, 2023
No abd pain
No chest pain
Objective Data
-
Labs:
Laboratory Results
11/05/23
08:48
WBC 6.2
Hgb 11.6 L
Hct 34.1 L
Plt Count 351
Sodium 137
Potassium 3.8
Chloride 108 H
Carbon Dioxide 21 L
BUN 20 H
Creatinine 0.9
Glucose 102 H
Calcium 9.3
Total Bilirubin 0.5
AST 21
ALT 22
Alkaline Phosphatase 102
Vital Signs:
Vital Signs
Temp Pulse Resp BP Pulse Ox
97.7 F 79 18 150/83 94
11/05/23 07:00 11/05/23 07:00 11/05/23 07:00 11/05/23 07:00 11/05/23 07:00
I&O
11/04/23 11/05/23 11/06/23
06:59 06:59 06:59
Intake Total 720 / 720 840 / 840
Balance 720 / 720 840 / 840
[2023-11-05 15:00] VITALS: BP 118/69
[2023-11-05 23:09] VITALS: BP 142/73
[2023-11-06 03:54] VITALS: BMI 24.8
[2023-11-06 07:07] VITALS: BP 133/78
[2023-11-06] MEDS: MIRALAX 17 GRAMS PO (08:29)
[2023-11-06] MEDS: ELIQUIS 2.5 MG PO (08:29)
[2023-11-06] MEDS: LIDOCAINE 4% PATCH 1 PATCH TOPICAL (08:29)
[2023-11-06] MEDS: PROTONIX 40 MG PO (08:29)
[2023-11-06] MEDS: KEFLEX 250 MG PO (08:29)
--- NOTE | 2023-11-06 09:43 | CM ---
Spoke with Alba from [facility], they will be able to accept patient private pay until insurance auth is received.
Spoke with Candelaria, patients daughter who is in agreement.
Plan for transfer to [facility] 1 pm, daughter will transport.
IMM reviewed with daughter Candelaria.
Plan: [facility] today
[facility]
Report# [phone]
--- NOTE | 2023-11-06 10:01 | W.PN.HOSP.TC ---
Today's Communication/Plan
-
dc
Assessment / Plan
Assessment / Plan
Physical Exam
-
General: Well Developed, Well Nourished and No Apparent Distress
HEENT: Normocephalic and Atraumatic
Respiratory: Clear to Auscultation; Negative Wheezes or Rhonchi
Cardiac: Regular Rhythm and S1/S2; Negative Murmur
GI: Soft, Nontender, Nondistended and Normal Bowel Sounds
Musculoskeletal: No Clubbing, No Cyanosis and No Edema
Skin: Warm
Neuro: Awake
Psych: Calm
pt is an 83 year old female
Sepsis due to E. coli UTI--PO abx (resistant to levofloxacin so need to stop)--changed to Keflex, low dose--
Stopped IVFs, antipyretics, complicated UTI due to sepsis , would treat for 7 days total
# KAMARI, resolved.
SVT-- Patient noted to be in SVT on initial presentation with regular rhythm and rate in the 130-140 range-was due to sepsis
Abnormal LFTs--Question secondary to acute illness/sepsis--No upper abdominal pain. Had N/V x 1 today---CT was unremarkable in this regard-- LFT went back to normal.
ASCVD--History of multiple CVAs and residual deficits--Continue current CV med regimen including Eliquis--Followed commands.
Hiatal Hernia/GERD--Stable. Continue daily PPI.
DVT Prophylaxis: On Eliquis
Code Status: Full
Total discharge time spent to see the patient, examine the patient on the floor, review data and lab results, discuss discharge plan with patient, daughter, nursing staff around 65 minutes
Anticipated Discharge: Today
Subjective/Interval History
-
Date of Service: November 06, 2023
No complaints
slept well
No pain issues
Objective Data
-
Vital Signs:
Vital Signs
Temp Pulse Resp BP Pulse Ox
97.4 F 70 16 133/78 94
11/06/23 07:07 11/06/23 07:07 11/06/23 07:07 11/06/23 07:07 11/06/23 07:07
I&O
11/05/23 11/06/23 11/07/23
06:59 06:59 06:59
Intake Total 840 / 840 1620 / 1620
Balance 840 / 840 1620 / 1620
--- NOTE | 2023-11-06 10:02 | W.DCSUMMARY ---
Discharge Summary
Discharge Data
Date of Admission: 11/01/23
Date of Discharge: 11/06/23
-
Pending Results: No
Hospital Course
83 years old female admitted with urinary symptoms and fatigue for 1 week duration. She had fever, leukocytosis and tachycardia in the emergency room. Patient was diagnosed with sepsis-like syndrome from urinary tract infection. Urine culture
was positive for Escherichia coli. Blood culture did not show any growth. He had elevated liver enzymes but later resolved. she had a scan of the abdomen and pelvis that showed no acute pathology of the abdomen or pelvis, large hiatal hernia,
diffuse bladder wall thickening consistent with cystitis. Patient started to improve with antibiotic. She did not have recurrent fever. She was able to tolerate diet. Patient remained hemodynamically stable and was discharged in a stable
condition to [facility] facility.
Discharge Plan
-
Patient Disposition: Long-Term/SNF
Discharge Diagnosis/Procedures: Urinary tract infection with E. coli/cystitis
Constipation, resolved
Elevated liver enzymes, resolved
Acute kidney injury, resolved
Hiatal hernia/GERD
History of strokes
Diet: As tolerated
Referrals:
Angel Junior CRNP [Family Provider] - in one to two weeks
Prescriptions:
New
cephalexin 250 mg Capsule
250 mg PO BID Qty: 4 0RF
Continued
bisacodyl 10 mg Suppository
10 mg KS DAILY PRN (Reason: constipation)
Repatha SureClick 140 mg/mL Pen Injector
140 mg SC MONTHLY
Rx Instructions:
06/12/2023, administer on the 1st of every month.
acetaminophen 325 MG tablet
650 mg PO Q4H PRN (Reason: mild pain/fever>100)
docusate sodium 100 MG capsule
100 mg PO HS
pantoprazole [Protonix] 40 mg Tablet,Delayed Release (Dr/Ec)
40 mg PO DAILY
sennosides [senna] 8.6 mg Tablet
8.6 mg PO HS PRN (Reason: constipation)
lidocaine 4 % Adhesive Patch,Medicated
1 patch topical DAILY Qty: 10 0RF
polyethylene glycol 3350 [HealthyLax] 17 gram Powder In Packet
17 g PO BID Qty: 10 0RF
Eliquis 2.5 mg Tablet
2.5 mg PO BID Qty: 0 0RF
Discontinued
olopatadine 0.2 % Drops
1 drp BOTH EYES DAILY PRN (Reason: conjunctivitis)
diphenhydramine-zinc acetate 1-0.1 % Cream
1 applic TOPICAL Q8H PRN (Reason: itching) Qty: 0
fluticasone propionate 50 mcg/actuation [place],Suspension
2 spray INTRANASAL DAILY PRN (Reason: allergic rhinitis)
lorazepam 0.5 mg Tablet
0.5 mg PO HS PRN (Reason: sleep/anxiety)
Orajel Maximum Strength 20 % Gel
1 applic MUCOUS MEMBRANE TID PRN (Reason: mouth pain)
Discharge Orders:
Discharge Patient (As Directed); Ordered 11/05/23
Ordered By: John Storm
Discharge Date and Time
Discharge Date/Time: 11/06/23 13:12
Print Language: AMHARIC
[2023-11-06] MEDS: TYLENOL 650 MG PO (11:20)
[2023-11-06 11:55] VITALS: BP 142/95
== END 2023-11-06 13:12 | DRG 872 ==
LOC: 4 WEST ACU 02:59
PROVIDERS: Internal Medicine; Physician Assistant; ADMITTING PHYSICIAN Hospitalist; ATTENDING PHYSICIAN Internal Medicine; EMERGENCY PHYSICIAN Emergency Medicine; FAMILY PHYSICIAN Registered Nurse
DX: A41.51 Sepsis due to Escherichia coli [E. coli] (principal); I47.10 Supraventricular tachycardia, unspecified; I69.354 Hemiplegia and hemiparesis following cerebral infarction affecting left non-dominant side; N17.9 Acute kidney failure, unspecified; Z16.23 Resistance to quinolones and fluoroquinolones; N30.90 Cystitis, unspecified without hematuria; R79.89 Other specified abnormal findings of blood chemistry; K44.9 Diaphragmatic hernia without obstruction or gangrene; I25.10 Atherosclerotic heart disease of native coronary artery without angina pectoris; M48.00 Spinal stenosis, site unspecified; R65.20 Severe sepsis without septic shock; G89.29 Other chronic pain; K21.9 Gastro-esophageal reflux disease without esophagitis; I10 Essential (primary) hypertension; E78.00 Pure hypercholesterolemia, unspecified; D64.9 Anemia, unspecified; F32.A Depression, unspecified; F41.9 Anxiety disorder, unspecified; K59.00 Constipation, unspecified; Z86.718 Personal history of other venous thrombosis and embolism; Z87.440 Personal history of urinary (tract) infections; Z79.01 Long term (current) use of anticoagulants
CPT/HCPCS: 51701; 74176; 80048; 80053; 81003; 81015; 83605; 83735; 85025; 85027; 87040; 87077; 87086; 87186; 93005; 94760; 96361; 96365; 97110; 97116; 97167; 97530; 97535; 99285

== ENCOUNTER → 2023-11-09 10:20 | Outpatient (REF) | payer OTHER, SELFPAY ==
[2023-11-09 12:19] LABS: Hematocrit 35.3 % (37.0-47.0); Hemoglobin 11.6 g/dL (12.0-16.0); Mean Corp Hgb Conc. 32.9 g/dL (33.0-37.0); Mean Corpuscular Hgb 31.9 pg (27.0-31.0); Mean Platelet Volume 8.9 fL (7.4-10.4); Platelet Count 522 10^3/uL (130-400); Red Blood Cell Count 3.64 10^6/uL (4.20-5.40); Red Cell Dist. Width 12.6 % (11.5-14.5)
[2023-11-09 12:45] LABS: Blood Urea Nitrogen 23 mg/dl (7-17); Calcium 9.5 mg/dl (8.4-10.2); Carbon Dioxide 23 mmol/L (22-30); Chloride 107 mmol/L (98-107); Glucose 98 mg/dl (70-99); Potassium 4.3 mmol/L (3.5-5.1); Sodium 139 mmol/L (135-145); eGFR > 60.00
== END ==
LOC: OLABP 10:20
PROVIDERS: ATTENDING PHYSICIAN Family Medicine
DX: A41.9 Sepsis, unspecified organism (principal)
CPT/HCPCS: 36415; 80048; 85027

== ENCOUNTER → 2023-11-23 11:19 | Outpatient (REF) | payer OTHER, SELFPAY ==
[2023-11-23 12:11] LABS: % Basophils 0.4 % (0-2); % Eosinophils 2.4 % (0-6); % Immature Granulocytes 0.2 % (0-0.5); % Lymphocytes 21.2 % (20.5-51.1); % Monocytes 14.8 % (1.7-9.3); Absolute Eosinophils 0.1 10^3/uL (0-0.7); Absolute Monocytes 0.7 10^3/uL (0.1-0.6); Absolute Neutrophils 2.9 10^3/uL (1.4-6.5); Hematocrit 33.5 % (37.0-47.0); Hemoglobin 11.3 g/dL (12.0-16.0); Mean Corp Hgb Conc. 33.7 g/dL (33.0-37.0); Mean Corpuscular Hgb 31.7 pg (27.0-31.0); Mean Corpuscular Volume 93.8 fL (81.0-99.0); Mean Platelet Volume 10.3 fL (7.4-10.4); Nucleated Red Blood Cells % 0 %; Platelet Count 307 10^3/uL (130-400); Red Blood Cell Count 3.57 10^6/uL (4.20-5.40); White Blood Cell Count 4.7 10^3/uL (4.8-10.8)
[2023-11-23 13:15] LABS: ALT (SGPT) 15 U/L (0-35); AST (SGOT) 23 U/L (14-36); Albumin 3.5 g/dl (3.5-5.0); Alkaline Phosphatase 80 U/L (38-126); Blood Urea Nitrogen 26 mg/dl (7-17); Calcium 9.1 mg/dl (8.4-10.2); Carbon Dioxide 19 mmol/L (22-30); Chloride 108 mmol/L (98-107); Glucose 85 mg/dl (70-99); Potassium 4.3 mmol/L (3.5-5.1); Sodium 136 mmol/L (135-145); Total Bilirubin 0.4 mg/dl (0.2-1.3); Total Protein 6.5 g/dl (6.3-8.2); eGFR > 60.00
== END ==
LOC: OLABLV 11:19
PROVIDERS: ATTENDING PHYSICIAN Registered Nurse
DX: I10 Essential (primary) hypertension (principal); N18.32 Chronic kidney disease, stage 3b; D64.9 Anemia, unspecified
CPT/HCPCS: 36415; 80053; 85025

== ENCOUNTER → 2023-12-12 09:30 | Outpatient (REF) | payer OTHER, SELFPAY ==
[2023-12-12 13:28] LABS: ALT (SGPT) 12 U/L (0-35); AST (SGOT) 17 U/L (14-36); Albumin 3.5 g/dl (3.5-5.0); Alkaline Phosphatase 75 U/L (38-126); Blood Urea Nitrogen 34 mg/dl (7-17); Calcium 9.4 mg/dl (8.4-10.2); Carbon Dioxide 24 mmol/L (22-30); Chloride 108 mmol/L (98-107); Glucose 89 mg/dl (70-99); Potassium 4.3 mmol/L (3.5-5.1); Sodium 139 mmol/L (135-145); Total Bilirubin 0.2 mg/dl (0.2-1.3); eGFR 55.55
[2023-12-12 13:41] LABS: % Basophils 0.4 % (0-2); % Eosinophils 3.4 % (0-6); % Immature Granulocytes 0.2 % (0-0.5); % Lymphocytes 20.6 % (20.5-51.1); % Monocytes 14.8 % (1.7-9.3); % Neutrophils 60.6 % (42.2-75.2); Absolute Eosinophils 0.2 10^3/uL (0-0.7); Absolute Monocytes 0.7 10^3/uL (0.1-0.6); Absolute Neutrophils 2.8 10^3/uL (1.4-6.5); Hemoglobin 11.2 g/dL (12.0-16.0); Mean Corp Hgb Conc. 32.9 g/dL (33.0-37.0); Mean Corpuscular Hgb 32.6 pg (27.0-31.0); Mean Corpuscular Volume 98.8 fL (81.0-99.0); Mean Platelet Volume 9.9 fL (7.4-10.4); Nucleated Red Blood Cells % 0 %; Platelet Count 312 10^3/uL (130-400); Red Blood Cell Count 3.44 10^6/uL (4.20-5.40); Red Cell Dist. Width 12.6 % (11.5-14.5); White Blood Cell Count 4.7 10^3/uL (4.8-10.8)
== END ==
LOC: OLABLV 09:30
PROVIDERS: ATTENDING PHYSICIAN Registered Nurse
DX: D64.9 Anemia, unspecified (principal); N18.32 Chronic kidney disease, stage 3b
CPT/HCPCS: 36415; 80053; 85025

== ENCOUNTER → 2024-03-12 10:43 | Outpatient (REF) | payer OTHER, SELFPAY ==
[2024-03-12 11:27] LABS: % Basophils 0.4 % (0-2); % Eosinophils 3.2 % (0-6); % Immature Granulocytes 0.2 % (0-0.5); % Lymphocytes 13.1 % (20.5-51.1); % Monocytes 12.8 % (1.7-9.3); % Neutrophils 70.3 % (42.2-75.2); Absolute Eosinophils 0.2 10^3/uL (0-0.7); Absolute Lymphocytes 0.7 10^3/uL (1.2-3.4); Absolute Monocytes 0.7 10^3/uL (0.1-0.6); Hematocrit 33.5 % (37.0-47.0); Hemoglobin 11.1 g/dL (12.0-16.0); Mean Corp Hgb Conc. 33.1 g/dL (33.0-37.0); Mean Corpuscular Hgb 31.1 pg (27.0-31.0); Mean Corpuscular Volume 93.8 fL (81.0-99.0); Mean Platelet Volume 9.6 fL (7.4-10.4); Nucleated Red Blood Cells % 0 %; Platelet Count 297 10^3/uL (130-400); Red Blood Cell Count 3.57 10^6/uL (4.20-5.40); Red Cell Dist. Width 12.7 % (11.5-14.5); White Blood Cell Count 5.6 10^3/uL (4.8-10.8)
[2024-03-12 11:46] LABS: ALT (SGPT) 15 U/L (0-35); AST (SGOT) 19 U/L (14-36); Albumin 3.5 g/dl (3.5-5.0); Alkaline Phosphatase 70 U/L (38-126); Blood Urea Nitrogen 34 mg/dl (7-17); Calcium 9.2 mg/dl (8.4-10.2); Carbon Dioxide 24 mmol/L (22-30); Chloride 105 mmol/L (98-107); Glucose 82 mg/dl (70-99); HDL Cholesterol 63 mg/dl; Iron 56 ug/dl (37-170); LDL Cholesterol, Calculated 129 mg/dl; Potassium 4.8 mmol/L (3.5-5.1); Sodium 138 mmol/L (135-145); Total Bilirubin 0.4 mg/dl (0.2-1.3); Total Cholesterol 204 mg/dl (50-199); Total Protein 5.9 g/dl (6.3-8.2); Triglyceride 64 mg/dl (10-149); Very Low Density Lipoprotein 12 mg/dl (0-30); eGFR 49.24
[2024-03-12 11:54] LABS: Percent Saturation 24 % (20-50); Total Iron Binding Capacity 231 ug/dl (265-497)
[2024-03-12 12:13] LABS: TSH Reflex To Free T4 1.73 uIU/ml (0.47-4.68)
== END ==
LOC: OLABLV 10:43
PROVIDERS: ATTENDING PHYSICIAN Registered Nurse
DX: D50.8 Other iron deficiency anemias (principal); N18.32 Chronic kidney disease, stage 3b; R77.0 Abnormality of albumin; E78.00 Pure hypercholesterolemia, unspecified
CPT/HCPCS: 36415; 80053; 80061; 82728; 83540; 83550; 84443; 85025

== ENCOUNTER → 2024-03-23 22:00 | Outpatient (REF) | payer OTHER, SELFPAY ==
[2024-03-24 18:38] LABS: Urine Albumin 2+ (Neg - Trace); Urine Bilirubin Negative (Negative); Urine Character Very Cloudy (Clear); Urine Color Yellow; Urine Glucose Negative (Negative); Urine Ketone Negative (Negative); Urine Leukocyte 2+ (Negative); Urine Nitrite Positive (Negative); Urine Occult Blood 2+ (Negative); Urine Urobilinogen Negative (Neg - 1+)
[2024-03-24 18:54] LABS: Urine Bacteria Moderate (Negative); Urine White Cell >100 /HPF (0-5)
== END ==
LOC: OLABLV 22:00
PROVIDERS: ATTENDING PHYSICIAN Nurse Practitioner Adult Health
DX: N39.0 Urinary tract infection, site not specified (principal)
CPT/HCPCS: 81003; 81015; 87086

== ENCOUNTER 2024-07-04 08:19 | Emergency (ER) | payer OTHER, SELFPAY ==
[2024-07-04 08:21] VITALS: BP 158/97
--- NOTE | 2024-07-04 09:54 | ED.GENMED ---
History of Present Illness
General
Chief Complaint: Fall
Source: patient
Exam Limitations: none
Time Seen by Provider: 07/04/24 09:42
History of Present Illness
History of Present Illness:
84yoF with a history of hypertension, hyperlipidemia, DVT on Eliquis, prior CVA with baseline L sided weakness presenting via EMS for evaluation after a fall. Patient is a resident at [facility]. She had a fall out of bed around 8am this morning. She
state that her legs got caught and she fell out of bed onto the floor. +Head strike, no LOC. Patient currently reports a headache, neck pain, and low back pain. She also has left hip pain although she also had this prior to the fall.
Past History
Past History
ED Past Medical History: CVA (Left sided weakess), HTN, Hypercholesterolemia, Psychiatric (Depression/anxiety) and Other (DVT, spinal stenosis, UTI, Anemia, )
ED Past Surgical History: None and Other (Vein Ligation, )
Social History
Tobacco: Non-smoker
Alcohol: None
Drug: None
Personal: ( has Alzheimer's in residential. )
Living: alone (Independent living [facility])
Employment: Retired
Family History
Family History: CAD and Other (Stroke)
Phy Exam
General Physical Exam
General Presentation: well appearing and no apparent distress
General age: appears stated age
General Skin: warm and dry
General Habitus: normal
General Mental: alert
ENT Exam
ENT Exam: other (Abrasions noted to forehead and nasal bridge. +Cervical tenderness without step-offs.)
Eye Exam
Eye Exam: PERRL
Pulmonary Exam
Pulmonary Exam: lungs clear, no respiratory distress, no rales, chest non tender, no crackles and no rhonchi
Neurological Exam
Neurological Exam: alert
Carmen Coma Scale
Eye Opening: Spontaneous
Verbal Response: Oriented
Motor Response: Obeys Commands
GCS Total Score: 15
Musculoskeletal Exam
Musculoskeletal Exam: other (L hip: Normal to inspection. +Tenderness to lateral joint. ROM intact.)
Skin Exam
Skin Exam: normal color and warm/dry
Psychiatric Exam
Psychiatric Exam: normal mood/affect
Course
Orders/Labs/Results
Orders:
Orders
07/04/24 08:23
CT Head W/o Iv Contrast Urgent
Comment:
Reason For Exam: fall hit face + thinners
07/04/24 09:53
CT Cervical Spine W/o Iv Contr Urgent
Comment:
Reason For Exam: fall, neck pain
CT Facial Bones W/o Iv Contras Urgent
Comment:
Reason For Exam: fall, nasal pain
Acetaminophen [Tylenol] 1,000 mg PO NOW STA
CR Lumbar Spine Comp Min 4 Vw* Urgent
Comment:
Reason For Exam: low back pain
Hip, Left 2-3 Views [CR Hip - LT w/wo Pel 2-3 Vw*] Urgent
Comment:
Reason For Exam: fall, hip pain
Include a pelvis x-ray?: Yes
Vital Signs
Initial and Last Documented VS:
Initial Vital Signs
Temp Pulse Resp BP Pulse Ox
97.9 F 89 16 158/97 95
07/04/24 08:21 07/04/24 08:21 07/04/24 08:21 07/04/24 08:21 07/04/24 08:21
Last Documented Vital Signs
Temp Pulse Resp BP Pulse Ox
97.9 F 77 16 151/81 96
07/04/24 08:21 07/04/24 12:24 07/04/24 12:24 07/04/24 12:24 07/04/24 12:24
MDM/Problems Addressed
Differential Diagnosis Includes:
84yoF here after a fall out of bed this morning. +Head strike, no LOC. C/o headache, neck pain, low back pain, L hip pain. She is mildly hypertensive with otherwise normal vitals. Forehead and nasal abrasions noted. Differential diagnosis includes
but is not limited to: abrasions, closed head injury, concussion, fracture, intracranial hemorrhage
Initial ED plan: Check CT head, CT cervical spine, CT facial bones, lumbar spine x-rays, and L hip x-rays. Tylenol for pain.
*Critical Care Note
Total Time (30-74mins, 75-104mins- exclusive of procedures): Not Applicable
Update Note
Update Note:
Imaging negative for traumatic injuries. Patient is stable for discharge back to her nursing facility. Daughter called and updated who will transport patient home. Patient discharged in stable condition.
ED Attending Note
-
Portions of this chart may have been created with voice recognition software.� Occasional wrong word or��sound alike� substitutions may have occurred due to the inherent limitations of voice recognition software.
Discharge Plan
Departure
Patient Disposition: Home (Routine Discharge)
Date of Disposition: 07/04/24
Time of Disposition: 11:39
Patient with high blood pressure during this ER visit?: Yes
Discharge Problem:
Accidental fall from bed, Closed head injury, Abrasion of face
Instructions: Head Injury in Adults (DC), Preventing falls in adults
Prescriptions:
No Action
bisacodyl 10 mg Suppository
10 mg TN DAILY PRN (Reason: constipation)
Repatha SureClick 140 mg/mL Pen Injector
140 mg SC MONTHLY
Rx Instructions:
06/12/2023, administer on the 1st of every month.
acetaminophen 325 MG tablet
650 mg PO Q4H PRN (Reason: mild pain/fever>100)
docusate sodium 100 MG capsule
100 mg PO HS
pantoprazole [Protonix] 40 mg Tablet,Delayed Release (Dr/Ec)
40 mg PO DAILY
sennosides [senna] 8.6 mg Tablet
8.6 mg PO HS PRN (Reason: constipation)
lidocaine 4 % Adhesive Patch,Medicated
1 patch topical DAILY Qty: 10 0RF
polyethylene glycol 3350 [HealthyLax] 17 gram Powder In Packet
17 g PO BID Qty: 10 0RF
Eliquis 2.5 mg Tablet
2.5 mg PO BID Qty: 0 0RF
cephalexin 250 mg Capsule
250 mg PO BID Qty: 4 0RF
Referrals:
NONE,* [Family Provider] -
Activity Restrictions/Additional Instructions:
Please follow-up with your family doctor. Return to the ER with any new or worsening symptoms.
Interventions
Interventions:
*Risk Screen - Suicide Last Done: 07/04/24 08:21
*General Assessment Last Done: 07/04/24 12:24
*Neglect/Abuse Screening Last Done: 07/04/24 08:21
ED- Fall Risk Assessment Last Done: 07/04/24 12:24
*ED COVID-19 Vaccine History Last Done: 07/04/24 12:24
*Nursing Disposition Last Done: 07/04/24 12:24
ED-Musculoskeletal Assessment Last Done: 07/04/24 12:24
ED- Neurological Assessment Last Done: 07/04/24 12:24
ED-Skin Assessment Last Done: 07/04/24 12:24
Discharge Date and Time
Discharge Date/Time: 07/04/24 12:27
Print Language: MARTINIQUAIS
[2024-07-04] MEDS: TYLENOL 1000 MG PO (10:34)
[2024-07-04 12:24] VITALS: BP 151/81
== END 2024-07-04 12:27 | disposition home or self-care (01) ==
LOC: EMR 08:19
PROVIDERS: EMERGENCY PHYSICIAN Emergency Medicine
DX: S09.90XA Unspecified injury of head, initial encounter (principal); S00.81XA Abrasion of other part of head, initial encounter; S00.31XA Abrasion of nose, initial encounter; M54.50 Low back pain, unspecified; M25.552 Pain in left hip; M54.2 Cervicalgia; W06.XXXA Fall from bed, initial encounter; I10 Essential (primary) hypertension; E78.00 Pure hypercholesterolemia, unspecified; Z86.718 Personal history of other venous thrombosis and embolism; Z79.01 Long term (current) use of anticoagulants
CPT/HCPCS: 99285; 70450; 70486; 72110; 72125; 73502

== ENCOUNTER → 2024-07-22 20:00 | Outpatient (REF) | payer OTHER, SELFPAY ==
[2024-07-23 11:27] LABS: Urine Albumin 3+ (Neg - Trace); Urine Bilirubin Negative (Negative); Urine Character Cloudy (Clear); Urine Color Yellow; Urine Glucose Negative (Negative); Urine Ketone Negative (Negative); Urine Leukocyte 3+ (Negative); Urine Nitrite Positive (Negative); Urine Occult Blood 4+ (Negative); Urine Specific Gravity 1.015 (<1.030); Urine Urobilinogen Negative (Neg - 1+)
[2024-07-23 13:09] LABS: Urine Bacteria Many (Negative); Urine White Cell >100 /HPF (0-5)
== END ==
LOC: OLABLV 20:00
PROVIDERS: ATTENDING PHYSICIAN Registered Nurse
DX: R35.0 Frequency of micturition (principal); N39.0 Urinary tract infection, site not specified
CPT/HCPCS: 81003; 81015; 87086; 87088

== ENCOUNTER → 2024-08-01 11:16 | Outpatient (REF) | payer OTHER, SELFPAY ==
[2024-08-01 12:00] LABS: % Basophils 0.8 % (0-2); % Eosinophils 4.4 % (0-6); % Immature Granulocytes 0.2 % (0-0.5); % Lymphocytes 18.7 % (20.5-51.1); % Monocytes 13.3 % (1.7-9.3); % Neutrophils 62.6 % (42.2-75.2); Absolute Eosinophils 0.2 10^3/uL (0-0.7); Absolute Lymphocytes 0.9 10^3/uL (1.2-3.4); Absolute Monocytes 0.7 10^3/uL (0.1-0.6); Absolute Neutrophils 3.1 10^3/uL (1.4-6.5); Mean Corp Hgb Conc. 31.4 g/dL (33.0-37.0); Mean Corpuscular Hgb 31.3 pg (27.0-31.0); Mean Corpuscular Volume 99.4 fL (81.0-99.0); Mean Platelet Volume 9.2 fL (7.4-10.4); Nucleated Red Blood Cells % 0 %; Platelet Count 359 10^3/uL (130-400); Red Blood Cell Count 3.52 10^6/uL (4.20-5.40); Red Cell Dist. Width 12.6 % (11.5-14.5)
[2024-08-01 12:19] LABS: ALT (SGPT) 13 U/L (0-35); AST (SGOT) 19 U/L (14-36); Albumin 3.2 g/dl (3.5-5.0); Alkaline Phosphatase 72 U/L (38-126); Blood Urea Nitrogen 23 mg/dl (7-17); Calcium 9.3 mg/dl (8.4-10.2); Carbon Dioxide 22 mmol/L (22-30); Chloride 108 mmol/L (98-107); Glucose 85 mg/dl (70-99); Potassium 4.6 mmol/L (3.5-5.1); Sodium 136 mmol/L (135-145); Total Bilirubin 0.3 mg/dl (0.2-1.3); Total Protein 5.9 g/dl (6.3-8.2); eGFR 49.24
[2024-08-01 12:32] LABS: Vitamin D, 25-OH*** 47.7 ng/mL (30-80)
[2024-08-01 12:46] LABS: TSH Reflex To Free T4 2.92 uIU/ml (0.47-4.68)
[2024-08-01 13:16] LABS: Urine Albumin 1+ (Neg - Trace); Urine Bilirubin 2+ (Negative); Urine Character Clear (Clear); Urine Glucose Negative (Negative); Urine Ketone Negative (Negative); Urine Leukocyte 2+ (Negative); Urine Nitrite Positive (Negative); Urine Occult Blood 1+ (Negative); Urine Specific Gravity 1.015 (<1.030); Urine Urobilinogen 2+ (Neg - 1+)
[2024-08-01 13:21] LABS: Folate 12.2 ng/ml (2.76-20); Vitamin B12 684 pg/ml (239-931)
[2024-08-01 13:27] LABS: Urine Color Orange
[2024-08-01 13:33] LABS: Urine Bacteria Few (Negative); Urine Red Blood Cell 0-2 /HPF (0-2); Urine Squamous Cell 16-20 /LPF (Few); Urine White Cell 21-25 /HPF (0-5)
== END ==
LOC: OLABLV 11:16
PROVIDERS: ATTENDING PHYSICIAN Nurse Practitioner Acute Care
DX: R10.30 Lower abdominal pain, unspecified (principal); I10 Essential (primary) hypertension
CPT/HCPCS: 36415; 80053; 81003; 81015; 82306; 82607; 82746; 84443; 85025; 87077; 87086; 87186

== ENCOUNTER 2024-08-29 18:28 | Inpatient (IN) | payer OTHER, SELFPAY ==
[2024-08-29 13:40] VITALS: BP 163/89
--- NOTE | 2024-08-29 16:06 | EDRN ---
Pt unable to get out of wheelchair and move to stretcher. This RN and Dr. Foster lifted patient from wheelchair to stretcher. Warm blankets provided to patient.
--- NOTE | 2024-08-29 16:41 | ED.MUSCINJ ---
HPI-Injury
General
Chief Complaint: Fall
Source: patient and family (daughter Candelaria at bedside)
Exam Limitations: none
Time Seen by Provider: 08/29/24 16:11
Nursing documentation reviewed up to this point in time: agreed with
History of Present Illness-Injury
Initial Injury comments:
84 yo female form [facility], hx of DVT on Eliquis, HTN, HLD, GERD, anemia, Anxiety/Depression, presents for fall in her room, states she lost her balance reaching over for a tissue. She did hit the left side of her head, no LOC, denies H/A,
mild left neck soreness, pain left hip. Denies n/v/d/c. Denies CP, SOB or abdominal pain.
Past History
Past History
ED Past Medical History: CVA (Left sided weakess), HTN, Hypercholesterolemia, Psychiatric (Depression/anxiety) and Other (DVT, spinal stenosis, UTI, Anemia, )
ED Past Surgical History: None and Other (Vein Ligation, )
Social History
Tobacco: Non-smoker
Alcohol: None
Drug: None
Personal: ( has Alzheimer's in halfway. )
Living: alone (Independent living [facility])
Employment: Retired
Family History
Family History: CAD and Other (Stroke)
Review of Systems
Review of Systems
Allergies reviewed?: Yes
All Other Systems: ROS reviewed and negative except as documented in HPI and ROS
Constitutional: Denies fever
Respiratory: Denies trouble breathing
Cardiac: Denies chest pain or syncope
ABD/GI: Denies abdominal pain, nausea, vomiting, diarrhea or anorexia
: Denies dysuria, frequency or difficulty voiding
Musculoskeletal: Reports neck pain and other (pain left hip); Denies back pain
Skin: Reports no symptoms
Neurological: Reports no symptoms
Phy Exam
Physical Exam
Physical Exam:
GENERAL: No acute distress. A&Ox3.
CONSTITUTIONAL: Afebrile.
EYES: clear, conjunctivae normal
ENMT: moist mucus membranes, Pharynx nl
RESPIRATORY: Regular respirations, nonlabored, lungs clear.
CARDIOVASCULAR: Regular rate and rhythm, no murmurs, no rubs.
GI: Soft, nontender, normal BS
MUSCULOSKELETAL: Limited ROM of left hip due to pain. Distal N/V intact. Well perfused. No edema.
SKIN: Warm, dry, pink
PSYCH: Normal mood and affect. Well kept, interactive and appropriate
NEUROLOGIC: Awake, alert and oriented. No focal neurological deficits
Injury Course
Orders/Labs/Results
Orders:
Orders
08/29/24 13:37
CR Hip - LT w/wo Pel 2-3 Vw* Urgent
Comment:
Reason For Exam: fall
Include a pelvis x-ray?: Yes
08/29/24 Dinner
Regular
At Your Request: Full Participation
08/29/24 16:33
CT Head W/o Iv Contrast Urgent
Comment:
Reason For Exam: fall, head impact on Eliquis, no neuro deficits
08/29/24 16:41
Acetaminophen [Tylenol] 650 mg PO NOW STA
08/29/24 16:43
CT Cervical Spine W/o Iv Contr Urgent
Comment:
Reason For Exam: fall, head injury, left neck pain
08/29/24 17:27
Complete Blood Count/With Diff Urgent
Comprehensive Metabolic Panel Urgent
08/29/24 17:36
HYDROmorphone [Dilaudid] 0.5 mg IV NOW STA
08/29/24 17:39
ORTHOPEDIC CONSULT Urgent
Consulting Provider: Dmitry Monique
Was physician already notified: Yes
Reason for consult: L hip fracture.
08/29/24 17:50
Ondansetron Injectable [Zofran] 4 mg IV NOW STA
08/29/24 17:51
Electrocardiogram (*1) Urgent
Reason for Study: PreOp
EKG- Treatment ONCE
Ondansetron Injectable [Zofran] 4 mg .ROUTE .STK-MED ONE
08/29/24 18:16
Admit/Transfer Patient As Directed
Co-Sign Provider:
Level of Care: Inpatient admission
Assign to:: Medical/Surgical
Physician / Group: John
Diagnosis: Left hip fracture
Reason for Hospitalization: Orthopedic surgery, pain control
Expected length of stay greater than two midnights?: Yes
ELOS- Estimated Length of Stay in days: 3
I certify the patient meets the requirements for IP care: Yes
PRN Pain Medication Management As Directed
May give lesser potent ordered pain med per pt: Yes
preference::
Protocol:: Medication orders for pain may be administered in a
manner that supports deferring to patient preference
when the pt is:
- Requesting an ordered lesser potent pain medication.
Least to most potent pain medications are defined
as: acetaminophen < NSAID < tramadol < opioids
(morphine, oxycodone, hydromorphone).
- Requesting a lesser dose of the same medication IF
ORDERED.
- Requesting a less intrusive route of administration
if both routes are prescribed by the provider (PO <
IV).
08/29/24 18:18
Code Status As Directed
Resuscitation Status: Do not resuscitate
Reached after discussion with pt or family/Healthcare POA: Yes
DNR Bracelet Application ONCE
08/29/24 19:47
Acetaminophen [Tylenol] 650 mg PO Q4HPRN PRN
HYDROmorphone [Dilaudid] 0.5 mg IV Q4HPRN PRN
Lactated Ringers [Lr] 1,000 ml IV 75 mls/hr
Loperamide [Imodium] 2 mg PO DAILYPRN PRN
Lorazepam [Ativan] 0.5 mg PO BIDPRN PRN
Ondansetron Injectable [Zofran] 4 mg IV Q6HPRN PRN
Sennosides [Senokot] 8.6 mg PO HSPRN PRN
olopatadine 1 drop BOTH EYES DAILYPRN PRN
08/29/24 19:47
Activity As Directed
Activity Level: Bedrest
Sequential Compression Device [Pneumatic Compression Sleeves] As Directed
Type: Knee high
DX Deep Vein Thrombosis Video Routine
08/29/24 20:00
Polyethylene Glycol Powder [Miralax] 17 grams PO BID
08/29/24 22:00
Citalopram [Celexa] 10 mg PO HS
Citalopram [Celexa] 40 mg PO HS
Docusate Sodium [Colace] 100 mg PO HS
08/30/24 Breakfast
NPO
Allow oral meds: Yes
Allow clear liquids: Sips of Clears
08/30/24 08:00
Pantoprazole [Protonix] 40 mg PO DAILY
Abnormal Lab Results
08/29/24
17:27
WBC 13.5 H 10^3/uL
(4.8-10.8)
RBC 3.95 L 10^6/uL
(4.20-5.40)
MCH 31.4 H pg
(27.0-31.0)
Abs Immat Gran (auto) 0.1 H 10^3/uL
(0-0.05)
Absolute Neuts (auto) 11.3 H 10^3/uL
(1.4-6.5)
Absolute Lymphs (auto) 1.1 L 10^3/uL
(1.2-3.4)
Absolute Monos (auto) 0.9 H 10^3/uL
(0.1-0.6)
Immature Gran % 0.6 H %
(0-0.5)
Neutrophils % 83.7 H %
(42.2-75.2)
Lymphocytes % 8.3 L %
(20.5-51.1)
Chloride 108 H mmol/L
(98-107)
BUN 26 H mg/dl
(7-17)
Creatinine 1.2 H mg/dL
(0.6-1.0)
Glucose 117 H mg/dl
(70-99)
08/29/24 17:27
08/29/24 17:27
MDM/Problems Addressed
Differential Diagnosis Includes:
Hip sprain/fracture
Head bleed, contusion, neck ST injury vs cervical spine fx
MDM/Problems Addressed:
84 yo female form [facility], hx of DVT on Eliquis, HTN, HLD, GERD, anemia, Anxiety/Depression, presents for fall in her room, states she lost her balance reaching over for a tissue. She did hit the left side of her head, no LOC, denies H/A,
mild left neck soreness, pain left hip. Denies n/v/d/c. Denies CP, SOB or abdominal pain.
Afebrile, NAD
4:20 PM:
X-ray left hip reveals a nondisplaced impacted subcapital left femoral neck fracture.
Patient given Tylenol for pain
5:30 PM:
Head CT radiology report read: No acute finding.
C-spine CAT scan radiology report read: No acute finding
Requesting something more for pain. No improvement in pain after Tylenol. Dilaudid ordered
Hospitalist notified of admission, ortho consult in.
5:50 PM: CBC, CMP noted
Chronic conditions affecting care: HTN and Other (DVT on Eliquis)
*Critical Care Note
Total Time (30-74mins, 75-104mins- exclusive of procedures): Not Applicable
ED Attending Note
-
Portions of this chart may have been created with voice recognition software.� Occasional wrong word or��sound alike� substitutions may have occurred due to the inherent limitations of voice recognition software.
Discharge Plan
Departure
Patient Disposition: Admit
Date of Disposition: 08/29/24
Time of Disposition: 17:39
Admit to: Med/Surg
Presentation/result/management discussed w/ accepting MD/DO: Hospitalist
Condition: Fair
Discharge Problem:
Fall from slip, trip, or stumble, Closed fracture of left hip
Interventions
Interventions:
*Risk Screen - Suicide Last Done: 08/29/24 13:40
*General Assessment Last Done: 08/29/24 17:34
*Neglect/Abuse Screening Last Done: 08/29/24 13:40
*ED COVID-19 Vaccine History Last Done: 08/29/24 17:34
ED-Musculoskeletal Assessment Last Done: 08/29/24 16:01
ED- Neurological Assessment Last Done: 08/29/24 16:01
ED-Skin Assessment Last Done: 08/29/24 16:01
[2024-08-29] MEDS: TYLENOL 650 MG PO (17:09)
--- NOTE | 2024-08-29 17:09 | EDRN ---
Pt's stretcher moved to back ER stretcher room to offer privacy when changing patient into hospital gown. IV placed to RAC, pt tolerated well. Pt moved back to hallway 41A, Pt's daughter at bedside with patient.
[2024-08-29 17:43] LABS: % Basophils 0.1 % (0-2); % Eosinophils 0.4 % (0-6); % Immature Granulocytes 0.6 % (0-0.5); % Lymphocytes 8.3 % (20.5-51.1); % Monocytes 6.9 % (1.7-9.3); % Neutrophils 83.7 % (42.2-75.2); Absolute Eosinophils 0.1 10^3/uL (0-0.7); Absolute Immature Granulocytes 0.1 10^3/uL (0-0.05); Absolute Lymphocytes 1.1 10^3/uL (1.2-3.4); Absolute Monocytes 0.9 10^3/uL (0.1-0.6); Absolute Neutrophils 11.3 10^3/uL (1.4-6.5); Hematocrit 37.4 % (37.0-47.0); Hemoglobin 12.4 g/dL (12.0-16.0); Mean Corp Hgb Conc. 33.2 g/dL (33.0-37.0); Mean Corpuscular Hgb 31.4 pg (27.0-31.0); Mean Corpuscular Volume 94.7 fL (81.0-99.0); Mean Platelet Volume 8.8 fL (7.4-10.4); Nucleated Red Blood Cells % 0 %; Platelet Count 323 10^3/uL (130-400); Red Blood Cell Count 3.95 10^6/uL (4.20-5.40); Red Cell Dist. Width 12.6 % (11.5-14.5); White Blood Cell Count 13.5 10^3/uL (4.8-10.8)
[2024-08-29] MEDS: DILAUDID 0.5 MG IV ×2 (17:45→21:10)
[2024-08-29 17:46] LABS: ALT (SGPT) 20 U/L (0-35); AST (SGOT) 20 U/L (14-36); Albumin 3.8 g/dl (3.5-5.0); Alkaline Phosphatase 89 U/L (38-126); Blood Urea Nitrogen 26 mg/dl (7-17); Calcium 9.7 mg/dl (8.4-10.2); Carbon Dioxide 26 mmol/L (22-30); Chloride 108 mmol/L (98-107); Glucose 117 mg/dl (70-99); Potassium 4.5 mmol/L (3.5-5.1); Sodium 141 mmol/L (135-145); Total Bilirubin 0.6 mg/dl (0.2-1.3); Total Protein 6.6 g/dl (6.3-8.2); eGFR 44.36
[2024-08-29] MEDS: ZOFRAN 4 MG IV (17:52)
--- NOTE | 2024-08-29 18:21 | HPS.HSE ---
Family Physician
-
Family Physician: NOT KNOW UNKNOWN - PT DOES
Chief Complaint
-
Left hip pain
History of Present Illness
84-year-old female sustained a fall in her assisted living facility and subsequent left hip fracture. No loss of consciousness but did have a head strike. We were asked to admit her to the hospital.
She is a relatively poor historian. Daughter provided all history.
Medical History
Past Medical History
Past Medical History: Reports Other
Additional Past Medical History:
History of stroke
SVT
Left lower extremity DVT after stroke
GERD
Spinal stenosis
Depression/anxiety
Hemorrhoids
Hyperlipidemia
Past Surgical History: Reports Tonsilectomy and Other
Additional Past Surgical History:
Right lower extremity vein stripping
Social History
Tobacco: Non-smoker
Alcohol: None
Drug: None
Living: Assisted Living
Family History
Family History: Not pertinent
Allergies / Home Medications
Allergies reflects when Allergies were last updated in [facility].
Home Medications with original date entered in [facility]
Allergy/Medication List:
Allergies
Allergy/AdvReac Type Severity Reaction Status Date / Time
aspirin [From Aggrenox] Allergy Nausea / Verified 08/29/24 13:41
Vomiting
Cephalosporins Allergy Unknown-tolerated Verified 08/29/24 16:41
cephalexin
in 2023
dipyridamole [From Aggrenox] Allergy Nausea / Verified 08/29/24 13:41
Vomiting
loratadine Allergy Unknown Verified 08/29/24 13:41
Penicillins Allergy Unknown-tolerated Verified 08/29/24 16:41
cephalexin
in 2023
potassium Allergy Unknown Verified 08/29/24 13:41
[id number] Reductase Allergy Unknown Verified 08/29/24 13:41
Inhibitor
Sulfa (Sulfonamide Allergy Unknown Verified 08/29/24 13:41
Antibiotics)
Home Medications
acetaminophen 325 mg tablet 650 mg PO Q4HPRN PRN mild pain 11/19/22
evolocumab 140 mg/mL subcutaneous pen injector (Repatha SureClick) 140 mg SC MONTHLY High Cholesterol 11/19/22
docusate sodium 100 mg capsule 100 mg PO HS Constipation 04/16/23
pantoprazole 40 mg tablet,delayed release (Protonix) 40 mg PO DAILY Gastrointestinal Issue 04/16/23
sennosides 8.6 mg tablet (senna) 8.6 mg PO HSPRN PRN constipation 06/12/23
apixaban 2.5 mg tablet (Eliquis) 2.5 mg PO BID #0 tabs 06/24/23
citalopram 10 mg tablet 10 mg PO HS 08/29/24
citalopram 40 mg tablet 40 mg PO HS 08/29/24
dextromethorphan-guaifenesin 5 mg-100 mg/5 mL oral liquid 10 ml PO DAILYPRN PRN cough 08/29/24
fluticasone propionate 50 mcg/actuation nasal spray,suspension 2 spray intranasal DAILYPRN PRN allergies 08/29/24
hydrocortisone 2.5 % topical cream with perineal applicator 1 applic UT TID 08/29/24
loperamide 2 mg capsule 2 mg PO DAILYPRN PRN loose stool 08/29/24
lorazepam 0.5 mg tablet 0.5 mg PO BIDPRN PRN anxiety 08/29/24
olopatadine 0.2 % eye drops 1 drp BOTH EYES DAILYPRN PRN allergies 08/29/24
polyethylene glycol 3350 17 gram oral powder packet (Miralax) 17 g PO BID 08/29/24
witch rory 50 % topical pads (Tucks (witch rory)) 1 pad topical QIDPRN PRN hemorrhoid pain 08/29/24
Review of Systems
-
History Source: Patient and Family
A 12 point ROS was completed and negative except as noted: Yes
Physical Exam
Vital Signs
Vital Signs
Temp Pulse Resp BP Pulse Ox
99.4 F 85 16 163/89 98
08/29/24 17:33 08/29/24 13:40 08/29/24 13:40 08/29/24 13:40 08/29/24 13:40
Physical Exam
General: Well Developed, Well Nourished, Appears in Distress and Pain
HEENT: NormoCephalic, Anicteric and Moist mucous membranes
Respiratory: Clear
Cardiac: S1/S2 and Regular Rhythm
Breast: Deferred by me
GI: Soft, Non Tender and Non Distended
Genito-urinary: Deferred by me
Musculoskeletal: No Clubbing, No Cyanosis and No Edema
Skin: Warm and Dry
Neuro: Awake and Alert
Hematologic/Lymphatic: No Lymphadenopathy
Psych: Calm
Laboratory Results
-
08/29/24 17:27
08/29/24 17:27
Laboratory Results
Total Bilirubin 0.6 mg/dl (0.2-1.3) 08/29/24 17:27
AST 20 U/L (14-36) 08/29/24 17:27
ALT 20 U/L (0-35) 08/29/24 17:27
Alkaline Phosphatase 89 U/L (38-126) 08/29/24 17:27
Impression/Plan
-
Acute traumatic left femoral neck fracture -due to fall, underlying osteoporosis. [facility] Consult [facility]opedics. Check preoperative EKG.
N.p.o. after midnight anticipating surgery tomorrow. Hold Eliquis. Discussed with Dr. Monique.
History of strokes -daughter denies history of atrial fibrillation.
History of DVT -roughly 6 years ago after a stroke. Unclear why she is still on Eliquis. Will defer to PCP. Hold Eliquis in preparation for orthopedic surgery.
DNR -confirmed with patient's daughter.
[2024-08-29 18:45] VITALS: BP 131/71
[2024-08-29 19:35] VITALS: BP 135/76; BMI 25.2
[2024-08-29] MEDS: LR 1000 IV (20:06)
--- NOTE | 2024-08-29 21:44 | W.PN.UPDATE ---
Update Note
Progress Note Update
Full orthopedic consult dictated:
Dx: Left hip impacted femoral neck fracture
Plan: Left hip hemiarthroplasty 08/30 w/ Dr Monique. NPO after MN, antibiotics rehabilitation worker to OR and TXA irrigation.
[2024-08-29 23:42] VITALS: BP 125/71
[2024-08-30] VITALS (11 sets, daily range): BP systolic 94–160; BP diastolic 56–92
--- NOTE | 2024-08-30 00:45 | PTCARENOTE ---
Pt. received from ED, coming in from [facility] assisted living after a fall. Family at bedside and able to provide pt. information. Pt. oriented to room. Bed alarm in place, call montes in reach, bed in lowest position. VSS at time of admission. Pt. is
to be NPO at 0000 for possible surgery in AM. PRN pain medicine administered as ordered. Pt. is resting comfortably at this time. Plan of care ongoing.
[2024-08-30] MEDS: DILAUDID 0.5 MG IV (03:11)
[2024-08-30] MEDS: PROTONIX 40 MG PO (08:07)
--- NOTE | 2024-08-30 10:52 | CM ---
Addendum entered by Stephany Beard 08/30/24 16:26:
Patient transferred to IMU.
Original Note:
Patient out of room to surgery, CM will meet with family to confirm ability/ plan to return to [facility] when available.
--- NOTE | 2024-08-30 11:27 | OR.RPT ---
Operative Report
Operative Report
Orthopaedic Surgery Operative Note
DATE OF OPERATION: 08/30/2024
PREOPERATIVE DIAGNOSES: Displaced femoral neck fracture, left
POSTOPERATIVE DIAGNOSES: Same
OPERATION PERFORMED: Left hip hemiarthroplasty
SURGEON: Dmitry Monique MD
CASE MANAGEMENT SOCIAL WORKER: Kobe Johnson PA-C who helped with patient and limb positioning and retraction
ANESTHESIA: General
COMPLICATIONS: None.
ESTIMATED BLOOD LOSS: 50 mL.
DRAINS: None
SPECIMEN: None
FINDINGS: Displaced fracture of the femoral neck
IMPLANTS: Deepak [employer] stem size 13 extended offset, Size 43 Endo unipolar head, DJO bone cement, small cement restrictor, distal centralizer
INDICATIONS: The patient presented to the emergency department after a fall sustained one day prior with new onset hip pain. Xrays showed a displaced femoral neck fracture. I discussed treatment options with the patient and discussed that based on
the degree of displacement that fixation of the fracture may have a high risk of complication and failure. I discussed surgical treatment with arthroplasty. Based on the patient's age and activity level, shared decision was to proceed with
hemiarthroplasty. I reviewed the risks, benefits, and alternatives of various treatment options. The patient understood the risks which included, but were not limited to, bleeding, infection, failure to relieve pain, more pain than preop, damage to
blood vessels and nerves, need for reoperation, mechanical failure of the implants, wound healing problems, stiffness, instability, blood clot, pulmonary embolism, myocardial infarction, pneumonia, arrhythmia, CVA, and . The patient accepted
these risks and wished to proceed. All questions were answered, and informed consent was obtained.
PROCEDURE IN DETAIL:
The patient was identified in the preoperative holding area. The left hip was identified as the operative site. The patient was taken in the operating room and transferred to the operative table. General anesthesia was performed. IV antibiotics and
tranexamic acid were administered. The patient was placed in the lateral position with Stulberg hip positioners. Axillary roll was placed. The down leg was well padded. All bony prominences were well padded. The operative limb was prepped and draped
in the usual sterile fashion.
Time out was performed. A posterolateral approach to the hip was used. The skin incision was centered over the greater trochanter. This was taken down sharply through subcutaneous tissues. Meticulous hemostasis was achieved throughout the case with
electrocautery. We split the fascia merritt in line with skin incision. I split the gluteus glo bluntly. We cauterized all crossing vessels as we split it. I palpated the sciatic nerve and made sure it was well posterior in the operative field. It
was protected throughout the case.
The posterior anatomy was distorted due to fracture hematoma and swelling. I performed a partial bursectomy to identify the short external rotators. The gluteus medius and minimus were identified and retracted anteriorly. I incised the piriformis
tendon and conjoint tendon at their insertions. These were tagged for later repair. I then performed a trapezoidal capsulotomy. The edges were tagged for later repair.
The femoral neck fracture was identified. The leg was flexed and internally rotated, and a fresh femoral neck cut was performed. The femur was translated anteriorly. Care was taken to preserve the labrum. The femoral head was carefully removed with
a briseno and a tenaculum. The head measured to be 43mm. The acetabulum was inspected and noted not to have marked degenerative changes. A trial head was placed in the acetabulum and size 43 had appropriate fit and suction fit.
Attention was turned to the femur. Box osteotome and Charnley awe were used to open the canal. The femur was sequentially broached to size 13 which had appropriate fit and fill. A trial head was placed with extended offset neck and the hip was
reduced. Leg length and offset were checked and found to be appropriate. The hip was taken through complete range of motion and found to be stable in extension, the position of sleep, and at 90 degrees of flexion and internal rotation.
Trials were removed and the femoral canal was prepared with irrigation and ribbon gauze packing sequentially. A cement restrictor was placed into the femoral canal 1cm distal to the tip of the femoral stem. This was measured off the trial femoral
stem. Once the femoral canal was prepared, the cement was mixed. Once doughy in consistency, the cement was pressurized into the canal with a cement gun. The stem was then carefully inserted into the canal with care to minimize rotation or
micromotion. Excess cement was removed. Once the cement was polymerized, the joint was irrigated copiously. The acetabulum was inspected to be free of cement particles and other debris. The final head was impacted onto clean and dry trunion and the
hip was reduced. Leg length and stability were checked again and found to be acceptable. The sciatic nerve was inspected and noted to be free of tension and uninjured.
A dilute betadine soak was performed for approximately 3 minutes, and then the hip was copiously irrigated. I repaired the capsule, piriformis, and conjoint tendon with #2 Ethibond to drill holes in the greater trochanter. Local anesthetic was
injected. The fascia merritt was closed with #1 PDS in running fashion. The subcutaneous tissues were closed with 2-0 PDS in running fashion. The skin was reapproximated with 3-0 Monocryl subcuticular suture. I placed a Prineo dressing followed by a
Mepilex Ag dressing. The patient awoke from anesthesia without difficulty. Sponge and instrument counts were correct x2 at the end of the case.
I was present and participated in the entire procedure. The patient was sent to the recovery room in stable condition.
Van Monique MD
--- NOTE | 2024-08-30 11:31 | W.PN.UPDATE ---
Update Note
Progress Note Update
I evaluated the patient at bedside and agree with the above consultation note by Kobe Johnson PA-C. 84-year-old female presents after a fall at her residence 1 day ago. She had left leg pain and difficulty weightbearing. She is brought to the
emergency department where she was noted to have a femoral neck fracture. On exam the patient is resting comfortably in bed with pain with passive and active hip motion. Skin is intact. Motor and sensation are intact distally. I discussed with
the patient treatment options including ORIF versus hemiarthroplasty. We discussed given her age and some displacement, we discussed arthroplasty is more predictabe way to help improve her pain and function. We discussed complications associated
with ORIF in octogenarians. Shared decision was to proceed with left hip hemiarthroplasty.
[2024-08-30] MEDS: NSS 1000 IV (12:42)
--- NOTE | 2024-08-30 13:30 | W.PN.HOSP.TC ---
Today's Communication/Plan
-
Chest x-ray
Oxygen as needed
Resume diet when more awake
PT/OT
Assessment / Plan
Assessment / Plan
Gen-awake, not fully alert, NAD
HEENT-NC, AT, anicteric, clear oral mm
Neck-supple
CV-reg, no M, +S1/S2
Lungs-clear B/L
Abd-soft, NT, ND
Ext-no edema
Musculoskeletal-no cyanosis, clubbing
Skin-warm and dry, left lateral hip incision intact with dressing
Neuro-grossly non-focal
Psych-calm, cooperative
Acute traumatic left femoral neck fracture -due to fall, underlying osteoporosis. Stable after left hip hemiarthroplasty 08/30.
Resume diet.
Orthopedics okay with resuming Eliquis tonight for VTE prophylaxis. Recommend using for the next 30 days.
Acute postoperative respiratory failure - requiring nonrebreather mask, transitioned to 10 L nasal cannula oxygen. Check CXR. Differential diagnosis includes anesthesia effect, aspiration, less likely pneumonia or pulmonary embolism, pulmonary
edema. Updated orthopedics.
History of strokes -daughter denies history of atrial fibrillation. Apparently the stroke happened in [place], no records available. Defer to PCP to decide regarding need for long-term anticoagulation.
History of DVT -roughly 6 years ago after a stroke. Unclear why she is still on Eliquis. Will defer to PCP.
Chronic spinal stenosis
Hyperlipidemia
GERD/hiatal hernia
DNR -confirmed with patient's daughter.
Anticipated Discharge: 24 - 48 hours
Subjective/Interval History
-
Date of Service: August 30, 2024
Patient seen and examined. No complaints.
Objective Data
-
Vital Signs:
Vital Signs
Temp Pulse Resp BP Pulse Ox
97.4 F 95 14 113/67 92
08/30/24 13:00 08/30/24 13:00 08/30/24 13:00 08/30/24 13:00 08/30/24 13:00
I&O
08/29/24 08/30/24 08/31/24
06:59 06:59 06:59
Intake Total 1065 / 1065 50 / 50
Output Total 100 / 100
Balance 965 / 965 50 / 50
Review of Systems
-
History Source: Patient
All other systems: Reviewed and negative
[2024-08-30 13:37] LABS: Glucose - Point of Care 137 mg/dl (70-99)
--- NOTE | 2024-08-30 13:54 | CON.NEURO ---
Consultation
Order
Date of Consultation: 08/30/24
Requesting Provider: Surinder Lopez DO
Reason for Consult: Seizure
Neurology Consultation Note.
HPI: This is an 84-year-old woman who presented to [facility] on 08/29/2024 status post fall with resultant left femoral neck fracture. Neurology consultation was requested for an evaluation of seizure.
According to medical personnel the patient was witnessed to have staring and right arm rhythmic movements lasting for less than 1 minute shortly after she arrived from the OR hypoxic requiring up to 10 L of oxygen.
The patient had recurrent seizure at CT scan and was unable to complete repeat CT.
The patient received 0.6 mg of hydromorphone in addition to fentanyl 100 mcg as well as Sugammadex during the surgery.
Labs: WBCs�13.5, glucose�117, creatinine�1.2.
PDMP: Lorazepam 0.5 Mg 60 tablets filled in on 04/01/2025
[address] head wo contrast(08/29/2024)�chronic right MCA territory, left basal ganglia and right thalamic infarcts.
PMH: R MCA stroke(2013), h/o DVT, CKD, SVT, spinal stenosis, scoliosis, hiatal hernia, MDD, JAYA, osteoporosis, ambulatory dysfunction
PSH: Left hip hemiarthroplasty, Penicillin, tonsillectomy,
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
FH: Sister�stroke.
All: Aspirin, dipyridamole, penicillins, statins, sulfas, cephalosporins
ROS: Positive for perioral blood
General: in moderate distress, intermittent vocalization
Cardio: Tachycardic
Neuro:
Mental Status: Eyes open. Intermittent right lateral gaze deviation. Does not attend to follow requests
Cranial Nerves: Pupils are equally round, nonreactive. No blink to threat. Clear facial weakness
Motor: Increased motor tone left greater than right no movements with stimulation
Reflexes: Moderate exam due to increased motor tone
Sensory: Does not localize noxious stimuli
Coordination: Left arm flexion. No abnormal movements
Gait: deferred
Assessment and Plan:
I. Status epilepticus, likely provoked by hypoxia.
II. Chronic R MCA stroke
III. S/p fall
-Continue Telemetry monitoring
-Aspiration precautions
-Avoid hypoxia.
-Ativan 2 mg IV as needed for GTC's, Keppra load
-CT head without jaya
-Start Versed drip after intubation if no clinical improvement
-Case was discussed with patient's daughter and son who had agreed for intubation.
-DVT prophylaxis.
I personally reviewed all radiology and labs along with past medical records pertinent to current medical problems. Total time spent in patient care is 60 minutes.
Thank you for allowing us to participate in the care of this patient. We will continue to follow. Please do not hesitate to contact us with any questions or concerns.
Subjective/Objective
Subjective Data
Date of Service: August 30, 2024
Objective Data
Vital Signs
Temp Pulse Resp BP Pulse Ox
36.3 C 95 14 113/67 92
08/30/24 13:00 08/30/24 13:00 08/30/24 13:00 08/30/24 13:00 08/30/24 13:00
Lab Results
08/29/24 17:27
08/29/24 17:27
Sodium 141 mmol/L (135-145) 08/29/24 17:27
Potassium 4.5 mmol/L (3.5-5.1) 08/29/24 17:27
BUN 26 mg/dl (7-17) H 08/29/24 17:27
Glucose 117 mg/dl (70-99) H 08/29/24 17:27
Calcium 9.7 mg/dl (8.4-10.2) 08/29/24 17:27
Patient Allergies
aspirin [From Aggrenox] Allergy (Verified 08/29/24 13:41)
Nausea / Vomiting
Cephalosporins Allergy (Verified 08/29/24 16:41)
Unknown-tolerated cephalexin in 2023
dipyridamole [From Aggrenox] Allergy (Verified 08/29/24 13:41)
Nausea / Vomiting
loratadine Allergy (Verified 08/29/24 13:41)
Unknown
Penicillins Allergy (Verified 08/29/24 16:41)
Unknown-tolerated cephalexin in 2023
potassium Allergy (Verified 08/29/24 13:41)
Unknown
Akrltrb-XMF-[id number] Reductase Inhibitor Allergy (Verified 08/29/24 13:41)
Unknown
Sulfa (Sulfonamide Antibiotics) Allergy (Verified 08/29/24 13:41)
Unknown
Medications
-
Active Medications
Generic Name Dose Route Start Last Admin
Trade Name Freq PRN Reason Stop Dose Admin
Acetaminophen 650 mg 08/29/24 19:47
Acetaminophen 325 Mg Tablet PO 09/26/24 19:46
Q4HPRN PRN
mild pain
Al Hydrox/Mg Hydrox/Simethicone 30 ml 08/30/24 09:12
Mag/Al/Simethicone Suspension 30 Ml Cup PO 09/27/24 09:11
Q4HPRN PRN
INDIGESTION
Apixaban 2.5 mg 08/30/24 20:00
Apixaban (Eliquis) 2.5 Mg Tablet PO 09/27/24 19:59
BID LILY
Citalopram Hydrobromide 40 mg 08/29/24 22:00 08/29/24 21:18
Citalopram 40 Mg Tablet PO 09/26/24 21:59 Not Given
HS LILY
Citalopram Hydrobromide 10 mg 08/29/24 22:00 08/29/24 21:19
Citalopram 10 Mg Tablet PO 09/26/24 21:59 Not Given
HS LILY
Docusate Sodium 100 mg 08/29/24 22:00 08/29/24 21:19
Docusate Sodium 100 Mg Capsule PO 09/26/24 21:59 Not Given
HS LILY
Hydromorphone HCl 0.5 mg 08/29/24 19:47 08/30/24 03:11
Hydromorphone 0.5 Mg/0.5 Ml Syringe IV 09/12/24 19:46 0.5 mg
Q4HPRN PRN Administration
severe pain
Hydromorphone HCl 0.25 mg 08/30/24 08:30
Hydromorphone 0.25 Mg/0.5 Ml Syringe IV 08/31/24 08:30
PACU-Q5MPRN PRN
severe pain
Parenteral Electrolytes 1,000 mls @ 100 mls/hr 08/30/24 08:30
Normosol-R/Plasmalyte-A IV 08/31/24 08:30
PER PROTOCOL LILY
Sodium Chloride 1,000 mls @ 100 mls/hr 08/30/24 09:15 08/30/24 12:42
Nss IV 08/30/24 19:14 1,000 mls
.Q10H LILY Administration
Cefazolin Sodium 1 gram in 5 mls @ 60 mls/hr 08/30/24 18:00
Ancef IV 08/31/24 02:04
Q8H LILY
Loperamide HCl 2 mg 08/29/24 19:47
Loperamide 2 Mg Capsule PO 09/26/24 19:46
DAILYPRN PRN
loose stool
Lorazepam 0.5 mg 08/29/24 19:47
Lorazepam 0.5 Mg Tablet PO 09/26/24 19:46
BIDPRN PRN
anxiety
Magnesium Hydroxide 30 ml 08/30/24 09:12
Milk Of Magnesia 30 Ml Cup PO 09/27/24 09:11
DAILYPRN PRN
constipation
Morphine Sulfate 1 mg 08/30/24 08:30
Morphine 2 Mg/Ml Syringe IV 08/31/24 08:30
PACU-Q5MPRN PRN
moderate pain
Mupirocin 0 applic 08/30/24 20:00
Mupirocin 2% (Ointment) 22 Gram Tube NASAL 08/31/24 20:01
BID LILY
Non-Formulary Medication 1 drop 08/29/24 19:47
Olopatadine BOTH EYES
DAILYPRN PRN
allergies
Ondansetron HCl 4 mg 08/29/24 19:47
Ondansetron 4 Mg/2 Ml Vial IV 09/26/24 19:46
Q6HPRN PRN
NAUSEA/VOMITING
Ondansetron HCl 4 mg 08/30/24 08:30
Ondansetron 4 Mg/2 Ml Vial IV 08/31/24 08:30
PACU-ONCEPRN PRN
nausea/vomiting
Oxycodone HCl 10 mg 08/30/24 09:12
Oxycodone 10 Mg Regular Release Tablet PO 09/13/24 09:11
Q4HPRN PRN
severe pain
Oxycodone HCl 5 mg 08/30/24 09:12
Oxycodone 5 Mg Regular Release Tablet PO 09/13/24 09:11
Q4HPRN PRN
moderate pain
Oxycodone HCl 2.5 mg 08/30/24 09:12
Oxycodone 5 Mg Regular Release Tablet PO 09/13/24 09:11
Q4HPRN PRN
mild pain
Pantoprazole Sodium 40 mg 08/30/24 08:00 08/30/24 08:07
Pantoprazole 40 Mg Delayed Release Tablet PO 09/27/24 07:59 40 mg
DAILY LILY Administration
Polyethylene Glycol 17 grams 08/29/24 20:00 08/30/24 08:07
Polyethylene Glycol Powder 17 Grams Packet PO 09/26/24 19:59 Not Given
BID LILY
Prochlorperazine Maleate 5 mg 08/30/24 09:12
Prochlorperazine 5 Mg Tablet PO 09/27/24 09:11
Q6HPRN PRN
nausea/vomiting
Sennosides 8.6 mg 08/29/24 19:47
Sennosides (Senokot) 8.6 Mg Tablet PO 09/26/24 19:46
HSPRN PRN
constipation
Sodium Chloride 0 flush 08/29/24 20:00
Sodium Chloride 0.9% (Flush) Syringe IV 09/26/24 19:59
PER PROTOCOL LILY
Tamsulosin HCl 0.4 mg 08/30/24 09:12
Tamsulosin 0.4 Mg Capsule PO 09/27/24 09:11
DAILYPRN PRN
bladder scan volume > 400 mL
Home Medications
�Medication �Instructions �Recorded
acetaminophen 325 mg tablet 650 mg PO Q4HPRN PRN mild pain 11/19/22
evolocumab 140 mg/mL subcutaneous 140 mg SC MONTHLY High Cholesterol 11/19/22
pen injector (Repathalondra Raglandick)
docusate sodium 100 mg capsule 100 mg PO HS Constipation 04/16/23
pantoprazole 40 mg tablet,delayed 40 mg PO DAILY Gastrointestinal 04/16/23
release (Protonix) Issue
sennosides 8.6 mg tablet (senna) 8.6 mg PO HSPRN PRN constipation 06/12/23
apixaban 2.5 mg tablet (Eliquis) 2.5 mg PO BID #0 tabs 06/24/23
citalopram 10 mg tablet 10 mg PO HS Depression 08/29/24
citalopram 40 mg tablet 40 mg PO HS Depression 08/29/24
dextromethorphan-guaifenesin 5 10 ml PO DAILYPRN PRN cough 08/29/24
mg-100 mg/5 mL oral liquid
fluticasone propionate 50 2 spray intranasal DAILYPRN PRN 08/29/24
mcg/actuation nasal allergies
spray,suspension
hydrocortisone 2.5 % topical cream 1 applic DE TID Skin Issues 08/29/24
with perineal applicator
loperamide 2 mg capsule 2 mg PO DAILYPRN PRN loose stool 08/29/24
lorazepam 0.5 mg tablet 0.5 mg PO BIDPRN PRN anxiety 08/29/24
olopatadine 0.2 % eye drops 1 drp BOTH EYES DAILYPRN PRN 08/29/24
allergies
polyethylene glycol 3350 17 gram 17 g PO BID Constipation 08/29/24
oral powder packet (Miralax)
witch rory 50 % topical pads 1 pad topical QIDPRN PRN 08/29/24
(Tucks (witch rory)) hemorrhoid pain
Vital Signs and Labs
-
Vital Signs and Labs:
Vital Signs
Temp Pulse Resp BP Pulse Ox
36.3 C 95 14 113/67 92
08/30/24 13:00 08/30/24 13:00 08/30/24 13:00 08/30/24 13:00 08/30/24 13:00
Lab Results
08/30/24 13:54
08/30/24 13:54
Sodium 142 mmol/L (135-145) 08/30/24 13:54
Potassium 4.6 mmol/L (3.5-5.1) 08/30/24 13:54
BUN 29 mg/dl (7-17) H 08/30/24 13:54
Glucose 147 mg/dl (70-99) H 08/30/24 13:54
Calcium 9.2 mg/dl (8.4-10.2) 08/30/24 13:54
Medications
-
Medications:
Generic Name Dose Route Start Last Admin
Trade Name Freq PRN Reason Stop Dose Admin
Acetaminophen 650 mg 08/29/24 19:47
Acetaminophen 325 Mg Tablet PO 09/26/24 19:46
Q4HPRN PRN
mild pain
Al Hydrox/Mg Hydrox/Simethicone 30 ml 08/30/24 09:12
Mag/Al/Simethicone Suspension 30 Ml Cup PO 09/27/24 09:11
Q4HPRN PRN
INDIGESTION
Apixaban 2.5 mg 08/30/24 20:00
Apixaban (Eliquis) 2.5 Mg Tablet PO 09/27/24 19:59
BID LILY
Citalopram Hydrobromide 40 mg 08/29/24 22:00 08/29/24 21:18
Citalopram 40 Mg Tablet PO 09/26/24 21:59 Not Given
HS LILY
Citalopram Hydrobromide 10 mg 08/29/24 22:00 08/29/24 21:19
Citalopram 10 Mg Tablet PO 09/26/24 21:59 Not Given
HS LILY
Docusate Sodium 100 mg 08/29/24 22:00 08/29/24 21:19
Docusate Sodium 100 Mg Capsule PO 09/26/24 21:59 Not Given
HS LILY
Hydromorphone HCl 0.5 mg 08/29/24 19:47 08/30/24 03:11
Hydromorphone 0.5 Mg/0.5 Ml Syringe IV 09/12/24 19:46 0.5 mg
Q4HPRN PRN Administration
severe pain
Hydromorphone HCl 0.25 mg 08/30/24 08:30
Hydromorphone 0.25 Mg/0.5 Ml Syringe IV 08/31/24 08:30
PACU-Q5MPRN PRN
severe pain
Sodium Chloride 1,000 mls @ 100 mls/hr 08/30/24 09:15 08/30/24 12:42
Nss IV 08/30/24 19:14 1,000 mls
.Q10H LILY Administration
Cefazolin Sodium 1 gram in 5 mls @ 60 mls/hr 08/30/24 18:00
Ancef IV 08/31/24 02:04
Q8H LILY
Levetiracetam 1,000 mg 08/30/24 14:07
Levetiracetam (100 Mg/Ml) 500 Mg/5 Ml Vial IV 08/30/24 14:08
NOW STA
Levetiracetam 500 mg 08/30/24 20:00
Levetiracetam (100 Mg/Ml) 500 Mg/5 Ml Vial IV 09/27/24 19:59
Q12 LILY
Loperamide HCl 2 mg 08/29/24 19:47
Loperamide 2 Mg Capsule PO 09/26/24 19:46
DAILYPRN PRN
loose stool
Lorazepam 0.5 mg 08/29/24 19:47
Lorazepam 0.5 Mg Tablet PO 09/26/24 19:46
BIDPRN PRN
anxiety
Magnesium Hydroxide 30 ml 08/30/24 09:12
Milk Of Magnesia 30 Ml Cup PO 09/27/24 09:11
DAILYPRN PRN
constipation
Mupirocin 0 applic 08/30/24 20:00
Mupirocin 2% (Ointment) 22 Gram Tube NASAL 08/31/24 20:01
BID LILY
Non-Formulary Medication 1 drop 08/29/24 19:47
Olopatadine BOTH EYES
DAILYPRN PRN
allergies
Ondansetron HCl 4 mg 08/29/24 19:47
Ondansetron 4 Mg/2 Ml Vial IV 09/26/24 19:46
Q6HPRN PRN
NAUSEA/VOMITING
Oxycodone HCl 2.5 mg 08/30/24 09:12
Oxycodone 5 Mg Regular Release Tablet PO 09/13/24 09:11
Q4HPRN PRN
mild pain
Pantoprazole Sodium 40 mg 08/30/24 08:00 08/30/24 08:07
Pantoprazole 40 Mg Delayed Release Tablet PO 09/27/24 07:59 40 mg
DAILY LILY Administration
Polyethylene Glycol 17 grams 08/29/24 20:00 08/30/24 08:07
Polyethylene Glycol Powder 17 Grams Packet PO 09/26/24 19:59 Not Given
BID LILY
Prochlorperazine Maleate 5 mg 08/30/24 09:12
Prochlorperazine 5 Mg Tablet PO 09/27/24 09:11
Q6HPRN PRN
nausea/vomiting
Sennosides 8.6 mg 08/29/24 19:47
Sennosides (Senokot) 8.6 Mg Tablet PO 09/26/24 19:46
HSPRN PRN
constipation
Sodium Chloride 0 flush 08/29/24 20:00
Sodium Chloride 0.9% (Flush) Syringe IV 09/26/24 19:59
PER PROTOCOL LILY
Tamsulosin HCl 0.4 mg 08/30/24 09:12
Tamsulosin 0.4 Mg Capsule PO 09/27/24 09:11
DAILYPRN PRN
bladder scan volume > 400 mL
Home Medications
-
Home Medications
acetaminophen 325 mg tablet 650 mg PO Q4HPRN PRN mild pain 11/19/22
evolocumab 140 mg/mL subcutaneous pen injector (Repatha SureClick) 140 mg SC MONTHLY High Cholesterol 11/19/22
docusate sodium 100 mg capsule 100 mg PO HS Constipation 04/16/23
pantoprazole 40 mg tablet,delayed release (Protonix) 40 mg PO DAILY Gastrointestinal Issue 04/16/23
sennosides 8.6 mg tablet (senna) 8.6 mg PO HSPRN PRN constipation 06/12/23
apixaban 2.5 mg tablet (Eliquis) 2.5 mg PO BID #0 tabs 06/24/23
citalopram 10 mg tablet 10 mg PO HS Depression 08/29/24
citalopram 40 mg tablet 40 mg PO HS Depression 08/29/24
dextromethorphan-guaifenesin 5 mg-100 mg/5 mL oral liquid 10 ml PO DAILYPRN PRN cough 08/29/24
fluticasone propionate 50 mcg/actuation nasal spray,suspension 2 spray intranasal DAILYPRN PRN allergies 08/29/24
hydrocortisone 2.5 % topical cream with perineal applicator 1 applic DE TID Skin Issues 08/29/24
loperamide 2 mg capsule 2 mg PO DAILYPRN PRN loose stool 08/29/24
lorazepam 0.5 mg tablet 0.5 mg PO BIDPRN PRN anxiety 08/29/24
olopatadine 0.2 % eye drops 1 drp BOTH EYES DAILYPRN PRN allergies 08/29/24
polyethylene glycol 3350 17 gram oral powder packet (Miralax) 17 g PO BID Constipation 08/29/24
witch rory 50 % topical pads (Tucks (witch rory)) 1 pad topical QIDPRN PRN hemorrhoid pain 08/29/24
[2024-08-30 14:05] LABS: Hematocrit 34.7 % (37.0-47.0); Hemoglobin 11.2 g/dL (12.0-16.0); Mean Corp Hgb Conc. 32.3 g/dL (33.0-37.0); Mean Corpuscular Volume 99.1 fL (81.0-99.0); Platelet Count 292 10^3/uL (130-400); Red Cell Dist. Width 12.9 % (11.5-14.5); White Blood Cell Count 14.7 10^3/uL (4.8-10.8)
--- NOTE | 2024-08-30 14:08 | W.PN.UPDATE ---
Update Note
Progress Note Update
Rapid response called for unresponsiveness, agonal breathing. Assessed patient at the bedside again. Glucose normal, vital signs essentially normal, on nonrebreather facemask.
IV Narcan 0.4 mg administered with gradual improvement in mental status and breathing. Able to follow commands now. She did get a low-dose of IV Dilaudid 0.6 mg in the recovery room after surgery today.
Daughter and family at the bedside, agree with improvement.
Nursing has noted some tonic-clonic activity lasting less than 30 seconds, she did not turn blue. Questionable seizure.
Consult neurology
CT head ordered.
Transfer to IMU.
Total critical care time 35 minutes.
[2024-08-30 14:12] LABS: ALT (SGPT) 20 U/L (0-35); AST (SGOT) 25 U/L (14-36); Albumin 3.5 g/dl (3.5-5.0); Alkaline Phosphatase 75 U/L (38-126); Blood Urea Nitrogen 29 mg/dl (7-17); Calcium 9.2 mg/dl (8.4-10.2); Carbon Dioxide 20 mmol/L (22-30); Chloride 109 mmol/L (98-107); Estimated Creatinine Clearance 20 ml/min; Glucose 147 mg/dl (70-99); Potassium 4.6 mmol/L (3.5-5.1); Sodium 142 mmol/L (135-145); Total Bilirubin 0.5 mg/dl (0.2-1.3); eGFR 31.41
[2024-08-30 14:18] LABS: INR 1.24; PT 15.9 Sec (11.4-14.6)
[2024-08-30 14:19] LABS: APTT 28.2 Sec (23.4-35.0)
--- NOTE | 2024-08-30 14:24 | PTCARENOTE ---
from PACU on 6L at 89-90, increased to 10L to get to 92% on simple mask at 1300. placed continuous pulse ox placed Dr. Dumont in room. 1332: tonic clonic seizure noted by nurse, rapid called, BS 137 BP 168/96 124 RR12 88 ECG completed, placed on
ECG leads, RT placed on rebreather O2 turned up pulse ox to 98%, 0.4mg Naloxone to reverse, pt immediately fidgety and moving, mumbled one word to family, eyes wide not blinking, head CT ordered, to IMU [id number] report to nurse given, ICU nurses
transferred. last BP 120/88 hr 124 on a simple mask 92%
[2024-08-30 14:30] LABS: Troponin I 0.038 ng/ml
--- NOTE | 2024-08-30 14:45 | PTCARENOTE ---
Pt brought from CT scan by Icu nurse, pt unresponsive on 10l O2 . Neurologist here ATivan and Keppra given at bedside. Pt placed on on breather at 15 liters mouth breathing POX 93%. Family spoke with neurogist on phone, Family leaning toward
comfort care.
[2024-08-30] MEDS: KEPPRA 1000 MG IV (14:47)
[2024-08-30] MEDS: ATIVAN 1 MG IV ×3 (14:47→19:18)
[2024-08-30 15:22] LABS: TSH Reflex To Free T4 3.19 uIU/ml (0.47-4.68)
[2024-08-30 15:30] LABS: Creatine Phosphokinase 252 U/L (30-135); Magnesium 2.1 mg/dl (1.6-2.3)
--- NOTE | 2024-08-30 15:57 | W.PN.UPDATE ---
Update Note
Progress Note Update
Called to the bedside by nursing to speak with family. 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 Patient noted to be agonal he breathing, on nonrebreathe, with tachycardia and heart rate 110/min. Discussed with
the family the process of comfort measures and the medications that could be provided and symptoms that would be treated if they decided to go this route. The family decided that they want to honor the patient's wish (recently had goals of care
discussion where she elected for comfort measures in this circumstance) and transition to comfort measures. Ordered morphine IV as needed with transition to drip if indicated. Other comfort measures including Ativan, Zofran, bowel regimen as
needed ordered. Discontinued now on comfort based medications. Suspect that she could pass overnight
[2024-08-30] MEDS: MORPHINE SULFATE 1 MG IV ×5 (16:03→21:22)
--- NOTE | 2024-08-30 16:16 | PTCARENOTE ---
Dr Correa spoke with family re comfort care, pt now on step 1 for morphine for dyspnea. Pt given 1 mg as ordered .Family at bedside. Kitchen called for comfort tray
--- NOTE | 2024-08-30 17:51 | PTCARENOTE ---
PACU addendum: Patient taken post-op to room 2108. Report given to Kira. Dr. Lopez and Kira at bedside patient responding to simple command, nodding her head appropriately to questions, moving her feet.
--- NOTE | 2024-08-30 18:16 | PTCARENOTE ---
O2 to 2l monitors dc. Pt turned. No urine out put . Warm too touch
--- NOTE | 2024-08-30 18:34 | PTCARENOTE ---
Pt rings removed and given to daughter Candelaria.
[2024-08-30] MEDS: MORPHINE 100 IV (21:37)
--- NOTE | 2024-08-30 22:00 | PTCARENOTE ---
Initiated morphine gtt on patient this evening. Pt received 3 doses of 1 mg of morphine x3. Explained plan of care to patients family at bedside. Pt restless and tachypneic prior. Will continue to monitor.
[2024-08-30] MEDS: MORPHINE SULFATE 2 MG IV (22:35)
[2024-08-31] MEDS: ATIVAN 1 MG IV (03:31)
[2024-08-31] MEDS: MORPHINE SULFATE 2 MG IV ×2 (03:31→06:44)
[2024-08-31] MEDS: ROBINUL 0.2 MG IV (06:45)
--- NOTE | 2024-08-31 07:19 | W.PN.HOSP.TC ---
Today's Communication/Plan
-
Continue comfort measures
Assessment / Plan
Assessment / Plan
Gen-unresponsive, agonal breathing
HEENT-NC, AT
Neck-supple
CV-reg, no M, +S1/S2
Lungs-clear B/L
Abd-soft, NT, ND
Ext-no edema
Musculoskeletal-no cyanosis, clubbing
Skin-warm and dry, left lateral hip incision intact with dressing
Acute postoperative hypoxic respiratory failure -patient is at the end of life, agree with comfort measures, agree with IV morphine, IV Ativan. Discontinue oxygen, goal of comfort. Discontinue other medications. Discussed with family and nursing.
Family in agreement with comfort measures. Family wants to abide by patient's prior wishes for comfort measures at the end of life.
May have had hypoxic seizures yesterday noted by neurology.
Acute traumatic left femoral neck fracture -due to fall, underlying osteoporosis. Underwent left hip hemiarthroplasty 08/30.
History of strokes -daughter denies history of atrial fibrillation.
History of DVT
Chronic spinal stenosis
Hyperlipidemia
GERD/hiatal hernia
DNR -confirmed with patient's daughter.
Anticipated Discharge: Today
Subjective/Interval History
-
Date of Service: August 31, 2024
Patient seen and examined. Family at the bedside. Patient is unresponsive, agonal breathing.
Objective Data
-
Labs:
Laboratory Results
08/31/24
06:00
Sodium Cancelled
Potassium Cancelled
Chloride Cancelled
Carbon Dioxide Cancelled
BUN Cancelled
Creatinine Cancelled
Glucose Cancelled
Calcium Cancelled
Vital Signs:
Vital Signs
Temp Pulse Resp BP Pulse Ox
97.2 F 102 16 104/66 88
08/30/24 19:00 08/30/24 20:00 08/30/24 20:00 08/30/24 20:00 08/30/24 20:00
I&O
08/30/24 08/31/24 09/01/24
06:59 06:59 06:59
Intake Total 1065 / 1065 50 / 50
Output Total 100 / 100
Balance 965 / 965 50 / 50
Review of Systems
-
Unable to obtain full review of systems at this time due to: Acuity
--- NOTE | 2024-08-31 08:43 | W.PN.UPDATE ---
Update Note
Progress Note Update
I evaluated the patient at bedside. The patient's family is at bedside as well. Unfortunately yesterday afternoon the patient declined medically with respiratory failure and seizure activity. I reviewed medical team's notes. The family and
medical team have agreed to comfort care without further advanced resuscitation attempts. I discussed with the family about the surgery and possible etiologies for her medical decline. I'm available for further questions/concerns from the family
should any arise.
[2024-08-31 10:50] VITALS: BP 59/40
--- NOTE | 2024-08-31 11:03 | PTCARENOTE ---
Pt on comfort measures. Family present. Morphine gtt infusing per orders at step one. Pt resting comfortably at this time. Family educated on end of life care plan, emotional support provided.
--- NOTE | 2024-08-31 11:37 | PTCARENOTE ---
11:35-Pt's family member to desk asking for pulse check. This RN assessed pt, no spontaneous heart tones or lung sounds auscultated. Dr Lopez notified to pronounce pt. Emotional support provided to family.
--- NOTE | 2024-08-31 11:46 | W.PN.DEATH ---
Pronouncement of
-
Called to see patient to pronounce.
No spontaneous heart tones or respirations noted.
Patient not responsive to verbal stimuli.
Patient is pronounced .
Time of : 11:35
Date of : 08/31/24
Cause of : Hypoxia, possible seizures, hip fracture
Family Notified: Yes
--- NOTE | 2024-08-31 12:43 | CHAP ---
Visited Ladonna at 10:15. She was sleeping comfortably, non-responsive, with family at the bedside. They shared that Ladonna 'had a good life, and is at peace with things.' They also reported that Fr. Ovalle of [facility] came this morning to
administer Sacrament of the Sick. Emotional and spiritual support provided.
--- NOTE | 2024-08-31 13:28 | PTCARENOTE ---
Addendum entered by Jes Valdes 08/31/24 14:21:
Pt transported to [facility] [place].
Original Note:
MATTHEW called, pt is NOT a candidate d/t her age. Postmortem care completed. Pt's family insisted pt be dressed in clothing from home.
== END 2024-08-31 14:10 | disposition expired | DRG 521 ==
LOC: IMU 18:28
PROVIDERS: Registered Nurse; ADMITTING PHYSICIAN Hospitalist; CONSULT PHYSICIAN Orthopaedic Surgery; CONSULT PHYSICIAN Psychiatry & Neurology Neurology; EMERGENCY PHYSICIAN Emergency Medicine; FAMILY PHYSICIAN Internal Medicine Cardiovascular Disease
PROC: 0SRS0J9 Replacement of Left Hip Joint, Femoral Surface with Synthetic Substitute, Cemented, Open Approach (ICD-10-PCS; 2024-08-30)
DX: S72.002A Fracture of unspecified part of neck of left femur, initial encounter for closed fracture (principal); J95.821 Acute postprocedural respiratory failure; I47.10 Supraventricular tachycardia, unspecified; M80.052A Age-related osteoporosis with current pathological fracture, left femur, initial encounter for fracture; Z86.73 Personal history of transient ischemic attack (TIA), and cerebral infarction without residual deficits; Z86.718 Personal history of other venous thrombosis and embolism; Z66 Do not resuscitate; G40.901 Epilepsy, unspecified, not intractable, with status epilepticus; R09.02 Hypoxemia; Z51.5 Encounter for palliative care; K21.9 Gastro-esophageal reflux disease without esophagitis; M48.00 Spinal stenosis, site unspecified; E78.00 Pure hypercholesterolemia, unspecified; W01.0XXA Fall on same level from slipping, tripping and stumbling without subsequent striking against object, initial encounter; D64.9 Anemia, unspecified; F41.9 Anxiety disorder, unspecified; F32.A Depression, unspecified; I12.9 Hypertensive chronic kidney disease with stage 1 through stage 4 chronic kidney disease, or unspecified chronic kidney disease; N18.9 Chronic kidney disease, unspecified; Z79.01 Long term (current) use of anticoagulants; S09.90XA Unspecified injury of head, initial encounter; Z82.3 Family history of stroke; Z88.0 Allergy status to penicillin; M41.9 Scoliosis, unspecified
CPT/HCPCS: 70450; 71045; 72125; 73502; 80053; 82550; 82962; 83735; 84443; 84484; 85025; 85027; 85610; 85730; 86850; 86900; 86901; 87070; 93005; 96374; 96375; 99285; C1713; C1776